=== PATIENT | female | born 1985 | race Caucasian/White ===

== ENCOUNTER → 2017-05-09 | Outpatient (CLI) | payer OTHER ==
[~2017-05-09] MED LIST: ACET325 PO; ALBIPROI INH; ALBU90OI IH; ALBU90OI INH; ALBU90OI61 INH; ALPR.25 PO; AZIT250 PO; AZIT500 PO; Aldactone50 MG PO; BUME1 PO; BUME2 PO; CARV3.125 PO; CARV6.25 PO; CEFU50SU PO; CEPH500 PO; CIPR500 PO; CLIN300 PO; CYCL10 PO; Coreg6.25 MG PO; Culturelle1 CAP PO; ELIQUIS5 MG PO; ERYT500 PO; ESCI10; EXPECTA LIPIL PO; FLUSAL1005; FURO20 PO; Flovent 110 MCG12 GM INH; HYDACE5 PO; HYDACE5325 PO; HYDGUAL120 PO; HYDHCL25 PO; HYDR1TAB94 PO; LEVO750 PO; LISI20 PO; LISI5 PO; LOSA25 PO; Lisinopril2.5 MG PO; Lopressor 25 mg25 MG PO; MAGNESIUM400 MG PO; MAGOXI400 PO; METF500; METF500 PO; METO25; METO25 PO; METO25ER PO; METR500 PO; MULVITMINE; MULVITMINE PO; Metamucil Smooth1 EA PO; NAPR500 PO; NITR100CA PO; Norco 10-325 T1 EACH PO; OXYACE5T; OXYC5 PO; Oxycodone-Apap1 EAC3 PO; PANT40 PO; POTCHL10ER; PRED20 PO; PREGESTERONE PO; PRENZ PO; PROM25 PO; PROMETHAZINE-P118 M1 PO; Pantoprazole So40 MG PO; Prinivil10 MG PO; Prinivil5 MG PO; SPIR25 PO; SPIR50 PO; SULTRIDS PO; TORS10 PO; TORSE20 PO; TRAZ50 PO; TUMS200 MG PO; Ventolin/Prove6.7 GM INH; XARELTO20 MG PO; YASMIN
[2017-05-09 17:57] LABS: Specimen Source URINE
[2017-05-09 18:46] LABS: Appearance, Urine Hazy (Clear); Bilirubin, Urine Neg (Neg); Blood, Urine 5+ (Neg); Color, Urine Yellow (P-Yellow); Glucose Qualitative, Urine Neg (Neg); Ketones, Urine Neg (Neg); Leukocyte Esterase, Urine 3+ (Neg); Nitrite, Urine Neg (Neg); Protein, Urine 1+ (Neg); Specific Gravity, Urine 1.015 (1.003-1.022); Urobilinogen, Urine NORM (Normal)
[2017-05-09 19:45] LABS: White Blood Cells, Urine 25-50 /hpf (0-5)
[2017-05-09 19:46] LABS: Bacteria Many /hpf; Squamous Epithelial Cells Few /hpf (Few)
[2017-05-10 09:07] LABS: Candida species (DNA Probe) Negative (NEGATIVE); G. vaginalis (DNA Probe) Negative (NEGATIVE); T. vaginalis (DNA Probe) Positive (NEGATIVE)
[2017-05-10 12:09] LABS: Source Urine
== END ==
LOC: LAB 16:45
PROVIDERS: Physician Assistant
DX: N89.8 Other specified noninflammatory disorders of vagina (principal)
CPT/HCPCS: 81001; 87086; 87480; 87491; 87510; 87591; 87660

== ENCOUNTER 2017-07-01 12:12 | Inpatient (IN) | payer OTHER ==
[~2017-07-01] VITALS: Ht 160 cm; Wt 109.9 kg
[~2017-07-01 12:12] MED LIST changes: -ACET325 PO; -CARV6.25 PO; -CEFU50SU PO; -Culturelle1 CAP PO; -ELIQUIS5 MG PO; -Flovent 110 MCG12 GM INH; -HYDHCL25 PO; -METR500 PO; -OXYC5 PO; -Oxycodone-Apap1 EAC3 PO; -POTCHL10ER; -Pantoprazole So40 MG PO
[2017-07-01 12:53] LABS: BASOPHILS ABSOLUTE AUTO 0.08 K/mm3 (0.00-0.23); BASOPHILS PERCENT AUTO 1 % (0-2); EOSINOPHILS ABSOLUTE AUTO 0.03 K/mm3 (0.00-0.68); EOSINOPHILS PERCENT AUTO 0 % (0-6); Hematocrit 34.2 % (33.0-51.0); Hemoglobin 10.2 g/dL (11.5-16.0); IMMATURE GRAN ABSOLUTE AUTO 0.03 K/mm3 (0.00-0.10); IMMATURE GRAN PERCENT AUTO 0 % (0-1); LYMPHOCYTES PERCENT AUTO 15 % (21-46); MONOCYTES ABSOLUTE AUTO 1.17 K/mm3 (0.16-1.47); MONOCYTES PERCENT AUTO 10 % (4-13); Mean Corpuscular HGB 21.6 pg (26.0-34.0); Mean Corpuscular HGB Conc 29.8 g/dL (31.5-36.5); Mean Corpuscular Volume 73 fL (80-100); Mean Platelet Volume 10.1 fL (9.1-12.4); NEUTROPHILS ABSOLUTE AUTO 8.61 K/mm3 (1.96-9.15); NEUTROPHILS PERCENT AUTO 74 % (41-73); NRBC ABSOLUTE 0.06 K/mm3 (0.00-0.02); NRBC Auto 0.5 /100 WBC (0.0-0.2); Platelet Count 510 K/mm3 (150-400); RDW Coefficient Variation 17.4 % (11.7-14.2); RDW Standard Deviation 45.3 fL (35.1-46.3); Red Blood Cell Count 4.72 M/mm3 (3.80-5.20); White Blood Cell Count 11.62 K/mm3 (4.00-11.30)
[2017-07-01 13:22] LABS: Alanine Aminotransfer (ALT/SGP 68 U/L (12-78); Albumin, Blood 2.8 g/dL (3.4-5.0); Albumin/Globulin Ratio 0.7 (0.8-1.8); Alk Phos 107 U/L (50-136); Anion Gap 11 mmol/L (6-16); Aspartate Aminotrans (AST/SGOT 35 U/L (12-37); Bilirubin, Total 1.3 mg/dL (0.1-1.0); Blood Urea Nitrogen 22 mg/dL (8-24); Bun/Creatinine Ratio 23.5 (12.0-20.0); CO2, Blood 24 mmol/L (21-32); Chloride, Blood 101 mmol/L (98-108); Creatinine, Blood 0.94 mg/dL (0.40-1.00); Globulin, Blood 4.1 g/dL (2.2-4.0); Glomerular Filtration Rate >60 (60-); Glucose, Blood 100 mg/dL (70-99); Sodium, Blood 136 mmol/L (136-145); Total Protein, Blood 6.9 g/dL (6.4-8.2); Troponin I 0.017 ng/mL (0.000-0.040)
[2017-07-01] MEDS ORDERED: Pantoprazole So40 MG PO (13:28)
[2017-07-01] MEDS ORDERED: CARV6.25 PO (13:28)
[2017-07-02 05:41] LABS: BASOPHILS ABSOLUTE AUTO 0.08 K/mm3 (0.00-0.23); BASOPHILS PERCENT AUTO 1 % (0-2); EOSINOPHILS ABSOLUTE AUTO 0.18 K/mm3 (0.00-0.68); EOSINOPHILS PERCENT AUTO 3 % (0-6); Hematocrit 30.7 % (33.0-51.0); Mean Corpuscular HGB 21.3 pg (26.0-34.0); Mean Corpuscular HGB Conc 29.3 g/dL (31.5-36.5); Mean Corpuscular Volume 73 fL (80-100); Mean Platelet Volume 10.3 fL (9.1-12.4); NRBC ABSOLUTE 0.05 K/mm3 (0.00-0.02); NRBC Auto 0.7 /100 WBC (0.0-0.2); Platelet Count 430 K/mm3 (150-400); RDW Coefficient Variation 17.4 % (11.7-14.2); RDW Standard Deviation 45.1 fL (35.1-46.3); Red Blood Cell Count 4.22 M/mm3 (3.80-5.20); White Blood Cell Count 6.68 K/mm3 (4.00-11.30)
[2017-07-02 05:42] LABS: IMMATURE GRAN ABSOLUTE AUTO 0.03 K/mm3 (0.00-0.10); IMMATURE GRAN PERCENT AUTO 0 % (0-1); LYMPHOCYTES ABSOLUTE AUTO 2.44 K/mm3 (0.84-5.20); LYMPHOCYTES PERCENT AUTO 37 % (21-46); MONOCYTES ABSOLUTE AUTO 0.77 K/mm3 (0.16-1.47); MONOCYTES PERCENT AUTO 12 % (4-13); NEUTROPHILS ABSOLUTE AUTO 3.18 K/mm3 (1.96-9.15); NEUTROPHILS PERCENT AUTO 48 % (41-73)
[2017-07-02 06:16] LABS: Anion Gap 12 mmol/L (6-16); Blood Urea Nitrogen 26 mg/dL (8-24); CO2, Blood 25 mmol/L (21-32); Calcium, Blood 7.8 mg/dL (8.5-10.1); Chloride, Blood 99 mmol/L (98-108); Creatinine, Blood 1.04 mg/dL (0.40-1.00); Glomerular Filtration Rate >60 (60-); Glucose, Blood 99 mg/dL (70-99); Potassium, Blood 3.6 mmol/L (3.5-5.5); Sodium, Blood 136 mmol/L (136-145)
[2017-07-03] MEDS ORDERED: CEFU50SU PO (10:01)
[2017-11-30] MEDS ORDERED: Culturelle1 CAP PO (15:00)
[2017-11-30] MEDS ORDERED: CIPR500 PO (15:01)
[2017-11-30] MEDS ORDERED: METR500 PO (15:02)
[2018-01-15] MEDS ORDERED: HYDR1TAB94 PO (14:12)
[2018-01-15] MEDS ORDERED: HYDHCL25 PO (14:32)
[2018-02-25] MEDS ORDERED: ELIQUIS5 MG PO (13:51)
[2018-02-25] MEDS ORDERED: POTCHL10ER (13:53)
== END 2017-07-03 10:20 | disposition home or self-care (01) | DRG 194 ==
LOC: ER 12:12 → MEDS 18:05 → ER 20:07 → MEDS 20:07 → ENPENDDIS 07-03 08:58 → MEDS 07-03 10:20
PROVIDERS: Hospitalist; Physician Assistant
DX: J18.9 Pneumonia, unspecified organism (principal); R04.2 Hemoptysis; I47.2 Ventricular tachycardia; I42.9 Cardiomyopathy, unspecified; I50.40 Unspecified combined systolic (congestive) and diastolic (congestive) heart failure; Z68.41 Body mass index [BMI] 40.0-44.9, adult; E66.9 Obesity, unspecified; D64.9 Anemia, unspecified; Z86.711 Personal history of pulmonary embolism; Z79.899 Other long term (current) drug therapy; Z79.84 Long term (current) use of oral hypoglycemic drugs; Z88.0 Allergy status to penicillin; Z88.8 Allergy status to other drugs, medicaments and biological substances
CPT/HCPCS: 36415; 71046; 71260; 80048; 80053; 83880; 84484; 85025; 86850; 86900; 86901; 93005; 93010; 96374; 99285; J0696; J1650; J2405; J7030; Q9967

== ENCOUNTER 2017-07-12 08:46 | Emergency (ER) | payer OTHER ==
[~2017-07-12] VITALS: Ht 160 cm; Wt 104.3 kg
[~2017-07-12 08:46] MED LIST changes: +CARV6.25 PO; +CEFU50SU PO; +Pantoprazole So40 MG PO
[2017-07-12 09:50] LABS: BASOPHILS ABSOLUTE AUTO 0.09 K/mm3 (0.00-0.23); BASOPHILS PERCENT AUTO 1 % (0-2); EOSINOPHILS ABSOLUTE AUTO 0.04 K/mm3 (0.00-0.68); EOSINOPHILS PERCENT AUTO 1 % (0-6); Hematocrit 32.3 % (33.0-51.0); Hemoglobin 9.3 g/dL (11.5-16.0); IMMATURE GRAN ABSOLUTE AUTO 0.03 K/mm3 (0.00-0.10); IMMATURE GRAN PERCENT AUTO 0 % (0-1); LYMPHOCYTES ABSOLUTE AUTO 1.58 K/mm3 (0.84-5.20); LYMPHOCYTES PERCENT AUTO 20 % (21-46); MONOCYTES ABSOLUTE AUTO 0.72 K/mm3 (0.16-1.47); MONOCYTES PERCENT AUTO 9 % (4-13); Mean Corpuscular HGB 20.8 pg (26.0-34.0); Mean Corpuscular HGB Conc 28.8 g/dL (31.5-36.5); Mean Corpuscular Volume 72 fL (80-100); Mean Platelet Volume 10.4 fL (9.1-12.4); NEUTROPHILS ABSOLUTE AUTO 5.46 K/mm3 (1.96-9.15); NEUTROPHILS PERCENT AUTO 69 % (41-73); NRBC ABSOLUTE 0.05 K/mm3 (0.00-0.02); NRBC Auto 0.6 /100 WBC (0.0-0.2); Platelet Count 414 K/mm3 (150-400); RDW Coefficient Variation 18.1 % (11.7-14.2); RDW Standard Deviation 46.2 fL (35.1-46.3); Red Blood Cell Count 4.48 M/mm3 (3.80-5.20); White Blood Cell Count 7.92 K/mm3 (4.00-11.30)
[2017-07-12 10:09] LABS: Alanine Aminotransfer (ALT/SGP 34 U/L (12-78); Albumin, Blood 2.6 g/dL (3.4-5.0); Albumin/Globulin Ratio 0.6 (0.8-1.8); Alk Phos 96 U/L (50-136); Anion Gap 11 mmol/L (6-16); Aspartate Aminotrans (AST/SGOT 23 U/L (12-37); Bilirubin, Total 2.5 mg/dL (0.1-1.0); Blood Urea Nitrogen 27 mg/dL (8-24); Bun/Creatinine Ratio 28.2 (12.0-20.0); CO2, Blood 26 mmol/L (21-32); Calcium, Blood 8.6 mg/dL (8.5-10.1); Chloride, Blood 99 mmol/L (98-108); Creatinine, Blood 0.96 mg/dL (0.40-1.00); Glomerular Filtration Rate >60 (60-); Glucose, Blood 110 mg/dL (70-99); Potassium, Blood 3.8 mmol/L (3.5-5.5); Sodium, Blood 136 mmol/L (136-145); Total Protein, Blood 6.6 g/dL (6.4-8.2); Troponin I <0.015 ng/mL (0.000-0.040)
[2017-07-12] MEDS ORDERED: LEVO750 PO (12:07)
[2017-11-30] MEDS ORDERED: Culturelle1 CAP PO (15:00)
[2017-11-30] MEDS ORDERED: CIPR500 PO (15:01)
[2017-11-30] MEDS ORDERED: METR500 PO (15:02)
[2018-01-15] MEDS ORDERED: HYDR1TAB94 PO (14:12)
[2018-01-15] MEDS ORDERED: HYDHCL25 PO (14:32)
[2018-02-25] MEDS ORDERED: ELIQUIS5 MG PO (13:51)
[2018-02-25] MEDS ORDERED: POTCHL10ER (13:53)
== END 2017-07-12 12:47 | disposition home or self-care (01) ==
LOC: ER 08:46
PROVIDERS: Emergency Medicine
DX: J18.9 Pneumonia, unspecified organism (principal); R04.2 Hemoptysis; I50.9 Heart failure, unspecified; Z87.891 Personal history of nicotine dependence; Z88.0 Allergy status to penicillin; Z88.8 Allergy status to other drugs, medicaments and biological substances; Z79.899 Other long term (current) drug therapy
CPT/HCPCS: 36415; 71046; 80053; 83690; 83880; 84484; 85025; 93005; 93010; 96374; 99283; J2405

== ENCOUNTER 2017-07-15 10:32 | Inpatient (IN) | payer OTHER ==
[~2017-07-15] VITALS: Ht 160 cm; Wt 123.8 kg
[2017-07-15 11:06] LABS: BASOPHILS ABSOLUTE AUTO 0.06 K/mm3 (0.00-0.23); BASOPHILS PERCENT AUTO 1 % (0-2); EOSINOPHILS ABSOLUTE AUTO 0.13 K/mm3 (0.00-0.68); EOSINOPHILS PERCENT AUTO 2 % (0-6); Hematocrit 29.6 % (33.0-51.0); Hemoglobin 8.5 g/dL (11.5-16.0); IMMATURE GRAN ABSOLUTE AUTO 0.03 K/mm3 (0.00-0.10); IMMATURE GRAN PERCENT AUTO 0 % (0-1); LYMPHOCYTES ABSOLUTE AUTO 1.57 K/mm3 (0.84-5.20); LYMPHOCYTES PERCENT AUTO 22 % (21-46); MONOCYTES PERCENT AUTO 12 % (4-13); Mean Corpuscular HGB 20.3 pg (26.0-34.0); Mean Corpuscular HGB Conc 28.7 g/dL (31.5-36.5); Mean Corpuscular Volume 71 fL (80-100); Mean Platelet Volume 10.2 fL (9.1-12.4); NEUTROPHILS ABSOLUTE AUTO 4.57 K/mm3 (1.96-9.15); NEUTROPHILS PERCENT AUTO 63 % (41-73); NRBC ABSOLUTE 0.09 K/mm3 (0.00-0.02); NRBC Auto 1.2 /100 WBC (0.0-0.2); Platelet Count 390 K/mm3 (150-400); RDW Coefficient Variation 18.3 % (11.7-14.2); RDW Standard Deviation 45.3 fL (35.1-46.3); Red Blood Cell Count 4.19 M/mm3 (3.80-5.20); White Blood Cell Count 7.26 K/mm3 (4.00-11.30)
[2017-07-15 11:26] LABS: Alanine Aminotransfer (ALT/SGP 43 U/L (12-78); Albumin, Blood 2.7 g/dL (3.4-5.0); Albumin/Globulin Ratio 0.7 (0.8-1.8); Alk Phos 109 U/L (50-136); Anion Gap 10 mmol/L (6-16); Aspartate Aminotrans (AST/SGOT 36 U/L (12-37); Bilirubin, Total 2.1 mg/dL (0.1-1.0); Blood Urea Nitrogen 44 mg/dL (8-24); Bun/Creatinine Ratio 39.3 (12.0-20.0); CO2, Blood 28 mmol/L (21-32); Calcium, Blood 8.4 mg/dL (8.5-10.1); Chloride, Blood 97 mmol/L (98-108); Creatinine, Blood 1.12 mg/dL (0.40-1.00); Globulin, Blood 3.8 g/dL (2.2-4.0); Glomerular Filtration Rate >60 (60-); Glucose, Blood 83 mg/dL (70-99); Potassium, Blood 3.4 mmol/L (3.5-5.5); Sodium, Blood 135 mmol/L (136-145); Total Protein, Blood 6.5 g/dL (6.4-8.2); Troponin I <0.015 ng/mL (0.000-0.040)
[2017-07-15] MEDS ORDERED: Flovent 110 MCG12 GM INH (15:58)
[2017-07-15 17:13] LABS: Hematocrit 28.7 % (33.0-51.0); Hemoglobin 8.1 g/dL (11.5-16.0)
[2017-07-16 04:24] LABS: BASOPHILS ABSOLUTE AUTO 0.05 K/mm3 (0.00-0.23); BASOPHILS PERCENT AUTO 1 % (0-2); EOSINOPHILS ABSOLUTE AUTO 0.18 K/mm3 (0.00-0.68); EOSINOPHILS PERCENT AUTO 3 % (0-6); Hematocrit 28.2 % (33.0-51.0); Hemoglobin 8.2 g/dL (11.5-16.0); Mean Corpuscular HGB 20.4 pg (26.0-34.0); Mean Corpuscular HGB Conc 29.1 g/dL (31.5-36.5); Mean Corpuscular Volume 70 fL (80-100); Mean Platelet Volume 10.7 fL (9.1-12.4); NRBC ABSOLUTE 0.09 K/mm3 (0.00-0.02); NRBC Auto 1.3 /100 WBC (0.0-0.2); Platelet Count 356 K/mm3 (150-400); RDW Coefficient Variation 18.2 % (11.7-14.2); RDW Standard Deviation 44.8 fL (35.1-46.3); Red Blood Cell Count 4.02 M/mm3 (3.80-5.20); White Blood Cell Count 7.19 K/mm3 (4.00-11.30)
[2017-07-16 04:34] LABS: IMMATURE GRAN ABSOLUTE AUTO 0.04 K/mm3 (0.00-0.10); IMMATURE GRAN PERCENT AUTO 1 % (0-1); LYMPHOCYTES ABSOLUTE AUTO 2.21 K/mm3 (0.84-5.20); LYMPHOCYTES PERCENT AUTO 31 % (21-46); MONOCYTES ABSOLUTE AUTO 1.02 K/mm3 (0.16-1.47); MONOCYTES PERCENT AUTO 14 % (4-13); NEUTROPHILS ABSOLUTE AUTO 3.69 K/mm3 (1.96-9.15); NEUTROPHILS PERCENT AUTO 51 % (41-73)
[2017-07-16 04:41] LABS: Bun/Creatinine Ratio 37.4 (12.0-20.0); Calcium, Blood 7.9 mg/dL (8.5-10.1); Creatinine, Blood 1.23 mg/dL (0.40-1.00); Potassium, Blood 3.4 mmol/L (3.5-5.5)
[2017-07-16 07:42] LABS: Magnesium, Blood 2.4 mg/dL (1.6-2.4)
[2017-07-16 11:41] LABS: U Amphetamine Screen Not Detected; U Barbituate Screen Not Detected; U Benzodiazapine Screen Not Detected; U Buprenorphine Screen Not Detected; U Cannabinoids Screen Not Detected; U Cocaine Screen Not Detected; U Methadone Screen Not Detected; U Methamphetamine Screen Not Detected; U Opiates Screen Not Detected; U Oxycodone Screen Not Detected; U Phencyclidine Screen Not Detected; U Propoxyphene Screen Not Detected
[2017-07-16 11:46] LABS: Percent Saturation 5.1 % (15.0-50.0)
[2017-07-16 14:35] LABS: Source, Urine Voided
[2017-07-16 14:41] LABS: Appearance, Urine Clear (Clear); Bilirubin, Urine Neg (Neg); Blood, Urine Neg (Neg); Color, Urine Yellow (P-Yellow); Glucose Qualitative, Urine Neg (Neg); Ketones, Urine Neg (Neg); Leukocyte Esterase, Urine Neg (Neg); Nitrite, Urine Neg (Neg); Protein, Urine Neg (Neg); Specific Gravity, Urine 1.015 (1.003-1.022); Urobilinogen, Urine NORM (Normal)
[2017-07-17 04:02] LABS: Hematocrit 29.1 % (33.0-51.0); Hemoglobin 8.4 g/dL (11.5-16.0); Mean Corpuscular HGB 20.4 pg (26.0-34.0); Mean Corpuscular HGB Conc 28.9 g/dL (31.5-36.5); Mean Corpuscular Volume 71 fL (80-100); Mean Platelet Volume 10.6 fL (9.1-12.4); NRBC ABSOLUTE 0.09 K/mm3 (0.00-0.02); NRBC Auto 1.2 /100 WBC (0.0-0.2); Platelet Count 346 K/mm3 (150-400); RDW Coefficient Variation 18.4 % (11.7-14.2); RDW Standard Deviation 45.8 fL (35.1-46.3); Red Blood Cell Count 4.12 M/mm3 (3.80-5.20); White Blood Cell Count 7.41 K/mm3 (4.00-11.30)
[2017-07-17 04:20] LABS: Bun/Creatinine Ratio 38.8 (12.0-20.0); Calcium, Blood 7.8 mg/dL (8.5-10.1); Creatinine, Blood 1.21 mg/dL (0.40-1.00); Potassium, Blood 4.5 mmol/L (3.5-5.5)
[2017-07-17 04:48] LABS: BASOPHILS PERCENT MAN 0 % (0-2); EOSINOPHILS ABSOLUTE MAN 0.14 K/mm3 (0.00-0.68); EOSINOPHILS PERCENT MAN 2 % (0-6); LYMPHOCYTES % ATYPICAL MANUAL 9 % (0-0); LYMPHOCYTES ABSOLUTE MAN 2.96 K/mm3 (0.84-5.20); LYMPHOCYTES PERCENT MAN 31 % (21-46); MONOCYTES ABSOLUTE MAN 0.51 K/mm3 (0.16-1.47); MONOCYTES PERCENT MAN 7 % (4-13); NEUTROPHILS ABSOLUTE MAN 3.77 K/mm3 (1.96-9.15); SEG NEUTROPHILS PERCENT MAN 51 % (41-73); TOTAL CELLS COUNTED 100
[2017-07-18 05:14] LABS: Hematocrit 27.1 % (33.0-51.0); Hemoglobin 7.8 g/dL (11.5-16.0); Mean Corpuscular HGB 20.1 pg (26.0-34.0); Mean Corpuscular HGB Conc 28.8 g/dL (31.5-36.5); Mean Corpuscular Volume 70 fL (80-100); Mean Platelet Volume 10.7 fL (9.1-12.4); NRBC ABSOLUTE 0.13 K/mm3 (0.00-0.02); NRBC Auto 1.9 /100 WBC (0.0-0.2); Platelet Count 311 K/mm3 (150-400); RDW Coefficient Variation 18.4 % (11.7-14.2); RDW Standard Deviation 44.7 fL (35.1-46.3); Red Blood Cell Count 3.89 M/mm3 (3.80-5.20); White Blood Cell Count 6.82 K/mm3 (4.00-11.30)
[2017-07-18 05:37] LABS: Bun/Creatinine Ratio 36.5 (12.0-20.0); Calcium, Blood 7.7 mg/dL (8.5-10.1); Creatinine, Blood 1.15 mg/dL (0.40-1.00); Magnesium, Blood 2.3 mg/dL (1.6-2.4); Potassium, Blood 3.8 mmol/L (3.5-5.5)
[2017-07-18 05:38] LABS: BAND PERCENT MAN 1 % (0-8); BASOPHILS PERCENT MAN 0 % (0-2); EOSINOPHILS ABSOLUTE MAN 0.13 K/mm3 (0.00-0.68); EOSINOPHILS PERCENT MAN 2 % (0-6); LYMPHOCYTES % ATYPICAL MANUAL 4 % (0-0); LYMPHOCYTES ABSOLUTE MAN 2.52 K/mm3 (0.84-5.20); LYMPHOCYTES PERCENT MAN 33 % (21-46); MONOCYTES PERCENT MAN 3 % (4-13); NEUTROPHILS ABSOLUTE MAN 3.95 K/mm3 (1.96-9.15); SEG NEUTROPHILS PERCENT MAN 57 % (41-73); TOTAL CELLS COUNTED 100
[2017-07-18 11:31] LABS: ANA Negative (NEG); Myeloperoxidase Antibody <0.2 AI (<1.0)
[2017-07-18 18:23] LABS: ANCA <1:20
[2017-07-19 05:41] LABS: BASOPHILS ABSOLUTE AUTO 0.06 K/mm3 (0.00-0.23); BASOPHILS PERCENT AUTO 1 % (0-2); EOSINOPHILS ABSOLUTE AUTO 0.21 K/mm3 (0.00-0.68); EOSINOPHILS PERCENT AUTO 3 % (0-6); Hematocrit 27.5 % (33.0-51.0); IMMATURE GRAN ABSOLUTE AUTO 0.02 K/mm3 (0.00-0.10); IMMATURE GRAN PERCENT AUTO 0 % (0-1); LYMPHOCYTES ABSOLUTE AUTO 1.99 K/mm3 (0.84-5.20); LYMPHOCYTES PERCENT AUTO 28 % (21-46); MONOCYTES ABSOLUTE AUTO 1.05 K/mm3 (0.16-1.47); MONOCYTES PERCENT AUTO 15 % (4-13); Mean Corpuscular HGB 20.6 pg (26.0-34.0); Mean Corpuscular HGB Conc 29.1 g/dL (31.5-36.5); Mean Corpuscular Volume 71 fL (80-100); Mean Platelet Volume 10.8 fL (9.1-12.4); NEUTROPHILS ABSOLUTE AUTO 3.83 K/mm3 (1.96-9.15); NEUTROPHILS PERCENT AUTO 54 % (41-73); NRBC ABSOLUTE 0.14 K/mm3 (0.00-0.02); Platelet Count 324 K/mm3 (150-400); RDW Coefficient Variation 18.6 % (11.7-14.2); RDW Standard Deviation 45.6 fL (35.1-46.3); Red Blood Cell Count 3.88 M/mm3 (3.80-5.20); White Blood Cell Count 7.16 K/mm3 (4.00-11.30)
[2017-07-19 05:55] LABS: Bun/Creatinine Ratio 31.9 (12.0-20.0); Creatinine, Blood 1.19 mg/dL (0.40-1.00); Potassium, Blood 3.3 mmol/L (3.5-5.5)
[2017-07-20 06:00] LABS: BASOPHILS ABSOLUTE AUTO 0.06 K/mm3 (0.00-0.23); BASOPHILS PERCENT AUTO 1 % (0-2); EOSINOPHILS ABSOLUTE AUTO 0.22 K/mm3 (0.00-0.68); EOSINOPHILS PERCENT AUTO 4 % (0-6); Hematocrit 29.3 % (33.0-51.0); Hemoglobin 8.3 g/dL (11.5-16.0); IMMATURE GRAN ABSOLUTE AUTO 0.03 K/mm3 (0.00-0.10); IMMATURE GRAN PERCENT AUTO 1 % (0-1); LYMPHOCYTES ABSOLUTE AUTO 1.63 K/mm3 (0.84-5.20); LYMPHOCYTES PERCENT AUTO 26 % (21-46); MONOCYTES ABSOLUTE AUTO 0.83 K/mm3 (0.16-1.47); MONOCYTES PERCENT AUTO 13 % (4-13); Mean Corpuscular HGB 20.6 pg (26.0-34.0); Mean Corpuscular HGB Conc 28.3 g/dL (31.5-36.5); Mean Corpuscular Volume 73 fL (80-100); Mean Platelet Volume 10.4 fL (9.1-12.4); NEUTROPHILS ABSOLUTE AUTO 3.42 K/mm3 (1.96-9.15); NEUTROPHILS PERCENT AUTO 55 % (41-73); NRBC Auto 1.6 /100 WBC (0.0-0.2); Platelet Count 290 K/mm3 (150-400); RDW Coefficient Variation 19.9 % (11.7-14.2); RDW Standard Deviation 47.9 fL (35.1-46.3); Red Blood Cell Count 4.03 M/mm3 (3.80-5.20); White Blood Cell Count 6.19 K/mm3 (4.00-11.30)
[2017-07-20 06:21] LABS: Albumin, Blood 2.1 g/dL (3.4-5.0); Anion Gap 10 mmol/L (6-16); Blood Urea Nitrogen 31 mg/dL (8-24); Bun/Creatinine Ratio 31.6 (12.0-20.0); CO2, Blood 26 mmol/L (21-32); Calcium, Blood 7.6 mg/dL (8.5-10.1); Chloride, Blood 102 mmol/L (98-108); Creatinine, Blood 0.98 mg/dL (0.40-1.00); Glomerular Filtration Rate >60 (60-); Glucose, Blood 118 mg/dL (70-99); Phosphorus, Blood 2.8 mg/dL (2.5-4.9); Potassium, Blood 3.6 mmol/L (3.5-5.5); Sodium, Blood 138 mmol/L (136-145)
[2017-07-21 05:28] LABS: BASOPHILS ABSOLUTE AUTO 0.07 K/mm3 (0.00-0.23); BASOPHILS PERCENT AUTO 1 % (0-2); EOSINOPHILS ABSOLUTE AUTO 0.23 K/mm3 (0.00-0.68); EOSINOPHILS PERCENT AUTO 4 % (0-6); Hematocrit 30.9 % (33.0-51.0); Hemoglobin 8.4 g/dL (11.5-16.0); IMMATURE GRAN ABSOLUTE AUTO 0.03 K/mm3 (0.00-0.10); IMMATURE GRAN PERCENT AUTO 1 % (0-1); LYMPHOCYTES ABSOLUTE AUTO 1.85 K/mm3 (0.84-5.20); LYMPHOCYTES PERCENT AUTO 32 % (21-46); MONOCYTES ABSOLUTE AUTO 0.77 K/mm3 (0.16-1.47); MONOCYTES PERCENT AUTO 13 % (4-13); Mean Corpuscular HGB 20.4 pg (26.0-34.0); Mean Corpuscular HGB Conc 27.2 g/dL (31.5-36.5); Mean Corpuscular Volume 75 fL (80-100); NEUTROPHILS PERCENT AUTO 49 % (41-73); NRBC ABSOLUTE 0.07 K/mm3 (0.00-0.02); NRBC Auto 1.2 /100 WBC (0.0-0.2); Platelet Count 290 K/mm3 (150-400); RDW Coefficient Variation 20.8 % (11.7-14.2); RDW Standard Deviation 48.8 fL (35.1-46.3); Red Blood Cell Count 4.12 M/mm3 (3.80-5.20); White Blood Cell Count 5.75 K/mm3 (4.00-11.30)
[2017-07-21 06:14] LABS: Albumin, Blood 2.1 g/dL (3.4-5.0); Anion Gap 10 mmol/L (6-16); Blood Urea Nitrogen 24 mg/dL (8-24); Bun/Creatinine Ratio 26.3 (12.0-20.0); CO2, Blood 24 mmol/L (21-32); Calcium, Blood 7.7 mg/dL (8.5-10.1); Chloride, Blood 104 mmol/L (98-108); Creatinine, Blood 0.91 mg/dL (0.40-1.00); Glomerular Filtration Rate >60 (60-); Glucose, Blood 137 mg/dL (70-99); Magnesium, Blood 1.8 mg/dL (1.6-2.4); Phosphorus, Blood 2.5 mg/dL (2.5-4.9); Potassium, Blood 3.5 mmol/L (3.5-5.5); Sodium, Blood 138 mmol/L (136-145)
[2017-07-22 05:00] LABS: BASOPHILS ABSOLUTE AUTO 0.07 K/mm3 (0.00-0.23); BASOPHILS PERCENT AUTO 1 % (0-2); EOSINOPHILS ABSOLUTE AUTO 0.13 K/mm3 (0.00-0.68); EOSINOPHILS PERCENT AUTO 2 % (0-6); Hematocrit 30.7 % (33.0-51.0); Hemoglobin 8.5 g/dL (11.5-16.0); IMMATURE GRAN ABSOLUTE AUTO 0.03 K/mm3 (0.00-0.10); IMMATURE GRAN PERCENT AUTO 0 % (0-1); LYMPHOCYTES ABSOLUTE AUTO 1.94 K/mm3 (0.84-5.20); LYMPHOCYTES PERCENT AUTO 24 % (21-46); MONOCYTES ABSOLUTE AUTO 0.96 K/mm3 (0.16-1.47); MONOCYTES PERCENT AUTO 12 % (4-13); Mean Corpuscular HGB 20.8 pg (26.0-34.0); Mean Corpuscular HGB Conc 27.7 g/dL (31.5-36.5); Mean Corpuscular Volume 75 fL (80-100); Mean Platelet Volume 10.5 fL (9.1-12.4); NEUTROPHILS PERCENT AUTO 61 % (41-73); NRBC ABSOLUTE 0.03 K/mm3 (0.00-0.02); NRBC Auto 0.4 /100 WBC (0.0-0.2); Platelet Count 301 K/mm3 (150-400); RDW Coefficient Variation 22.1 % (11.7-14.2); Red Blood Cell Count 4.08 M/mm3 (3.80-5.20); White Blood Cell Count 8.13 K/mm3 (4.00-11.30)
[2017-07-22 05:30] LABS: Albumin, Blood 2.3 g/dL (3.4-5.0); Anion Gap 8 mmol/L (6-16); Blood Urea Nitrogen 26 mg/dL (8-24); CO2, Blood 25 mmol/L (21-32); Chloride, Blood 102 mmol/L (98-108); Creatinine, Blood 1.24 mg/dL (0.40-1.00); Glomerular Filtration Rate 54 (60-); Glucose, Blood 109 mg/dL (70-99); Magnesium, Blood 1.7 mg/dL (1.6-2.4); Phosphorus, Blood 3.6 mg/dL (2.5-4.9); Potassium, Blood 4.2 mmol/L (3.5-5.5); Sodium, Blood 135 mmol/L (136-145)
[2017-07-23 04:55] LABS: BASOPHILS ABSOLUTE AUTO 0.09 K/mm3 (0.00-0.23); BASOPHILS PERCENT AUTO 1 % (0-2); EOSINOPHILS PERCENT AUTO 4 % (0-6); Hematocrit 30.4 % (33.0-51.0); Hemoglobin 8.3 g/dL (11.5-16.0); IMMATURE GRAN ABSOLUTE AUTO 0.03 K/mm3 (0.00-0.10); IMMATURE GRAN PERCENT AUTO 0 % (0-1); LYMPHOCYTES ABSOLUTE AUTO 2.02 K/mm3 (0.84-5.20); LYMPHOCYTES PERCENT AUTO 26 % (21-46); MONOCYTES ABSOLUTE AUTO 0.98 K/mm3 (0.16-1.47); MONOCYTES PERCENT AUTO 13 % (4-13); Mean Corpuscular HGB 20.8 pg (26.0-34.0); Mean Corpuscular HGB Conc 27.3 g/dL (31.5-36.5); Mean Corpuscular Volume 76 fL (80-100); Mean Platelet Volume 10.8 fL (9.1-12.4); NEUTROPHILS ABSOLUTE AUTO 4.42 K/mm3 (1.96-9.15); NEUTROPHILS PERCENT AUTO 56 % (41-73); NRBC ABSOLUTE 0.02 K/mm3 (0.00-0.02); NRBC Auto 0.3 /100 WBC (0.0-0.2); Platelet Count 277 K/mm3 (150-400); RDW Standard Deviation 50.2 fL (35.1-46.3); Red Blood Cell Count 3.99 M/mm3 (3.80-5.20); White Blood Cell Count 7.84 K/mm3 (4.00-11.30)
[2017-07-23 05:17] LABS: Albumin, Blood 2.2 g/dL (3.4-5.0); Anion Gap 8 mmol/L (6-16); Blood Urea Nitrogen 32 mg/dL (8-24); Bun/Creatinine Ratio 25.2 (12.0-20.0); CO2, Blood 25 mmol/L (21-32); Calcium, Blood 7.9 mg/dL (8.5-10.1); Chloride, Blood 102 mmol/L (98-108); Creatinine, Blood 1.27 mg/dL (0.40-1.00); Glomerular Filtration Rate 52 (60-); Glucose, Blood 88 mg/dL (70-99); Phosphorus, Blood 4.4 mg/dL (2.5-4.9); Potassium, Blood 4.6 mmol/L (3.5-5.5); Sodium, Blood 135 mmol/L (136-145)
[2017-07-24 04:17] LABS: BASOPHILS ABSOLUTE AUTO 0.07 K/mm3 (0.00-0.23); BASOPHILS PERCENT AUTO 1 % (0-2); EOSINOPHILS ABSOLUTE AUTO 0.38 K/mm3 (0.00-0.68); EOSINOPHILS PERCENT AUTO 5 % (0-6); Hematocrit 31.5 % (33.0-51.0); Hemoglobin 8.7 g/dL (11.5-16.0); IMMATURE GRAN ABSOLUTE AUTO 0.04 K/mm3 (0.00-0.10); IMMATURE GRAN PERCENT AUTO 1 % (0-1); LYMPHOCYTES ABSOLUTE AUTO 1.79 K/mm3 (0.84-5.20); LYMPHOCYTES PERCENT AUTO 24 % (21-46); MONOCYTES ABSOLUTE AUTO 0.87 K/mm3 (0.16-1.47); MONOCYTES PERCENT AUTO 12 % (4-13); Mean Corpuscular HGB 21.4 pg (26.0-34.0); Mean Corpuscular HGB Conc 27.6 g/dL (31.5-36.5); Mean Corpuscular Volume 78 fL (80-100); Mean Platelet Volume 10.4 fL (9.1-12.4); NEUTROPHILS ABSOLUTE AUTO 4.22 K/mm3 (1.96-9.15); NEUTROPHILS PERCENT AUTO 57 % (41-73); Platelet Count 271 K/mm3 (150-400); RDW Standard Deviation 52.5 fL (35.1-46.3); Red Blood Cell Count 4.06 M/mm3 (3.80-5.20); White Blood Cell Count 7.37 K/mm3 (4.00-11.30)
[2017-07-24 04:42] LABS: Albumin, Blood 2.5 g/dL (3.4-5.0); Anion Gap 6 mmol/L (6-16); Blood Urea Nitrogen 38 mg/dL (8-24); Bun/Creatinine Ratio 24.4 (12.0-20.0); CO2, Blood 27 mmol/L (21-32); Calcium, Blood 8.2 mg/dL (8.5-10.1); Chloride, Blood 102 mmol/L (98-108); Creatinine, Blood 1.56 mg/dL (0.40-1.00); Glomerular Filtration Rate 41 (60-); Glucose, Blood 75 mg/dL (70-99); Phosphorus, Blood 5.6 mg/dL (2.5-4.9); Potassium, Blood 4.5 mmol/L (3.5-5.5); Sodium, Blood 135 mmol/L (136-145)
[2017-07-25 04:46] LABS: BASOPHILS ABSOLUTE AUTO 0.05 K/mm3 (0.00-0.23); BASOPHILS PERCENT AUTO 1 % (0-2); EOSINOPHILS ABSOLUTE AUTO 0.31 K/mm3 (0.00-0.68); EOSINOPHILS PERCENT AUTO 5 % (0-6); Hematocrit 33.7 % (33.0-51.0); Hemoglobin 9.3 g/dL (11.5-16.0); IMMATURE GRAN ABSOLUTE AUTO 0.02 K/mm3 (0.00-0.10); IMMATURE GRAN PERCENT AUTO 0 % (0-1); LYMPHOCYTES ABSOLUTE AUTO 1.85 K/mm3 (0.84-5.20); LYMPHOCYTES PERCENT AUTO 28 % (21-46); MONOCYTES ABSOLUTE AUTO 0.69 K/mm3 (0.16-1.47); MONOCYTES PERCENT AUTO 11 % (4-13); Mean Corpuscular HGB 21.3 pg (26.0-34.0); Mean Corpuscular HGB Conc 27.6 g/dL (31.5-36.5); Mean Corpuscular Volume 77 fL (80-100); Mean Platelet Volume 10.3 fL (9.1-12.4); NEUTROPHILS ABSOLUTE AUTO 3.65 K/mm3 (1.96-9.15); NEUTROPHILS PERCENT AUTO 56 % (41-73); Platelet Count 266 K/mm3 (150-400); RDW Standard Deviation 54.6 fL (35.1-46.3); Red Blood Cell Count 4.37 M/mm3 (3.80-5.20); White Blood Cell Count 6.57 K/mm3 (4.00-11.30)
[2017-07-25 05:08] LABS: Albumin, Blood 2.6 g/dL (3.4-5.0); Anion Gap 5 mmol/L (6-16); Blood Urea Nitrogen 27 mg/dL (8-24); Bun/Creatinine Ratio 25.7 (12.0-20.0); CO2, Blood 30 mmol/L (21-32); Calcium, Blood 8.8 mg/dL (8.5-10.1); Chloride, Blood 101 mmol/L (98-108); Creatinine, Blood 1.05 mg/dL (0.40-1.00); Glomerular Filtration Rate >60 (60-); Glucose, Blood 85 mg/dL (70-99); Phosphorus, Blood 4.1 mg/dL (2.5-4.9); Potassium, Blood 4.7 mmol/L (3.5-5.5); Sodium, Blood 136 mmol/L (136-145)
[2017-07-25] MEDS ORDERED: SPIR50 PO (10:26)
[2017-07-25] MEDS ORDERED: TORSE20 PO (10:28)
[2017-07-25] MEDS ORDERED: ALPR.25 PO (10:33)
[2017-07-25] MEDS ORDERED: ACET325 PO (10:34)
[2017-11-30] MEDS ORDERED: Culturelle1 CAP PO (15:00)
[2017-11-30] MEDS ORDERED: CIPR500 PO (15:01)
[2017-11-30] MEDS ORDERED: METR500 PO (15:02)
[2018-01-15] MEDS ORDERED: HYDR1TAB94 PO (14:12)
[2018-01-15] MEDS ORDERED: HYDHCL25 PO (14:32)
[2018-02-25] MEDS ORDERED: ELIQUIS5 MG PO (13:51)
[2018-02-25] MEDS ORDERED: POTCHL10ER (13:53)
== END 2017-07-25 11:14 | disposition home or self-care (01) | DRG 245 ==
LOC: ER 10:32 → MEDS 13:57 → PCU 13:57 → MEDS 15:34 → PCU 17:28 → MEDS 07-17 16:10 → PCU 07-21 16:49 → SURS 07-22 15:21
PROVIDERS: Family Medicine; Internal Medicine; Internal Medicine Cardiovascular Disease; Internal Medicine Critical Care Medicine
PROC: 0JH60PZ Insertion of Cardiac Rhythm Related Device into Chest Subcutaneous Tissue and Fascia, Open Approach (ICD-10-PCS; principal; 2017-07-21)
PROC: 0JH608Z Insertion of Defibrillator Generator into Chest Subcutaneous Tissue and Fascia, Open Approach (ICD-10-PCS; principal; 2017-07-21)
DX: I50.23 Acute on chronic systolic (congestive) heart failure (principal); I27.20 Pulmonary hypertension, unspecified; I42.0 Dilated cardiomyopathy; E88.09 Other disorders of plasma-protein metabolism, not elsewhere classified; R04.2 Hemoptysis; Z68.42 Body mass index [BMI] 45.0-49.9, adult; I47.1 Supraventricular tachycardia; I95.9 Hypotension, unspecified; D50.9 Iron deficiency anemia, unspecified; E66.9 Obesity, unspecified; Z88.0 Allergy status to penicillin; Z87.891 Personal history of nicotine dependence; F15.10 Other stimulant abuse, uncomplicated; G47.33 Obstructive sleep apnea (adult) (pediatric); R60.9 Edema, unspecified
CPT/HCPCS: 33249; 36415; 71046; 80048; 80053; 80069; 81003; 82728; 82947; 83516; 83540; 83550; 83735; 83880; 84443; 84484; 85014; 85018; 85025; 86038; 86256; 87070; 87205; 93005; 93010; 93306; 94640; 94760; 94762; 96365; 96375; 99152; 99153; 99285; C1722; C1895; J1200; J1644; J1940; J1956; J2250; J2405; J2916; J3010; J3370; J3475; J3480; J7030; J7040; Q0163

== ENCOUNTER 2017-07-28 16:42 | Inpatient (IN) | payer OTHER ==
[~2017-07-28] VITALS: Ht 162.6 cm; Wt 121.8 kg
[~2017-07-28 16:42] MED LIST changes: +ACET325 PO; +Flovent 110 MCG12 GM INH
[2017-07-28 17:32] LABS: BASOPHILS ABSOLUTE AUTO 0.06 K/mm3 (0.00-0.23); BASOPHILS PERCENT AUTO 1 % (0-2); EOSINOPHILS ABSOLUTE AUTO 0.05 K/mm3 (0.00-0.68); EOSINOPHILS PERCENT AUTO 1 % (0-6); Hematocrit 33.3 % (33.0-51.0); Hemoglobin 9.4 g/dL (11.5-16.0); IMMATURE GRAN ABSOLUTE AUTO 0.01 K/mm3 (0.00-0.10); IMMATURE GRAN PERCENT AUTO 0 % (0-1); LYMPHOCYTES ABSOLUTE AUTO 1.54 K/mm3 (0.84-5.20); LYMPHOCYTES PERCENT AUTO 34 % (21-46); MONOCYTES ABSOLUTE AUTO 0.52 K/mm3 (0.16-1.47); MONOCYTES PERCENT AUTO 11 % (4-13); Mean Corpuscular HGB 21.2 pg (26.0-34.0); Mean Corpuscular HGB Conc 28.2 g/dL (31.5-36.5); Mean Corpuscular Volume 75 fL (80-100); Mean Platelet Volume 9.9 fL (9.1-12.4); NEUTROPHILS ABSOLUTE AUTO 2.38 K/mm3 (1.96-9.15); NEUTROPHILS PERCENT AUTO 52 % (41-73); NRBC ABSOLUTE 0.03 K/mm3 (0.00-0.02); NRBC Auto 0.7 /100 WBC (0.0-0.2); Platelet Count 330 K/mm3 (150-400); RDW Coefficient Variation 25.4 % (11.7-14.2); RDW Standard Deviation 64.5 fL (35.1-46.3); Red Blood Cell Count 4.43 M/mm3 (3.80-5.20); White Blood Cell Count 4.56 K/mm3 (4.00-11.30)
[2017-07-28 17:50] LABS: Alanine Aminotransfer (ALT/SGP 23 U/L (12-78); Albumin, Blood 2.6 g/dL (3.4-5.0); Albumin/Globulin Ratio 0.6 (0.8-1.8); Alk Phos 109 U/L (50-136); Anion Gap 11 mmol/L (6-16); Aspartate Aminotrans (AST/SGOT 22 U/L (12-37); Bilirubin, Total 1.5 mg/dL (0.1-1.0); Blood Urea Nitrogen 23 mg/dL (8-24); Bun/Creatinine Ratio 20.7 (12.0-20.0); CO2, Blood 29 mmol/L (21-32); Calcium, Blood 8.4 mg/dL (8.5-10.1); Chloride, Blood 99 mmol/L (98-108); Creatinine, Blood 1.11 mg/dL (0.40-1.00); Glomerular Filtration Rate >60 (60-); Glucose, Blood 93 mg/dL (70-99); Potassium, Blood 3.6 mmol/L (3.5-5.5); Sodium, Blood 139 mmol/L (136-145); Total Protein, Blood 6.6 g/dL (6.4-8.2)
[2017-07-28 18:22] LABS: Troponin I <0.015 ng/mL (0.000-0.040)
[2017-07-28] MEDS ORDERED: HYDR1TAB94 PO (21:42)
[2017-07-29 04:52] LABS: BASOPHILS ABSOLUTE AUTO 0.04 K/mm3 (0.00-0.23); BASOPHILS PERCENT AUTO 1 % (0-2); EOSINOPHILS ABSOLUTE AUTO 0.08 K/mm3 (0.00-0.68); EOSINOPHILS PERCENT AUTO 2 % (0-6); Hematocrit 30.3 % (33.0-51.0); Hemoglobin 8.6 g/dL (11.5-16.0); IMMATURE GRAN ABSOLUTE AUTO 0.01 K/mm3 (0.00-0.10); IMMATURE GRAN PERCENT AUTO 0 % (0-1); LYMPHOCYTES PERCENT AUTO 42 % (21-46); MONOCYTES ABSOLUTE AUTO 0.51 K/mm3 (0.16-1.47); MONOCYTES PERCENT AUTO 14 % (4-13); Mean Corpuscular HGB 21.2 pg (26.0-34.0); Mean Corpuscular HGB Conc 28.4 g/dL (31.5-36.5); Mean Corpuscular Volume 75 fL (80-100); Mean Platelet Volume 10.4 fL (9.1-12.4); NEUTROPHILS ABSOLUTE AUTO 1.46 K/mm3 (1.96-9.15); NEUTROPHILS PERCENT AUTO 41 % (41-73); NRBC ABSOLUTE 0.02 K/mm3 (0.00-0.02); NRBC Auto 0.6 /100 WBC (0.0-0.2); Platelet Count 248 K/mm3 (150-400); RDW Coefficient Variation 25.2 % (11.7-14.2); RDW Standard Deviation 64.6 fL (35.1-46.3); Red Blood Cell Count 4.06 M/mm3 (3.80-5.20)
[2017-07-29 05:14] LABS: Bun/Creatinine Ratio 18.8 (12.0-20.0); Calcium, Blood 8.1 mg/dL (8.5-10.1); Creatinine, Blood 1.17 mg/dL (0.40-1.00); Magnesium, Blood 1.8 mg/dL (1.6-2.4); Potassium, Blood 2.9 mmol/L (3.5-5.5)
[2017-07-29 09:01] LABS: Percent Saturation 6.3 % (15.0-50.0)
[2017-07-30 04:46] LABS: Bun/Creatinine Ratio 16.4 (12.0-20.0); Creatinine, Blood 1.28 mg/dL (0.40-1.00); Potassium, Blood 3.2 mmol/L (3.5-5.5)
[2017-07-31 03:43] LABS: Hematocrit 29.5 % (33.0-51.0); Hemoglobin 8.3 g/dL (11.5-16.0); Mean Corpuscular HGB Conc 28.1 g/dL (31.5-36.5); Mean Corpuscular Volume 75 fL (80-100); Mean Platelet Volume 10.5 fL (9.1-12.4); NRBC ABSOLUTE 0.03 K/mm3 (0.00-0.02); NRBC Auto 0.7 /100 WBC (0.0-0.2); Platelet Count 293 K/mm3 (150-400); RDW Coefficient Variation 24.7 % (11.7-14.2); RDW Standard Deviation 63.4 fL (35.1-46.3); Red Blood Cell Count 3.96 M/mm3 (3.80-5.20); White Blood Cell Count 4.51 K/mm3 (4.00-11.30)
[2017-07-31 04:00] LABS: Albumin, Blood 2.3 g/dL (3.4-5.0); Anion Gap 7 mmol/L (6-16); Blood Urea Nitrogen 17 mg/dL (8-24); Bun/Creatinine Ratio 15.9 (12.0-20.0); CO2, Blood 32 mmol/L (21-32); Calcium, Blood 7.9 mg/dL (8.5-10.1); Chloride, Blood 99 mmol/L (98-108); Creatinine, Blood 1.07 mg/dL (0.40-1.00); Glomerular Filtration Rate >60 (60-); Glucose, Blood 96 mg/dL (70-99); Phosphorus, Blood 2.7 mg/dL (2.5-4.9); Potassium, Blood 3.3 mmol/L (3.5-5.5); Sodium, Blood 138 mmol/L (136-145)
== END 2017-07-31 10:25 | disposition home or self-care (01) | DRG 948 ==
LOC: ER 16:42 → MEDS 16:43
PROVIDERS: Emergency Medicine; Internal Medicine
DX: R60.1 Generalized edema (principal); I50.22 Chronic systolic (congestive) heart failure; I42.0 Dilated cardiomyopathy; D50.9 Iron deficiency anemia, unspecified; E87.6 Hypokalemia; F15.11 Other stimulant abuse, in remission; R11.2 Nausea with vomiting, unspecified; F41.9 Anxiety disorder, unspecified; F32.9 Major depressive disorder, single episode, unspecified; Z76.5 Malingerer [conscious simulation]; Z86.711 Personal history of pulmonary embolism; Z88.5 Allergy status to narcotic agent; Z88.0 Allergy status to penicillin; Z87.891 Personal history of nicotine dependence; Z95.810 Presence of automatic (implantable) cardiac defibrillator; Z79.01 Long term (current) use of anticoagulants; Z79.899 Other long term (current) drug therapy
CPT/HCPCS: 36415; 71046; 80048; 80053; 80069; 82728; 83540; 83550; 83690; 83735; 83880; 84484; 85025; 85027; 93005; 93010; 96374; 99285; C9113; J1940; J2001; J2405; J3480; J7050

== ENCOUNTER 2017-09-11 17:35 | Inpatient (IN) | payer OTHER ==
[~2017-09-11] VITALS: Ht 162.6 cm; Wt 103.4 kg
[2017-09-11 18:21] LABS: BASOPHILS ABSOLUTE AUTO 0.03 K/mm3 (0.00-0.23); BASOPHILS PERCENT AUTO 0 % (0-2); EOSINOPHILS ABSOLUTE AUTO 0.06 K/mm3 (0.00-0.68); EOSINOPHILS PERCENT AUTO 1 % (0-6); Hematocrit 35.8 % (33.0-51.0); Hemoglobin 10.1 g/dL (11.5-16.0); IMMATURE GRAN ABSOLUTE AUTO 0.02 K/mm3 (0.00-0.10); IMMATURE GRAN PERCENT AUTO 0 % (0-1); LYMPHOCYTES ABSOLUTE AUTO 1.54 K/mm3 (0.84-5.20); LYMPHOCYTES PERCENT AUTO 19 % (21-46); MONOCYTES PERCENT AUTO 13 % (4-13); Mean Corpuscular HGB 21.3 pg (26.0-34.0); Mean Corpuscular HGB Conc 28.2 g/dL (31.5-36.5); Mean Corpuscular Volume 75 fL (80-100); Mean Platelet Volume 10.4 fL (9.1-12.4); NEUTROPHILS ABSOLUTE AUTO 5.37 K/mm3 (1.96-9.15); NEUTROPHILS PERCENT AUTO 67 % (41-73); NRBC ABSOLUTE 0.03 K/mm3 (0.00-0.02); NRBC Auto 0.4 /100 WBC (0.0-0.2); Platelet Count 297 K/mm3 (150-400); RDW Coefficient Variation 26.6 % (11.7-14.2); RDW Standard Deviation 70.5 fL (35.1-46.3); Red Blood Cell Count 4.75 M/mm3 (3.80-5.20); White Blood Cell Count 8.02 K/mm3 (4.00-11.30)
[2017-09-11 18:43] LABS: Alanine Aminotransfer (ALT/SGP 30 U/L (12-78); Albumin, Blood 2.8 g/dL (3.4-5.0); Albumin/Globulin Ratio 0.7 (0.8-1.8); Alk Phos 120 U/L (50-136); Anion Gap 9 mmol/L (6-16); Aspartate Aminotrans (AST/SGOT 29 U/L (12-37); Bilirubin, Total 2.5 mg/dL (0.1-1.0); Blood Urea Nitrogen 19 mg/dL (8-24); Bun/Creatinine Ratio 21.2 (12.0-20.0); CO2, Blood 27 mmol/L (21-32); Calcium, Blood 7.9 mg/dL (8.5-10.1); Chloride, Blood 100 mmol/L (98-108); Globulin, Blood 3.9 g/dL (2.2-4.0); Glomerular Filtration Rate >60 (60-); Glucose, Blood 140 mg/dL (70-99); Potassium, Blood 2.8 mmol/L (3.5-5.5); Sodium, Blood 136 mmol/L (136-145); Total Protein, Blood 6.7 g/dL (6.4-8.2); Troponin I 0.018 ng/mL (0.000-0.040)
[2017-09-12 05:11] LABS: BASOPHILS ABSOLUTE AUTO 0.05 K/mm3 (0.00-0.23); BASOPHILS PERCENT AUTO 1 % (0-2); EOSINOPHILS ABSOLUTE AUTO 0.07 K/mm3 (0.00-0.68); EOSINOPHILS PERCENT AUTO 1 % (0-6); Hematocrit 36.6 % (33.0-51.0); Hemoglobin 10.2 g/dL (11.5-16.0); IMMATURE GRAN ABSOLUTE AUTO 0.05 K/mm3 (0.00-0.10); IMMATURE GRAN PERCENT AUTO 1 % (0-1); LYMPHOCYTES ABSOLUTE AUTO 1.99 K/mm3 (0.84-5.20); LYMPHOCYTES PERCENT AUTO 21 % (21-46); MONOCYTES ABSOLUTE AUTO 1.24 K/mm3 (0.16-1.47); MONOCYTES PERCENT AUTO 13 % (4-13); Mean Corpuscular HGB 21.6 pg (26.0-34.0); Mean Corpuscular HGB Conc 27.9 g/dL (31.5-36.5); Mean Corpuscular Volume 77 fL (80-100); Mean Platelet Volume 10.1 fL (9.1-12.4); NEUTROPHILS ABSOLUTE AUTO 6.21 K/mm3 (1.96-9.15); NEUTROPHILS PERCENT AUTO 65 % (41-73); NRBC ABSOLUTE 0.07 K/mm3 (0.00-0.02); NRBC Auto 0.7 /100 WBC (0.0-0.2); Platelet Count 303 K/mm3 (150-400); RDW Coefficient Variation 26.7 % (11.7-14.2); RDW Standard Deviation 73.3 fL (35.1-46.3); Red Blood Cell Count 4.73 M/mm3 (3.80-5.20); White Blood Cell Count 9.61 K/mm3 (4.00-11.30)
[2017-09-12 05:35] LABS: Bun/Creatinine Ratio 21.7 (12.0-20.0); Calcium, Blood 7.9 mg/dL (8.5-10.1); Creatinine, Blood 1.15 mg/dL (0.40-1.00); Potassium, Blood 3.4 mmol/L (3.5-5.5)
[2017-09-13 05:15] LABS: Hematocrit 33.5 % (33.0-51.0); Hemoglobin 9.7 g/dL (11.5-16.0); Mean Corpuscular HGB 21.4 pg (26.0-34.0); NRBC ABSOLUTE 0.02 K/mm3 (0.00-0.02); NRBC Auto 0.1 /100 WBC (0.0-0.2); Platelet Count 279 K/mm3 (150-400); RDW Coefficient Variation 25.8 % (11.7-14.2); Red Blood Cell Count 4.54 M/mm3 (3.80-5.20); White Blood Cell Count 13.75 K/mm3 (4.00-11.30)
[2017-09-13 05:20] LABS: Mean Corpuscular Volume 74 fL (80-100); Mean Platelet Volume 10.5 fL (9.1-12.4)
[2017-09-13 05:23] LABS: Albumin, Blood 2.6 g/dL (3.4-5.0); Anion Gap 13 mmol/L (6-16); Blood Urea Nitrogen 38 mg/dL (8-24); Bun/Creatinine Ratio 23.8 (12.0-20.0); CO2, Blood 21 mmol/L (21-32); Calcium, Blood 8.1 mg/dL (8.5-10.1); Chloride, Blood 94 mmol/L (98-108); Glomerular Filtration Rate 40 (60-); Glucose, Blood 85 mg/dL (70-99); Magnesium, Blood 1.6 mg/dL (1.6-2.4); Phosphorus, Blood 5.3 mg/dL (2.5-4.9); Potassium, Blood 4.6 mmol/L (3.5-5.5); Sodium, Blood 128 mmol/L (136-145)
[2017-09-14 05:19] LABS: Hematocrit 33.8 % (33.0-51.0); Hemoglobin 9.7 g/dL (11.5-16.0); Mean Corpuscular HGB 21.9 pg (26.0-34.0); Mean Corpuscular HGB Conc 28.7 g/dL (31.5-36.5); NRBC ABSOLUTE 0.02 K/mm3 (0.00-0.02); NRBC Auto 0.2 /100 WBC (0.0-0.2); Platelet Count 251 K/mm3 (150-400); RDW Coefficient Variation 26.1 % (11.7-14.2); RDW Standard Deviation 69.9 fL (35.1-46.3); Red Blood Cell Count 4.42 M/mm3 (3.80-5.20)
[2017-09-14 05:20] LABS: Mean Corpuscular Volume 77 fL (80-100); Mean Platelet Volume 10.9 fL (9.1-12.4)
[2017-09-14 05:42] LABS: Bun/Creatinine Ratio 28.2 (12.0-20.0); Creatinine, Blood 1.77 mg/dL (0.40-1.00); Potassium, Blood 5.2 mmol/L (3.5-5.5)
[2017-09-14] MEDS ORDERED: CEPH500 PO (13:17)
[2017-09-14] MEDS ORDERED: Oxycodone-Apap1 EAC3 PO (13:19)
== END 2017-09-14 14:09 | disposition home or self-care (01) | DRG 872 ==
LOC: ER 17:35 → MEDS 23:38 → ENPENDDIS 09-14 11:00 → MEDS 09-14 14:09
PROVIDERS: Emergency Medicine; Internal Medicine; Nurse Practitioner Acute Care
DX: A41.9 Sepsis, unspecified organism (principal); L03.221 Cellulitis of neck; E87.1 Hypo-osmolality and hyponatremia; I50.22 Chronic systolic (congestive) heart failure; N17.9 Acute kidney failure, unspecified; I82.621 Acute embolism and thrombosis of deep veins of right upper extremity; E87.6 Hypokalemia; R79.89 Other specified abnormal findings of blood chemistry; Z86.711 Personal history of pulmonary embolism; Z79.01 Long term (current) use of anticoagulants; D50.9 Iron deficiency anemia, unspecified; I88.9 Nonspecific lymphadenitis, unspecified
CPT/HCPCS: 36415; 70360; 70491; 71046; 80048; 80053; 80069; 83735; 83880; 84484; 85025; 85027; 87040; 93005; 93010; 93971; 94640; 94760; 96365; 96366; 96375; 99285; J0690; J1940; J2405; J3010; J3370; J3480; J7030; Q0163; Q9967

== ENCOUNTER 2017-09-24 20:34 | Observation (INO) | payer OTHER ==
[~2017-09-24] VITALS: Ht 162.6 cm; Wt 104.7 kg
[~2017-09-24 20:34] MED LIST changes: +Oxycodone-Apap1 EAC3 PO
[2017-09-24 21:25] LABS: BASOPHILS ABSOLUTE AUTO 0.07 K/mm3 (0.00-0.23); BASOPHILS PERCENT AUTO 1 % (0-2); EOSINOPHILS ABSOLUTE AUTO 0.04 K/mm3 (0.00-0.68); EOSINOPHILS PERCENT AUTO 1 % (0-6); Hematocrit 34.5 % (33.0-51.0); IMMATURE GRAN ABSOLUTE AUTO 0.03 K/mm3 (0.00-0.10); IMMATURE GRAN PERCENT AUTO 0 % (0-1); LYMPHOCYTES ABSOLUTE AUTO 1.61 K/mm3 (0.84-5.20); LYMPHOCYTES PERCENT AUTO 22 % (21-46); MONOCYTES ABSOLUTE AUTO 0.69 K/mm3 (0.16-1.47); MONOCYTES PERCENT AUTO 9 % (4-13); Mean Corpuscular HGB 22.5 pg (26.0-34.0); Mean Corpuscular Volume 78 fL (80-100); NEUTROPHILS ABSOLUTE AUTO 4.93 K/mm3 (1.96-9.15); NEUTROPHILS PERCENT AUTO 67 % (41-73); NRBC ABSOLUTE 0.03 K/mm3 (0.00-0.02); NRBC Auto 0.4 /100 WBC (0.0-0.2); RDW Coefficient Variation 27.8 % (11.7-14.2); RDW Standard Deviation 74.1 fL (35.1-46.3); Red Blood Cell Count 4.45 M/mm3 (3.80-5.20); White Blood Cell Count 7.37 K/mm3 (4.00-11.30)
[2017-09-24 21:32] LABS: Mean Platelet Volume 10.4 fL (9.1-12.4); Platelet Count 215 K/mm3 (150-400)
[2017-09-24 21:50] LABS: Alanine Aminotransfer (ALT/SGP 29 U/L (12-78); Albumin, Blood 2.4 g/dL (3.4-5.0); Albumin/Globulin Ratio 0.5 (0.8-1.8); Alk Phos 107 U/L (50-136); Anion Gap 11 mmol/L (6-16); Aspartate Aminotrans (AST/SGOT 40 U/L (12-37); Bilirubin, Total 3.2 mg/dL (0.1-1.0); Blood Urea Nitrogen 17 mg/dL (8-24); Bun/Creatinine Ratio 21.8 (12.0-20.0); CO2, Blood 32 mmol/L (21-32); Calcium, Blood 8.3 mg/dL (8.5-10.1); Chloride, Blood 93 mmol/L (98-108); Creatinine, Blood 0.78 mg/dL (0.40-1.00); Globulin, Blood 4.6 g/dL (2.2-4.0); Glomerular Filtration Rate >60 (60-); Glucose, Blood 104 mg/dL (70-99); Potassium, Blood 3.3 mmol/L (3.5-5.5); Sodium, Blood 136 mmol/L (136-145); Troponin I <0.015 ng/mL (0.000-0.040)
[2017-09-24 23:31] LABS: Source, Urine Clean Catch
[2017-09-24 23:35] LABS: Bilirubin, Urine Neg (Neg); Blood, Urine Neg (Neg); Glucose Qualitative, Urine Neg (Neg); Ketones, Urine Neg (Neg); Leukocyte Esterase, Urine 1+ (Neg); Nitrite, Urine Neg (Neg); Protein, Urine 2+ (Neg); Urobilinogen, Urine NORM (Normal)
[2017-09-24 23:36] LABS: Appearance, Urine Clear (Clear); Color, Urine Yellow (P-Yellow)
[2017-09-24 23:44] LABS: Bacteria Few /hpf; Red Blood Cells, Urine Not Seen /hpf (0-2); Squamous Epithelial Cells Mod /hpf (Few)
[2017-09-24 23:52] LABS: U Amphetamine Screen Not Detected; U Barbituate Screen Not Detected; U Benzodiazapine Screen Not Detected; U Buprenorphine Screen Not Detected; U Cannabinoids Screen Not Detected; U Cocaine Screen Not Detected; U Methadone Screen Not Detected; U Methamphetamine Screen Not Detected; U Opiates Screen Not Detected; U Oxycodone Screen Not Detected; U Phencyclidine Screen Not Detected; U Propoxyphene Screen Not Detected
[2017-09-25 03:22] LABS: BASOPHILS ABSOLUTE AUTO 0.07 K/mm3 (0.00-0.23); BASOPHILS PERCENT AUTO 1 % (0-2); EOSINOPHILS ABSOLUTE AUTO 0.02 K/mm3 (0.00-0.68); EOSINOPHILS PERCENT AUTO 0 % (0-6); Hematocrit 34.3 % (33.0-51.0); Hemoglobin 9.8 g/dL (11.5-16.0); IMMATURE GRAN ABSOLUTE AUTO 0.02 K/mm3 (0.00-0.10); IMMATURE GRAN PERCENT AUTO 0 % (0-1); LYMPHOCYTES ABSOLUTE AUTO 1.51 K/mm3 (0.84-5.20); LYMPHOCYTES PERCENT AUTO 20 % (21-46); MONOCYTES ABSOLUTE AUTO 0.71 K/mm3 (0.16-1.47); MONOCYTES PERCENT AUTO 10 % (4-13); Mean Corpuscular HGB 22.4 pg (26.0-34.0); Mean Corpuscular HGB Conc 28.6 g/dL (31.5-36.5); Mean Corpuscular Volume 79 fL (80-100); Mean Platelet Volume 10.5 fL (9.1-12.4); NEUTROPHILS ABSOLUTE AUTO 5.08 K/mm3 (1.96-9.15); NEUTROPHILS PERCENT AUTO 69 % (41-73); NRBC ABSOLUTE 0.02 K/mm3 (0.00-0.02); NRBC Auto 0.3 /100 WBC (0.0-0.2); Platelet Count 368 K/mm3 (150-400); RDW Coefficient Variation 27.9 % (11.7-14.2); RDW Standard Deviation 74.9 fL (35.1-46.3); Red Blood Cell Count 4.37 M/mm3 (3.80-5.20); White Blood Cell Count 7.41 K/mm3 (4.00-11.30)
[2017-09-25 03:38] LABS: Anion Gap 13 mmol/L (6-16); Blood Urea Nitrogen 19 mg/dL (8-24); Bun/Creatinine Ratio 19.8 (12.0-20.0); CO2, Blood 30 mmol/L (21-32); Calcium, Blood 8.2 mg/dL (8.5-10.1); Chloride, Blood 92 mmol/L (98-108); Creatinine, Blood 0.96 mg/dL (0.40-1.00); Glomerular Filtration Rate >60 (60-); Glucose, Blood 134 mg/dL (70-99); Potassium, Blood 3.3 mmol/L (3.5-5.5); Sodium, Blood 135 mmol/L (136-145)
[2017-09-25 06:03] LABS: Troponin I <0.015 ng/mL (0.000-0.040)
[2017-09-26 05:26] LABS: BASOPHILS ABSOLUTE AUTO 0.11 K/mm3 (0.00-0.23); BASOPHILS PERCENT AUTO 2 % (0-2); EOSINOPHILS ABSOLUTE AUTO 0.13 K/mm3 (0.00-0.68); EOSINOPHILS PERCENT AUTO 2 % (0-6); Hematocrit 36.4 % (33.0-51.0); Hemoglobin 10.1 g/dL (11.5-16.0); IMMATURE GRAN ABSOLUTE AUTO 0.01 K/mm3 (0.00-0.10); IMMATURE GRAN PERCENT AUTO 0 % (0-1); LYMPHOCYTES ABSOLUTE AUTO 1.68 K/mm3 (0.84-5.20); LYMPHOCYTES PERCENT AUTO 27 % (21-46); MONOCYTES ABSOLUTE AUTO 0.49 K/mm3 (0.16-1.47); MONOCYTES PERCENT AUTO 8 % (4-13); Mean Corpuscular HGB 22.5 pg (26.0-34.0); Mean Corpuscular HGB Conc 27.7 g/dL (31.5-36.5); Mean Corpuscular Volume 81 fL (80-100); Mean Platelet Volume 10.3 fL (9.1-12.4); NEUTROPHILS ABSOLUTE AUTO 3.76 K/mm3 (1.96-9.15); NEUTROPHILS PERCENT AUTO 61 % (41-73); Platelet Count 338 K/mm3 (150-400); RDW Coefficient Variation 27.5 % (11.7-14.2); RDW Standard Deviation 79.3 fL (35.1-46.3); Red Blood Cell Count 4.48 M/mm3 (3.80-5.20); White Blood Cell Count 6.18 K/mm3 (4.00-11.30)
[2017-09-26 05:42] LABS: Albumin, Blood 2.4 g/dL (3.4-5.0); Albumin/Globulin Ratio 0.5 (0.8-1.8); Bilirubin, Total 3.3 mg/dL (0.1-1.0); Calcium, Blood 8.2 mg/dL (8.5-10.1); Creatinine, Blood 1.62 mg/dL (0.40-1.00); Globulin, Blood 4.5 g/dL (2.2-4.0); Potassium, Blood 3.1 mmol/L (3.5-5.5); Total Protein, Blood 6.9 g/dL (6.4-8.2)
[2017-09-26 05:44] LABS: Percent Saturation 8.2 % (15.0-50.0)
[2017-09-26] MEDS ORDERED: OXYC5 PO (11:57)
[2017-09-26] MEDS ORDERED: ALPR.25 PO (11:57)
[2017-09-26] MEDS ORDERED: XARELTO20 MG PO (11:58)
== END 2017-09-26 12:55 | disposition home or self-care (01) ==
LOC: ER 20:34 → MEDS 20:35
PROVIDERS: Emergency Medicine; Internal Medicine; Nurse Practitioner Acute Care
DX: R07.9 Chest pain, unspecified (principal); I50.22 Chronic systolic (congestive) heart failure; I42.0 Dilated cardiomyopathy; L83 Acanthosis nigricans; D50.9 Iron deficiency anemia, unspecified; E86.0 Dehydration; F41.9 Anxiety disorder, unspecified; F32.9 Major depressive disorder, single episode, unspecified; R50.9 Fever, unspecified; E83.51 Hypocalcemia; E87.8 Other disorders of electrolyte and fluid balance, not elsewhere classified; R10.9 Unspecified abdominal pain; Z86.711 Personal history of pulmonary embolism; Z95.810 Presence of automatic (implantable) cardiac defibrillator; Z88.0 Allergy status to penicillin; Z88.8 Allergy status to other drugs, medicaments and biological substances; Z79.899 Other long term (current) drug therapy; Z87.891 Personal history of nicotine dependence
CPT/HCPCS: 36415; 71046; 80048; 80053; 81001; 82728; 83036; 83540; 83550; 83605; 83880; 84484; 85025; 87086; 93005; 93010; 96374; 96375; 96376; 99285; G0378; J0696; J2405; J7030

== ENCOUNTER 2017-10-06 19:44 | Emergency (ER) | payer OTHER ==
[~2017-10-06] VITALS: Ht 160 cm; Wt 104.3 kg
[~2017-10-06 19:44] MED LIST changes: +OXYC5 PO
[2017-10-06 20:07] LABS: BASOPHILS ABSOLUTE AUTO 0.07 K/mm3 (0.00-0.23); BASOPHILS PERCENT AUTO 1 % (0-2); EOSINOPHILS ABSOLUTE AUTO 0.14 K/mm3 (0.00-0.68); EOSINOPHILS PERCENT AUTO 2 % (0-6); Hematocrit 35.7 % (33.0-51.0); Hemoglobin 10.4 g/dL (11.5-16.0); IMMATURE GRAN ABSOLUTE AUTO 0.01 K/mm3 (0.00-0.10); IMMATURE GRAN PERCENT AUTO 0 % (0-1); LYMPHOCYTES ABSOLUTE AUTO 1.79 K/mm3 (0.84-5.20); LYMPHOCYTES PERCENT AUTO 28 % (21-46); MONOCYTES ABSOLUTE AUTO 0.69 K/mm3 (0.16-1.47); MONOCYTES PERCENT AUTO 11 % (4-13); Mean Corpuscular HGB Conc 29.1 g/dL (31.5-36.5); Mean Corpuscular Volume 79 fL (80-100); NEUTROPHILS ABSOLUTE AUTO 3.64 K/mm3 (1.96-9.15); NEUTROPHILS PERCENT AUTO 57 % (41-73); Platelet Count 356 K/mm3 (150-400); RDW Coefficient Variation 26.8 % (11.7-14.2); Red Blood Cell Count 4.53 M/mm3 (3.80-5.20); White Blood Cell Count 6.34 K/mm3 (4.00-11.30)
[2017-10-06 20:26] LABS: Alanine Aminotransfer (ALT/SGP 41 U/L (12-78); Albumin, Blood 2.8 g/dL (3.4-5.0); Albumin/Globulin Ratio 0.7 (0.8-1.8); Alk Phos 137 U/L (50-136); Anion Gap 8 mmol/L (6-16); Aspartate Aminotrans (AST/SGOT 42 U/L (12-37); Bilirubin, Total 1.6 mg/dL (0.1-1.0); Blood Urea Nitrogen 19 mg/dL (8-24); Bun/Creatinine Ratio 26.1 (12.0-20.0); CO2, Blood 31 mmol/L (21-32); Chloride, Blood 99 mmol/L (98-108); Creatinine, Blood 0.73 mg/dL (0.40-1.00); Globulin, Blood 4.1 g/dL (2.2-4.0); Glomerular Filtration Rate >60 (60-); Glucose, Blood 124 mg/dL (70-99); Sodium, Blood 138 mmol/L (136-145); Total Protein, Blood 6.9 g/dL (6.4-8.2); Troponin I <0.015 ng/mL (0.000-0.040)
[2017-10-06] MEDS ORDERED: CARV6.25 PO (22:12)
== END 2017-10-06 23:49 | disposition home or self-care (01) ==
LOC: ER 19:44
PROVIDERS: Physician Assistant
DX: I50.22 Chronic systolic (congestive) heart failure (principal); D64.9 Anemia, unspecified; E87.6 Hypokalemia; Z87.891 Personal history of nicotine dependence
CPT/HCPCS: 36415; 71046; 80053; 83880; 84484; 85025; 93005; 93010; 96374; 99283; J1940

== ENCOUNTER 2017-10-20 13:11 | Emergency (ER) | payer OTHER ==
[~2017-10-20] VITALS: Ht 160 cm; Wt 104.3 kg
[2017-10-20] MEDS ORDERED: LOSA25 PO (13:24)
== END 2017-10-20 14:48 | disposition home or self-care (01) ==
LOC: ER 13:11
DX: S20.01XA Contusion of right breast, initial encounter (principal); S20.219A Contusion of unspecified front wall of thorax, initial encounter; I42.9 Cardiomyopathy, unspecified; I50.9 Heart failure, unspecified; Z88.0 Allergy status to penicillin; Z88.8 Allergy status to other drugs, medicaments and biological substances; Z79.899 Other long term (current) drug therapy; Z87.891 Personal history of nicotine dependence; Z95.810 Presence of automatic (implantable) cardiac defibrillator; W01.0XXA Fall on same level from slipping, tripping and stumbling without subsequent striking against object, initial encounter
CPT/HCPCS: 71046; 93005; 93010; 99283

== ENCOUNTER 2020-06-06 10:53 | Emergency (ER) | payer OTHER ==
[~2020-06-06] VITALS: Ht 165.1 cm; Wt 104.3 kg
[~2020-06-06 10:53] MED LIST changes: +Culturelle1 CAP PO; +ELIQUIS5 MG PO; +HYDHCL25 PO; +METR500 PO; +POTCHL10ER
[2020-06-06 11:44] LABS: BASOPHILS ABSOLUTE AUTO 0.11 K/mm3 (0.00-0.23); BASOPHILS PERCENT AUTO 1 % (0-2); EOSINOPHILS ABSOLUTE AUTO 0.04 K/mm3 (0.00-0.68); EOSINOPHILS PERCENT AUTO 1 % (0-6); Hematocrit 48.8 % (33.0-51.0); Hemoglobin 14.8 g/dL (11.5-16.0); IMMATURE GRAN ABSOLUTE AUTO 0.01 K/mm3 (0.00-0.10); IMMATURE GRAN PERCENT AUTO 0 % (0-1); LYMPHOCYTES ABSOLUTE AUTO 2.05 K/mm3 (0.84-5.20); LYMPHOCYTES PERCENT AUTO 27 % (21-46); MONOCYTES ABSOLUTE AUTO 0.64 K/mm3 (0.16-1.47); MONOCYTES PERCENT AUTO 8 % (4-13); Mean Corpuscular HGB 26.5 pg (26.0-34.0); Mean Corpuscular HGB Conc 30.3 g/dL (31.5-36.5); Mean Corpuscular Volume 87 fL (80-100); Mean Platelet Volume 10.2 fL (9.1-12.4); NEUTROPHILS ABSOLUTE AUTO 4.77 K/mm3 (1.96-9.15); NEUTROPHILS PERCENT AUTO 63 % (41-73); Platelet Count 367 K/mm3 (150-400); RDW Coefficient Variation 16.2 % (11.7-14.2); RDW Standard Deviation 51.8 fL (35.1-46.3); Red Blood Cell Count 5.59 M/mm3 (3.80-5.20); White Blood Cell Count 7.62 K/mm3 (4.00-11.30)
[2020-06-06 11:50] LABS: Alanine Aminotransfer (ALT/SGP 39 U/L (12-78); Albumin/Globulin Ratio 0.8 (0.8-1.8); Alk Phos 98 U/L (50-136); Anion Gap 9 mmol/L (6-16); Aspartate Aminotrans (AST/SGOT 23 U/L (12-37); Bilirubin, Total 2.1 mg/dL (0.1-1.0); Blood Urea Nitrogen 19 mg/dL (8-24); Bun/Creatinine Ratio 23.2 (12.0-20.0); CO2, Blood 27 mmol/L (21-32); Calcium, Blood 8.8 mg/dL (8.5-10.1); Chloride, Blood 101 mmol/L (98-108); Creatinine, Blood 0.82 mg/dL (0.40-1.00); Globulin, Blood 3.8 g/dL (2.2-4.0); Glomerular Filtration Rate >60 (60-); Glucose, Blood 130 mg/dL (70-99); Potassium, Blood 3.6 mmol/L (3.5-5.5); Sodium, Blood 137 mmol/L (136-145); Total Protein, Blood 6.8 g/dL (6.4-8.2)
[2020-06-06 11:58] LABS: International Normalized Ratio 1.65; Prothrombin Time Results 17.2 Sec (9.7-11.5)
[2020-06-06] MEDS ORDERED: SPIR25 PO (21:21)
[2020-06-06] MEDS ORDERED: TORSE20 PO (21:22)
[2020-06-06] MEDS ORDERED: TORS10 PO (21:22)
[2020-06-06] MEDS ORDERED: LOSA25 PO (21:22)
[2020-06-06] MEDS ORDERED: ERGO50000 PO (21:23)
[2020-06-06] MEDS ORDERED: ALBU90OI INH (23:49)
== END 2020-06-06 12:35 | disposition left against medical advice (07) ==
LOC: ER 10:53
PROVIDERS: Physician Assistant
DX: R11.2 Nausea with vomiting, unspecified (principal); Z53.21 Procedure and treatment not carried out due to patient leaving prior to being seen by health care provider; Z79.899 Other long term (current) drug therapy; Z79.01 Long term (current) use of anticoagulants
CPT/HCPCS: 36415; 80053; 85025; 85610; 93005; 93010; 99284-25

== ENCOUNTER 2020-06-06 21:07 | Emergency (ER) | payer OTHER ==
[~2020-06-06] VITALS: Ht 165.1 cm; Wt 104.3 kg
[2020-06-06] MEDS ORDERED: SPIR25 PO (21:21)
[2020-06-06] MEDS ORDERED: LOSA25 PO (21:22)
[2020-06-06] MEDS ORDERED: TORS10 PO (21:22)
[2020-06-06] MEDS ORDERED: TORSE20 PO (21:22)
[2020-06-06] MEDS ORDERED: ERGO50000 PO (21:23)
[2020-06-06 22:36] LABS: BASOPHILS ABSOLUTE AUTO 0.08 K/mm3 (0.00-0.23); BASOPHILS PERCENT AUTO 1 % (0-2); EOSINOPHILS ABSOLUTE AUTO 0.07 K/mm3 (0.00-0.68); EOSINOPHILS PERCENT AUTO 1 % (0-6); Hematocrit 47.2 % (33.0-51.0); Hemoglobin 14.2 g/dL (11.5-16.0); IMMATURE GRAN ABSOLUTE AUTO 0.02 K/mm3 (0.00-0.10); IMMATURE GRAN PERCENT AUTO 0 % (0-1); LYMPHOCYTES PERCENT AUTO 21 % (21-46); MONOCYTES ABSOLUTE AUTO 0.74 K/mm3 (0.16-1.47); MONOCYTES PERCENT AUTO 9 % (4-13); Mean Corpuscular HGB 26.2 pg (26.0-34.0); Mean Corpuscular HGB Conc 30.1 g/dL (31.5-36.5); Mean Corpuscular Volume 87 fL (80-100); Mean Platelet Volume 10.1 fL (9.1-12.4); NEUTROPHILS ABSOLUTE AUTO 5.49 K/mm3 (1.96-9.15); NEUTROPHILS PERCENT AUTO 68 % (41-73); Platelet Count 336 K/mm3 (150-400); RDW Coefficient Variation 16.3 % (11.7-14.2); RDW Standard Deviation 51.7 fL (35.1-46.3); Red Blood Cell Count 5.41 M/mm3 (3.80-5.20)
[2020-06-06 22:56] LABS: Alanine Aminotransfer (ALT/SGP 40 U/L (12-78); Albumin, Blood 2.9 g/dL (3.4-5.0); Albumin/Globulin Ratio 0.8 (0.8-1.8); Alk Phos 92 U/L (50-136); Anion Gap 8 mmol/L (6-16); Aspartate Aminotrans (AST/SGOT 39 U/L (12-37); Blood Urea Nitrogen 20 mg/dL (8-24); Bun/Creatinine Ratio 24.7 (12.0-20.0); CO2, Blood 30 mmol/L (21-32); Calcium, Blood 8.8 mg/dL (8.5-10.1); Chloride, Blood 100 mmol/L (98-108); Creatinine, Blood 0.81 mg/dL (0.40-1.00); Globulin, Blood 3.6 g/dL (2.2-4.0); Glomerular Filtration Rate >60 (60-); Glucose, Blood 131 mg/dL (70-99); Potassium, Blood 3.8 mmol/L (3.5-5.5); Sodium, Blood 138 mmol/L (136-145); Total Protein, Blood 6.5 g/dL (6.4-8.2); Troponin I <0.015 ng/mL (0.000-0.040)
[2020-06-06] MEDS ORDERED: ALBU90OI INH (23:49)
== END 2020-06-07 00:07 | disposition home or self-care (01) ==
LOC: ER 21:07
PROVIDERS: Emergency Medicine
DX: I50.9 Heart failure, unspecified (principal); J40 Bronchitis, not specified as acute or chronic; Z88.0 Allergy status to penicillin; Z79.01 Long term (current) use of anticoagulants; Z87.891 Personal history of nicotine dependence; Z79.899 Other long term (current) drug therapy
CPT/HCPCS: 36415; 71045; 80053; 83880; 84484; 85025; 93005; 93010; 94640; 96374; 99285-25; J1940

== ENCOUNTER 2020-06-07 09:38 | Emergency (ER) | payer OTHER ==
[~2020-06-07] VITALS: Ht 165.1 cm; Wt 104.3 kg
[~2020-06-07 09:38] MED LIST changes: +ERGO50000 PO
[2020-06-07 11:16] LABS: BASOPHILS ABSOLUTE AUTO 0.09 K/mm3 (0.00-0.23); BASOPHILS PERCENT AUTO 1 % (0-2); EOSINOPHILS ABSOLUTE AUTO 0.09 K/mm3 (0.00-0.68); EOSINOPHILS PERCENT AUTO 1 % (0-6); Hematocrit 47.1 % (33.0-51.0); Hemoglobin 14.6 g/dL (11.5-16.0); IMMATURE GRAN ABSOLUTE AUTO 0.02 K/mm3 (0.00-0.10); IMMATURE GRAN PERCENT AUTO 0 % (0-1); LYMPHOCYTES ABSOLUTE AUTO 2.29 K/mm3 (0.84-5.20); LYMPHOCYTES PERCENT AUTO 26 % (21-46); MONOCYTES ABSOLUTE AUTO 1.04 K/mm3 (0.16-1.47); MONOCYTES PERCENT AUTO 12 % (4-13); Mean Corpuscular HGB 26.8 pg (26.0-34.0); Mean Corpuscular Volume 86 fL (80-100); NEUTROPHILS PERCENT AUTO 60 % (41-73); Platelet Count 358 K/mm3 (150-400); RDW Coefficient Variation 16.6 % (11.7-14.2); RDW Standard Deviation 50.7 fL (35.1-46.3); Red Blood Cell Count 5.45 M/mm3 (3.80-5.20); White Blood Cell Count 8.83 K/mm3 (4.00-11.30)
[2020-06-07 11:38] LABS: Alanine Aminotransfer (ALT/SGP 39 U/L (12-78); Albumin, Blood 2.9 g/dL (3.4-5.0); Albumin/Globulin Ratio 0.7 (0.8-1.8); Alk Phos 98 U/L (50-136); Anion Gap 9 mmol/L (6-16); Aspartate Aminotrans (AST/SGOT 29 U/L (12-37); Bilirubin, Total 1.8 mg/dL (0.1-1.0); Blood Urea Nitrogen 19 mg/dL (8-24); Bun/Creatinine Ratio 22.4 (12.0-20.0); CO2, Blood 27 mmol/L (21-32); Calcium, Blood 8.8 mg/dL (8.5-10.1); Chloride, Blood 100 mmol/L (98-108); Creatinine, Blood 0.85 mg/dL (0.40-1.00); Globulin, Blood 3.9 g/dL (2.2-4.0); Glomerular Filtration Rate >60 (60-); Glucose, Blood 145 mg/dL (70-99); Sodium, Blood 136 mmol/L (136-145); Total Protein, Blood 6.8 g/dL (6.4-8.2); Troponin I <0.015 ng/mL (0.000-0.040)
== END 2020-06-07 12:39 | disposition home or self-care (01) ==
LOC: ER 09:38
PROVIDERS: Emergency Medicine
DX: I50.9 Heart failure, unspecified (principal); Z95.810 Presence of automatic (implantable) cardiac defibrillator; Z79.01 Long term (current) use of anticoagulants; Z79.899 Other long term (current) drug therapy; Z87.891 Personal history of nicotine dependence; Z88.0 Allergy status to penicillin; Z88.5 Allergy status to narcotic agent
CPT/HCPCS: 36415; 71046; 80053; 83880; 84484; 85025; 93005; 93010; 96374; 96375; 99285-25; J1940; J2405

== ENCOUNTER 2021-10-16 09:12 | Emergency (ER) | payer OTHER ==
[~2021-10-16] VITALS: Ht 162.6 cm; Wt 104.3 kg
[2021-10-16 09:38] LABS: Source, Urine Clean Catch
[2021-10-16 09:48] LABS: Bilirubin, Urine Neg (Neg); Blood, Urine Neg (Neg); Glucose Qualitative, Urine Neg (Neg); Ketones, Urine Neg (Neg); Leukocyte Esterase, Urine Neg (Neg); Nitrite, Urine Neg (Neg); Protein, Urine Neg (Neg); Urobilinogen, Urine NORM (Normal)
[2021-10-16 09:49] LABS: Appearance, Urine Clear (Clear); Color, Urine Yellow (P-Yellow)
[2021-10-16 09:51] LABS: BASOPHILS ABSOLUTE AUTO 0.08 K/mm3 (0.00-0.23); BASOPHILS PERCENT AUTO 1 % (0-2); EOSINOPHILS ABSOLUTE AUTO 0.17 K/mm3 (0.00-0.68); EOSINOPHILS PERCENT AUTO 2 % (0-6); Hematocrit 40.2 % (33.0-51.0); Hemoglobin 13.4 g/dL (11.5-16.0); IMMATURE GRAN ABSOLUTE AUTO 0.06 K/mm3 (0.00-0.10); IMMATURE GRAN PERCENT AUTO 1 % (0-1); LYMPHOCYTES ABSOLUTE AUTO 1.75 K/mm3 (0.84-5.20); LYMPHOCYTES PERCENT AUTO 16 % (21-46); MONOCYTES ABSOLUTE AUTO 0.77 K/mm3 (0.16-1.47); MONOCYTES PERCENT AUTO 7 % (4-13); Mean Corpuscular HGB 30.8 pg (26.0-34.0); Mean Corpuscular HGB Conc 33.3 g/dL (31.5-36.5); Mean Corpuscular Volume 92 fL (80-100); Mean Platelet Volume 10.1 fL (9.1-12.4); NEUTROPHILS ABSOLUTE AUTO 7.83 K/mm3 (1.96-9.15); NEUTROPHILS PERCENT AUTO 73 % (41-73); NRBC ABSOLUTE 0.05 K/mm3 (0.00-0.02); NRBC Auto 0.5 /100 WBC (0.0-0.2); Platelet Count 397 K/mm3 (150-400); RDW Coefficient Variation 15.2 % (11.7-14.2); RDW Standard Deviation 44.4 fL (35.1-46.3); Red Blood Cell Count 4.35 M/mm3 (3.80-5.20); White Blood Cell Count 10.66 K/mm3 (4.00-11.30)
[2021-10-16 10:26] LABS: Albumin, Blood 3.3 g/dL (3.4-5.0); Albumin/Globulin Ratio 0.8 (0.8-1.8); Bilirubin, Total 1.1 mg/dL (0.1-1.0); Creatinine, Blood 0.77 mg/dL (0.40-1.00); Potassium, Blood 3.9 mmol/L (3.5-5.5); Total Protein, Blood 7.3 g/dL (6.4-8.2)
== END 2021-10-16 11:55 | disposition home or self-care (01) ==
LOC: ER 09:12
PROVIDERS: Physician Assistant
DX: R10.31 Right lower quadrant pain (principal); R10.11 Right upper quadrant pain; I50.9 Heart failure, unspecified; F15.11 Other stimulant abuse, in remission; Z86.711 Personal history of pulmonary embolism; Z87.891 Personal history of nicotine dependence; Z95.810 Presence of automatic (implantable) cardiac defibrillator; Z79.899 Other long term (current) drug therapy; Z79.01 Long term (current) use of anticoagulants
CPT/HCPCS: 36415; 74177; 80053; 81003; 83690; 84703; 85025; A9270; J2405; J3010; Q9967

== ENCOUNTER 2021-10-21 13:24 | Inpatient (IN) | payer OTHER ==
[~2021-10-21] VITALS: Ht 162.6 cm; Wt 142.2 kg
[2021-10-21 13:57] LABS: BASOPHILS ABSOLUTE AUTO 0.09 K/mm3 (0.00-0.23); BASOPHILS PERCENT AUTO 1 % (0-2); EOSINOPHILS ABSOLUTE AUTO 0.26 K/mm3 (0.00-0.68); EOSINOPHILS PERCENT AUTO 3 % (0-6); IMMATURE GRAN ABSOLUTE AUTO 0.06 K/mm3 (0.00-0.10); IMMATURE GRAN PERCENT AUTO 1 % (0-1); LYMPHOCYTES ABSOLUTE AUTO 2.09 K/mm3 (0.84-5.20); LYMPHOCYTES PERCENT AUTO 22 % (21-46); MONOCYTES ABSOLUTE AUTO 0.83 K/mm3 (0.16-1.47); MONOCYTES PERCENT AUTO 9 % (4-13); Mean Corpuscular HGB 30.7 pg (26.0-34.0); Mean Corpuscular HGB Conc 32.5 g/dL (31.5-36.5); Mean Corpuscular Volume 94 fL (80-100); Mean Platelet Volume 9.9 fL (9.1-12.4); NEUTROPHILS ABSOLUTE AUTO 6.34 K/mm3 (1.96-9.15); NEUTROPHILS PERCENT AUTO 66 % (41-73); NRBC ABSOLUTE 0.13 K/mm3 (0.00-0.02); NRBC Auto 1.3 /100 WBC (0.0-0.2); Platelet Count 366 K/mm3 (150-400); RDW Coefficient Variation 15.9 % (11.7-14.2); RDW Standard Deviation 51.8 fL (35.1-46.3); Red Blood Cell Count 4.24 M/mm3 (3.80-5.20); White Blood Cell Count 9.67 K/mm3 (4.00-11.30)
[2021-10-21 14:19] LABS: Albumin, Blood 3.3 g/dL (3.4-5.0); Albumin/Globulin Ratio 0.9 (0.8-1.8); Bilirubin, Total 1.5 mg/dL (0.1-1.0); Calcium, Blood 8.8 mg/dL (8.5-10.1); Creatinine, Blood 0.77 mg/dL (0.40-1.00); Globulin, Blood 3.8 g/dL (2.2-4.0); Potassium, Blood 3.8 mmol/L (3.5-5.5); Total Protein, Blood 7.1 g/dL (6.4-8.2)
[2021-10-21] MEDS ORDERED: Children's Clari5 MG PO (16:40)
[2021-10-21] MEDS ORDERED: METF500 PO (16:41)
[2021-10-21 17:00] LABS: U Amphetamine Screen DETECTED; U Barbituate Screen Not Detected; U Benzodiazapine Screen Not Detected; U Buprenorphine Screen Not Detected; U Cannabinoids Screen DETECTED; U Cocaine Screen Not Detected; U Methadone Screen Not Detected; U Methamphetamine Screen DETECTED; U Opiates Screen Not Detected; U Oxycodone Screen Not Detected; U Phencyclidine Screen Not Detected; U Propoxyphene Screen Not Detected
[2021-10-21 17:27] LABS: CPK Creatine Kinase 80 U/L (26-193)
--- NOTE | 2021-10-21 19:02 | NUR ---
PT ARRIVED IN THE UNIT AT APPROX 1800 ARRIVED VIA GURNEY AMBULATED TO TRANSFER TO UNIT BED, ALERT AND ORIENTED X4. INDEPENDENT. PT SETTLED IN THE ROOM DEMANDED FOOD AND WATER UPON ARRIVAL. VITALS HRR ST 120'S, SATS ABOVE 95% ON RA, BP SYSTOLIC 110'S, AFEBRILE. DENIES CHEST PAIN BUT HAS SOME MILD PRESSURE. PT REQUESTED TO GET RESTED IN THE ROOM, PT ORIENTED TO ROOM AND UNIT, CALL LIGHTS IN REACH WILL REPORT TO ONCOMING SHIFT
[2021-10-22 02:21] LABS: BASOPHILS ABSOLUTE AUTO 0.11 K/mm3 (0.00-0.23); BASOPHILS PERCENT AUTO 1 % (0-2); EOSINOPHILS ABSOLUTE AUTO 0.12 K/mm3 (0.00-0.68); EOSINOPHILS PERCENT AUTO 1 % (0-6); Hematocrit 39.4 % (33.0-51.0); Hemoglobin 12.6 g/dL (11.5-16.0); IMMATURE GRAN ABSOLUTE AUTO 0.04 K/mm3 (0.00-0.10); IMMATURE GRAN PERCENT AUTO 0 % (0-1); LYMPHOCYTES ABSOLUTE AUTO 2.47 K/mm3 (0.84-5.20); LYMPHOCYTES PERCENT AUTO 24 % (21-46); MONOCYTES PERCENT AUTO 10 % (4-13); Mean Corpuscular HGB 30.7 pg (26.0-34.0); Mean Corpuscular Volume 96 fL (80-100); Mean Platelet Volume 9.6 fL (9.1-12.4); NEUTROPHILS PERCENT AUTO 63 % (41-73); Platelet Count 364 K/mm3 (150-400); RDW Coefficient Variation 16.1 % (11.7-14.2); RDW Standard Deviation 52.3 fL (35.1-46.3); Red Blood Cell Count 4.11 M/mm3 (3.80-5.20); White Blood Cell Count 10.24 K/mm3 (4.00-11.30)
[2021-10-22 02:48] LABS: Albumin, Blood 3.3 g/dL (3.4-5.0); Albumin/Globulin Ratio 0.9 (0.8-1.8); Bilirubin, Total 1.5 mg/dL (0.1-1.0); Bun/Creatinine Ratio 22.8 (12.0-20.0); Calcium, Blood 8.6 mg/dL (8.5-10.1); Creatinine, Blood 0.92 mg/dL (0.40-1.00); Globulin, Blood 3.6 g/dL (2.2-4.0); Potassium, Blood 3.5 mmol/L (3.5-5.5); Total Protein, Blood 6.9 g/dL (6.4-8.2)
--- NOTE | 2021-10-22 05:17 | NUR ---
SHIFT SUMMARY AXO. IN SR. ON RA. VSS. HAS BEEN UP TO VOID MULTIPLE TIMES THIS SHIFT. CONTINENT. PATIEMNTS MAJOR COMPLAINT HAS BEEN PERIODIC CHEST/THROAT TIGHTNESS THAT SEEMS TO COINCIDE WITH : A COUGHING FIT, OR WAKING UP SUDDENLY DUE TO MULTIPLE REASONS. PO ATIVA ORDERED X1 TO SOME EFFECT AMD COUGH MEDICINE ORDERED Q4P TO GREAT EFFECT FOR THE PATIENT ON TOP OF THE ADMINISTERED BREATHING TREATMENT. DESPITE PT COMPLAINING THROAT/CHEST TIGHTNESS, LUNG SOUNDS CLEAR AND NO STRIDOR NOTED TO UPPER RESPIRATORY TRACT. PT ADMITS THERE MAY BE AN ANXIETY ASPECT TO THIS BUT STAFF IS CONTINUING TO MONITOR FOR RESP/CARDIAC ETIOLOGY. ASIDE FROM THIS, PT SNACKING T/O NIGHT INTERMITTENTLY BETWEEN SLEEPING. PT VERY COOPERATIVE WITH CARE. OTHERWISE, HAS BEEN USING CALL LIGHT APPROPRIATELY BUT IS INDEPENDENT IN ROOM.
--- NOTE | 2021-10-22 08:50 | NUR ---
AM NOTE: PATIENT ALERT AND ORIENTED X4. VERY TIRED AND SLEEPY THIS AM. PERRLA. DENIES NUMBNESS/TINGLING. ABLE TO MOVE SELF AROUND IN BED. DENIES PAINS. ON ROOM AIR SATING ABOVE 94%. OCCASIONAL COUGHING FITS. SLIGHT EXPIRATORY WHEEZE HEARD IN UPPER LOBES. TELE SHOWING SINUS TACH WITH HR 110-120'S. DENIES CHEST PAIN/PRESSURE. BP STABLE. COMPLAINS OF NAUSEA THIS AM, MEDICATED WITH ZOFRAN WITH GOOD RELIEF. PATIENT EATING AND DRINKING FLUIDS. RIGHT AC IV POSITIONAL, SALINE LOCKED AT THIS TIME. SKIN OVERALL C/D/I. PLAN FOR ECHO THIS AM. WILL CONTINUE TO MONITOR.
--- NOTE | 2021-10-22 12:49 | NUR ---
PATIENT UP TO BATHROOM MULTIPLE TIMES. GOOD URINE OUTPUT. MONITORING I/O STRICTLY. NEW IV PLACED IN LEFT AC. DR. NICHOLAS IN TO SEE PATIENT. NO NEW ORDERS AT THIS TIME. PATIENT LEANED FORWARD IN BED WITH DR. NICHOLAS IN ROOM AND STARTED TO HAVE "RERE HORSE" IN LEFT SIDE. STATES IT HAPPENS INTERMIT. STANDING IN ROOM STRETCHING, TRYING TO RELIEVE CRAMP. ANXIOUS AT TIMES, STATING "I JUST DON'T FEEL GOOD". THIS RN OFFERING MULTIPLE INTERVENTIONS, PATIENT DENIES NEED FOR ANYTHING WELL ANY ANXIETY MEDICATION AT THIS TIME. PATIENT ABLE TO SIT BACK IN BED AND EAT A FEW BITES OF LUNCH. DENIES NAUSEA, JUST STATES HER STOMACH HURTS ON AND OFF. VITAL SIGNS REMAINS STABLE. SLEEPING NOW. WILL CONTINUE TO MONITOR.
--- NOTE | 2021-10-22 14:33 | NUR ---
PATIENT COMPLAINING OF STOMACH PAIN. DENIES CONSTIPATION. DENIES NAUSEA. STATES SHE HAS "STOMACH ACHE AND THATS ALL". PATIENT ANXIOUS AND CONSTANTLY MOVING IN BED. THIS RN PLACED CALL TO DR. NICHOLAS TO UPDATE ON STOMACH PAIN AND ANXIETY. ORDERS TO USE HEAT IF NEEDED. NO OTHER NEW ORDERS AT THIS TIME. OFFERED PATIENT HEATING PAD, PATIENT DENIES NEED. COUGH MEDICINE PROVIDED UPON REQUEST. ECHO BEING DONE AT THIS TIME. WILL CONTINUE TO MONITOR.
--- NOTE | 2021-10-22 17:53 | NUR ---
SHIFT SUMMARY: NO ACUTE CHANGES. PATIENT MORE AWAKE THROUGHOUT SHIFT. FEELING BETTER WITH ZOFRAN, COUGH MEDICINE AND ATIVAN. NEURO REMAINS UNCHANGED. UP TO BATHROOM IND. THIS RN ASK THAT PATIENT CALLED TO USE RESTROOM FOR HELP WITH TELE BOX. REMAINS ON ROOM AIR. OCCASIONAL COUGH PRN COUGH MED. TELE REMAINS SINUS TACH WITH HR 110'S. DENIES CHEST PAIN/PRESSURE. BP REMAINED STABLE. OCCASIONAL STOMACH CRAMPING, IMPROVEMENT THROUGHOUT SHIFT. EATING DINNER AT THIS TIME. FAMILY IN TO SEE PATIENT. ANXIOUS THROUGHOUT DAY, INCREASING WITH NOT FEELING WELL AND INTERMITTENT MUSCLE CRAMPING. PRN ATIVAN HELPFUL. STRICT I/O. GOOD URINE OUTPUT. CALL LIGHT IN REACH. WILL CONTINUE TO MONITOR AND REPORT OFF TO ONCOMING RN.
[2021-10-23 05:20] LABS: Hematocrit 37.9 % (33.0-51.0); Hemoglobin 12.1 g/dL (11.5-16.0); Mean Corpuscular HGB 31.1 pg (26.0-34.0); Mean Corpuscular HGB Conc 31.9 g/dL (31.5-36.5); Mean Corpuscular Volume 97 fL (80-100); Mean Platelet Volume 10.4 fL (9.1-12.4); NRBC ABSOLUTE 0.04 K/mm3 (0.00-0.02); NRBC Auto 0.5 /100 WBC (0.0-0.2); Platelet Count 322 K/mm3 (150-400); Red Blood Cell Count 3.89 M/mm3 (3.80-5.20); White Blood Cell Count 8.66 K/mm3 (4.00-11.30)
[2021-10-23 05:40] LABS: Anion Gap 8 mmol/L (6-16); Blood Urea Nitrogen 21 mg/dL (8-24); Bun/Creatinine Ratio 24.9 (12.0-20.0); CO2, Blood 30 mmol/L (21-32); Calcium, Blood 8.6 mg/dL (8.5-10.1); Chloride, Blood 97 mmol/L (98-108); Creatinine, Blood 0.85 mg/dL (0.40-1.00); Glomerular Filtration Rate 92 (60-); Glucose, Blood 156 mg/dL (70-99); Phosphorus, Blood 2.2 mg/dL (2.5-4.9); Potassium, Blood 3.1 mmol/L (3.5-5.5); Sodium, Blood 135 mmol/L (136-145)
--- NOTE | 2021-10-23 05:50 | NUR ---
NO ACUTE EVENTS OVERNIGHT. PT SLEPT THROUGHOUT MOST OF THE NIGHT. MS. ABBASI DOES COMPLAIN OF SOME NAUSEA AND STOMACH DISCOMFORT, WHICH IS RELIEVED WITH ONDANSETRON. SHE DOES MAKE FREQUENT REQUESTS FOR SNACKS AND SODA. I ENCOURAGED HER TO ALLOW HER STOMACH AND BOWEL TO REST OVERNIGHT TO SEE IF THAT MAY HELP TO RELIEVE SOME OF THE NAUSEA. WEIGHT INCREASED 2.0 KG FROM ADMIT WEIGHT.
--- NOTE | 2021-10-23 08:30 | NUR ---
AM NOTE: PATIENT ALERT AND ORIENTED X4. NEURO WNL. DENIES NUMBNESS/TINGLING. PERRLA. VERY TIRED AND SLEEPY. ON ROOM AIR SATING ABOVE 94%. EXPIRATORY WHEEZE HEARD IN UPPER LOBES. OCCASIONAL DRY COUGH. TELE SHOWING SINUS TACH WITH HR 110'S. DENIES CHEST PAIN/PRESSURE. BP STABLE. SOME EDEMA IN BLE. COMPLAINS OF "STOMACH PAIN" THIS AM. THIS RN ASKING QUESTIONS ON QUALITY, PATTERN, AND ONSET. PATIENT UNABLE TO EXPLAIN DETAILS OF PAIN AND STATES "IT JUST HURTS". WHEN ASKED IF THE ZOFRAN HAS BEEN HELPING PATIENT STATED "YES". PLAN FOR ABDOMINAL XRAY THIS AM. MONITORING I/O STRICTLY. THIS RN EDUCATED PATIENT ON GOAL OF DIURESING. PLAN TO REPLACE K+ AND PHOS THIS AM ONCE RECIEVED FROM PHARAMACY. EATING BREAKFAST AT THIS TIME. WILL CONTINUE TO MONITOR. CALL LIGHT IN REACH.
--- NOTE | 2021-10-23 17:42 | NUR ---
SHIFT SUMMARY: NO ACUTE CHANGES. NEURO REMAINS UNCHANGED. ON ROOM AIR. NO EVENTS ON TELE. SINUS TACH WITH HR 110'S. DENIES CHEST PAIN/PRESSURE. THROUGHOUT SHIFT. COMPLAINED OF STOMACH PAIN THIS AM. ABDOMINAL XRAY COMPLETED. ONE EPISODE OF ANXIETY RELIEVED WITH PO ATIVAN. SLEEPING ON AND OFF. VITAL SIGNS REMAINED STABLE. ECHO STILL PENDING. POTASSIUM AND PHOSPHORUS REPLACED. CALL LIGHT IN REACH. DENIES NEEDS AT THIS TIME. STRICT I/O.
--- NOTE | 2021-10-23 20:00 | NUR ---
DURING MY SHIFT ASSESSMENT, MS. ABBASI APPEARED TO BE ANXIOUS AND SOMEWHAT AGITATED. SHE STATED THAT SHE WAS TIRED OF BEING AWAKENED BY STAFF AND NOT GETTING ANY RELIEF FOR HER STOMACH PAIN. I ATTEMPTED TO HAVE A DISCUSSION WITH HER REGARDING THE ADDITION OF MIRALAX TO AID HER IN HAVING A BOWEL MOVEMENT THE PHYSICIAN SUSPECTS THAT CONSTIPATION COULD BE CAUSING SOME DISCOMFORT. NO ABONORMALITIES WERE SEEN ON THE ABDOMINAL XRAY THAT WAS COMPLETED EARLIER THIS MORNING. MS. ABBASI STATED THAT SHE IS NOT CONSTIPATED AND THAT SHE HAD 2 BOWEL MOVEMENTS EARLIER IN THE DAY. I ENCOURAGED HER TO CONSIDER SOME BOWEL REST BY REDUCING THE FREQUENCY OF SNACKS (PT IS EATING A FAIR AMOUNT OF CHEESE AND CRACKERS AND CAFFEINATED CARBONATED BEVERAGES THESE CAN SOMETIMES CAUSE STOMACH UPSET. PT BECAME UPSET AND SAID "YOU PEOPLE JUST DON'T WANT ME TO BE COMFORTABLE. ANY TIME PEOPLE HERE SEE MY LAST NAME THEY JUST THINK ALL I WANT IS PAIN MEDS, AND I CAN'T GET ANY HELP." I APOLOGIZED IF WE ARE CAUSING HER TO FEEL THIS WAY AND DID OFFER TO CALL THE PHYSICIAN TO REQUEST SOME PAIN MEDICATION. I CALLED DR. TOM KING REGARDING PT'S COMPLIANTS OF STOMACH PAIN. NO ORDERS RECEIVED FOR ANY ANALGESICS AT THIS TIME.
--- NOTE | 2021-10-24 05:59 | NUR ---
MS. ABBASI SLEPT OFF AND ON THROUGH THE NIGHT. THE STOMACH PAIN AND NAUSEA SHE HAS BEEN EXPERIENCING OVER THE PAST 48 HOURS PERSISTS. SHE DID HAVE ONE EPISODE OF EMESIS AROUND 2230 LAST EVENING. PT REPORTS THAT SHE DOES GET SOME RELIEF FROM HER STOMACH PAIN WITH ZOFRAN. A TOTAL OF 2 DOSES OF ZOFRAN AND 2 DOSES OF ATIVAN WERE ADMINISTERED OVERNIGHT TONIGHT. HER ANXIETY AND IRRITABILITY WAS LESS THIS MORNING COMPARED TO LAST EVENING.
--- NOTE | 2021-10-24 09:28 | NUR ---
AM NOTE: PATIENT ALERT AND ORIENTED X4. IRRITABLE THIS AM WITH MORN CARES AND VITALS. STATES SHE IS JUST OVERALL NOT FEELING WELL. NEURO WNL. UP TO BATHROOM IND/SBA. ON ROOM AIR SATING ABOVE 94%. OCCASIONAL COUGH. EXPIRATORY WHEEZE HEARD IN UPPER LOBES, PRN BREATHING TREATMENTS. TELE SHOWING SINUS TACH WITH HR 110'S. DENIES CHEST PAIN/PRESSURE. HEART SOUNDS WNL. BP STABLE. ON ELIQUIS. COMPLAINS OF STOMACH PAIN, UNABLE TO DESCRIBE SPECIFICS. MORN PROTONIX GIVEN. STRICT I/O. SKIN WNL. IV SALINE LOCKED. CALL LIGHT IN REACH. DENIES NEEDS AT THIS TIME. STATES SHE JUST WANTS TO REST. WILL CONTINUE TO MONITOR.
[2021-10-24 11:14] LABS: Albumin, Blood 3.2 g/dL (3.4-5.0); Albumin/Globulin Ratio 0.9 (0.8-1.8); Bilirubin, Total 1.2 mg/dL (0.1-1.0); Bun/Creatinine Ratio 24.3 (12.0-20.0); Calcium, Blood 8.2 mg/dL (8.5-10.1); Creatinine, Blood 0.78 mg/dL (0.40-1.00); Globulin, Blood 3.7 g/dL (2.2-4.0); Magnesium, Blood 1.9 mg/dL (1.6-2.4); Potassium, Blood 3.5 mmol/L (3.5-5.5); Total Protein, Blood 6.9 g/dL (6.4-8.2)
--- NOTE | 2021-10-24 14:30 | NUR ---
PT ARRIVED TO UNIT FROM PCU VIA WC, PT ABLE TO SELF TRANSFER TO BED. VSS. TELE ST @ 110. PT ORIENTED TO ROOM AND CALL LIGHT W/IN REACH.
--- NOTE | 2021-10-24 14:34 | NUR ---
TRANSFER NOTE: NO ACUTE CHANGES SEE PREVIOUS NOTE FOR UPDATES. COMPLAIND OF STOMACH PAIN, MEDICATED WITH ZOFRAN WITH GOOD RELIEF. ANXIETY THIS AFTERNOON, MEDICATED WITH ATIVAN. VITAL SIGNS REMAINS STABLE. TRANFERRED UP TO MEDICAL. TELE NOTIFIED OF ROOM TRANSFER.
--- NOTE | 2021-10-24 18:41 | NUR ---
DR CONTACTED LAING PT HYPOTENSION, PLAN TO REASSESS W/ NEW SHIFT AND CALL DR BACK W/ CHANGES
--- NOTE | 2021-10-24 18:42 | NUR ---
SHIFT SUMMARY PT A&O X4 AND IN PLEASENT MOOD. C/O ANXIETY. TELE IN PLACE ST 110. CALL LIGHT W/IN REACH. CONT. C/O DIZZINESS, COREG HELD DUE TO HYPOTENSION- NOTIFIED. TRANSFERED FROM [facility] 0760. TOLERATING PO INTAKE.
--- NOTE | 2021-10-24 20:11 | NUR ---
ATTEMPTED TO GO INTO PT ROOM, PT YELLED AT RN "GET OUT" "I JUST WANT TO SLEEP" THIS RN INTRODUCED HERSELF AND WAS TOLD "I DONT CARE" BY PT. WILL TRY AGAIN IN ONE HOUR UNLESS PT CALLS BEFOREHAND.
--- NOTE | 2021-10-25 05:51 | NUR ---
PT IS VERY ANXIOUS AND UNHAPPY ABOUT BEING AT HOSPITAL, EGGCRATE MATTRESS PLACED ON BED FOR COMFORT, MEDICATED FOR ANXIETY. PT AT ONE POINT REFUSED TO WEAR TELE MONITOR, BUT EVENTUALLY AGREED. CASHG AC/HS.
[2021-10-25 07:59] LABS: Hematocrit 41.5 % (33.0-51.0); Mean Corpuscular HGB 30.3 pg (26.0-34.0); Mean Corpuscular HGB Conc 31.3 g/dL (31.5-36.5); Mean Corpuscular Volume 97 fL (80-100); Mean Platelet Volume 9.6 fL (9.1-12.4); NRBC ABSOLUTE 0.02 K/mm3 (0.00-0.02); NRBC Auto 0.2 /100 WBC (0.0-0.2); Platelet Count 366 K/mm3 (150-400); RDW Coefficient Variation 16.8 % (11.7-14.2); RDW Standard Deviation 55.8 fL (35.1-46.3); Red Blood Cell Count 4.29 M/mm3 (3.80-5.20); White Blood Cell Count 9.12 K/mm3 (4.00-11.30)
[2021-10-25 08:17] LABS: Albumin, Blood 3.1 g/dL (3.4-5.0); Anion Gap 8 mmol/L (6-16); Blood Urea Nitrogen 20 mg/dL (8-24); CO2, Blood 26 mmol/L (21-32); Calcium, Blood 8.2 mg/dL (8.5-10.1); Chloride, Blood 102 mmol/L (98-108); Creatinine, Blood 0.74 mg/dL (0.40-1.00); Glomerular Filtration Rate 108 (60-); Glucose, Blood 127 mg/dL (70-99); Phosphorus, Blood 2.3 mg/dL (2.5-4.9); Sodium, Blood 136 mmol/L (136-145)
[2021-10-25] MEDS ORDERED: LORA.5 PO (15:29)
[2021-10-25] MEDS ORDERED: PANT40 PO (15:30)
[2021-10-25] MEDS ORDERED: MIRALAX1713 PO (15:31)
--- NOTE | 2021-10-25 18:37 | NUR ---
DISCHARGE NOTE- PT WAS GIVEN VERBAL AND WRITTEN DISCHARGE INSRUCTIONS AND ACKNOWLEDGED UNDERSTANDING OF THEM. PT HAD NO S&S OF DISTRESS AT THE TIME OF DISCHARGE. PPT WAS ESCORTED OUT VIA WC BY THIS RN. PT RECIEVED A HARD COPY SCRIPT WITH HER DISCHARGE INFORMATION, IV'S AT TELE DC'D PRIOR TO DISCHARGE.
== END 2021-10-25 17:50 | disposition home or self-care (01) | DRG 291 ==
LOC: ER 13:24 → PCU 16:37 → MEDS 10-24 14:30
PROVIDERS: Internal Medicine; Physician Assistant; ADMIT Internal Medicine
DX: I11.0 Hypertensive heart disease with heart failure (principal); I50.23 Acute on chronic systolic (congestive) heart failure; Z68.41 Body mass index [BMI] 40.0-44.9, adult; I42.7 Cardiomyopathy due to drug and external agent; T43.625A Adverse effect of amphetamines, initial encounter; G25.81 Restless legs syndrome; F41.9 Anxiety disorder, unspecified; K59.00 Constipation, unspecified; I42.0 Dilated cardiomyopathy; E11.9 Type 2 diabetes mellitus without complications; E87.6 Hypokalemia; E83.39 Other disorders of phosphorus metabolism; I08.1 Rheumatic disorders of both mitral and tricuspid valves; E66.01 Morbid (severe) obesity due to excess calories; K76.1 Chronic passive congestion of liver; K21.9 Gastro-esophageal reflux disease without esophagitis; I95.9 Hypotension, unspecified; I48.91 Unspecified atrial fibrillation; Z86.711 Personal history of pulmonary embolism; Z98.51 Tubal ligation status; Z86.718 Personal history of other venous thrombosis and embolism; Z98.891 History of uterine scar from previous surgery; Z95.810 Presence of automatic (implantable) cardiac defibrillator; Z87.891 Personal history of nicotine dependence; Z88.8 Allergy status to other drugs, medicaments and biological substances; Z88.0 Allergy status to penicillin; Z79.01 Long term (current) use of anticoagulants; Z79.899 Other long term (current) drug therapy
CPT/HCPCS: 36415; 71045; 74018; 80053; 80069; 82550; 82947; 83735; 83880; 84484; 84703; 85025; 85027; 93005; 93010; 93306; 94640; 94664; 94760; 96374; 96375; 99285-25; A9270; C9113; J1650; J1940; J2405; J3480; J7040; J7060

== ENCOUNTER 2021-11-04 10:49 | Inpatient (IN) | payer OTHER ==
[~2021-11-04] VITALS: Ht 162.6 cm; Wt 152.7 kg
[~2021-11-04 10:49] MED LIST changes: +Children's Clari5 MG PO; +LORA.5 PO; +MIRALAX1713 PO
[2021-11-04 11:37] LABS: BASOPHILS ABSOLUTE AUTO 0.07 K/mm3 (0.00-0.23); BASOPHILS PERCENT AUTO 1 % (0-2); EOSINOPHILS ABSOLUTE AUTO 0.15 K/mm3 (0.00-0.68); EOSINOPHILS PERCENT AUTO 2 % (0-6); Hematocrit 44.2 % (33.0-51.0); Hemoglobin 13.8 g/dL (11.5-16.0); IMMATURE GRAN ABSOLUTE AUTO 0.01 K/mm3 (0.00-0.10); IMMATURE GRAN PERCENT AUTO 0 % (0-1); LYMPHOCYTES ABSOLUTE AUTO 1.18 K/mm3 (0.84-5.20); LYMPHOCYTES PERCENT AUTO 17 % (21-46); MONOCYTES PERCENT AUTO 10 % (4-13); Mean Corpuscular HGB 30.4 pg (26.0-34.0); Mean Corpuscular HGB Conc 31.2 g/dL (31.5-36.5); Mean Corpuscular Volume 97 fL (80-100); Mean Platelet Volume 9.5 fL (9.1-12.4); NEUTROPHILS ABSOLUTE AUTO 4.68 K/mm3 (1.96-9.15); NEUTROPHILS PERCENT AUTO 69 % (41-73); Platelet Count 280 K/mm3 (150-400); RDW Coefficient Variation 15.9 % (11.7-14.2); RDW Standard Deviation 56.7 fL (35.1-46.3); Red Blood Cell Count 4.54 M/mm3 (3.80-5.20); White Blood Cell Count 6.79 K/mm3 (4.00-11.30)
[2021-11-04 11:48] LABS: Albumin, Blood 3.1 g/dL (3.4-5.0); Albumin/Globulin Ratio 0.9 (0.8-1.8); Bilirubin, Total 2.2 mg/dL (0.1-1.0); Bun/Creatinine Ratio 16.6 (12.0-20.0); Calcium, Blood 9.1 mg/dL (8.5-10.1); Creatinine, Blood 0.84 mg/dL (0.40-1.00); Globulin, Blood 3.6 g/dL (2.2-4.0); Potassium, Blood 3.9 mmol/L (3.5-5.5); Total Protein, Blood 6.7 g/dL (6.4-8.2)
[2021-11-04 13:49] LABS: Source, Urine Clean Catch
[2021-11-04 13:57] LABS: Appearance, Urine Clear (Clear); Bilirubin, Urine Neg (Neg); Blood, Urine Neg (Neg); Color, Urine Yellow (P-Yellow); Glucose Qualitative, Urine Neg (Neg); Ketones, Urine Neg (Neg); Leukocyte Esterase, Urine Neg (Neg); Nitrite, Urine Neg (Neg); Protein, Urine Neg (Neg); Specific Gravity, Urine 1.015 (1.003-1.022); Urobilinogen, Urine 1+ (Normal)
[2021-11-04 15:34] LABS: U Amphetamine Screen Not Detected; U Barbituate Screen Not Detected; U Benzodiazapine Screen Not Detected; U Buprenorphine Screen Not Detected; U Cannabinoids Screen DETECTED; U Cocaine Screen Not Detected; U Methadone Screen Not Detected; U Methamphetamine Screen Not Detected; U Opiates Screen Not Detected; U Oxycodone Screen Not Detected; U Phencyclidine Screen Not Detected; U Propoxyphene Screen Not Detected
--- NOTE | 2021-11-04 19:12 | NUR ---
SHIFT SUMMARY PATIENT ADMITTED FROM ER FOR ACUTE ON CHRONIC CHF. ORIENTED TO ROOM AND ADMISSION ASSESSMENTS COMPLETED. A&OX4. SBA TO RESTROOM. C/O BACK PAIN, NAUSEA AND RERE HORSES. MEDICATED PER JUL. BP ELEVATED WHEN ARRIVING TO FLOOR, SCHEDULED MEDS GIVEN. TELE MONITOR PLACED AND TACHY. HAS PACEMAKER. SEVERE ABDOMINAL DISTENTION PRESENT. WORKING IV IN LEFT UPPER ARM, HOWEVER PATIENT COMPLAINING SHE WANTS AN IV IN A DIFFERENT PLACE. REPORT GIVEN TO ONCOMING RN.
--- NOTE | 2021-11-05 04:27 | NUR ---
SHIFT SUMMARY PATIENT ANXIOUS T/O SHIFT. PO SCHEDULE ATIVAN 0.5 MG GIVEN PER EMAR. AXOX 4 AND INDEPENDENT IN ROOM. REPORTED PIV PAINFUL AND NEW PIV PLACED. DENIES CHEST PAIN, SOB, AND N/V. TELE MONITOR ST 108 AVERAGE. PACEMAKER. CBG 158. SEVERE ABDOMINAL DISTENTION AND REPORTED DISCOMFORT. YELLES OUT T/O THE SHIFT OR MOANING. FAMILY PRESENT AT START OF SHIFT AND PATIENT HEARD LAUGHING. MINIMAL SLEEP THIS SHIFT. CALL LIGHT IN REACH. BED IN LOWEST POSITION. WILL CONTINUE TO MONITOR UNTIL DAY SHIFT NURSE ASSUMES CARE.
[2021-11-05 05:42] LABS: Bun/Creatinine Ratio 19.7 (12.0-20.0); Calcium, Blood 9.1 mg/dL (8.5-10.1); Creatinine, Blood 0.81 mg/dL (0.40-1.00); Potassium, Blood 4.4 mmol/L (3.5-5.5)
--- NOTE | 2021-11-05 10:13 | NUR ---
PATIENT REQUESTING TO GO FOR WALK WITH HER FAMILY. INFORMED PATIENT AND FAMILY THAT THEY CAN WALK AROUND THIS FLOOR BUT ARE NOT TO LEAVE THE FLOOR. WHEELCHAIR PROVIDED FOR PATIENT.
--- NOTE | 2021-11-05 19:06 | NUR ---
SHIFT SUMMARY PATIENT A&OX4. INDEPENDENT IN ROOM. ON TELE ST. PACEMAKER PRESENT. SOFT BP. OTHER VSS. WENT FOR WALK IN WHEELCHAIR WITH FAMILY. FAMILY AT BEDSIDE MOST OF SHIFT. NO SIGNIFICANT EVENTS. WILL CONTINUE TO MONITOR.
--- NOTE | 2021-11-06 03:50 | NUR ---
CAP JEWEL PLATE ASSEMBLER SUMMARY ALERT AND ORIENTED. ANXIOUS AT SHIFT COMMENCE. IV PLACED, NAUSEA AND VOMITING SOME. ZOFRAN GIVEN. INTERMITTENT CALLING OUT, OCCASIONAL SCREAMING. STAFF IN ROOM INTERMITTENTLY AND FINALLY PT SEEMED TO CALM DOWN AND WENT TO SLEEP. TELE A-FIB, PACED. NO NOTED DISTRESS. CALL LIGHT IN REACH
[2021-11-06 06:01] LABS: Albumin, Blood 2.9 g/dL (3.4-5.0); Anion Gap 8 mmol/L (6-16); Blood Urea Nitrogen 16 mg/dL (8-24); Bun/Creatinine Ratio 18.8 (12.0-20.0); CO2, Blood 29 mmol/L (21-32); Calcium, Blood 8.7 mg/dL (8.5-10.1); Chloride, Blood 99 mmol/L (98-108); Creatinine, Blood 0.85 mg/dL (0.40-1.00); Glomerular Filtration Rate 92 (60-); Glucose, Blood 99 mg/dL (70-99); Phosphorus, Blood 2.9 mg/dL (2.5-4.9); Potassium, Blood 3.6 mmol/L (3.5-5.5); Sodium, Blood 136 mmol/L (136-145)
--- NOTE | 2021-11-06 17:46 | NUR ---
SHIFT SUMMARY; PATIENT CURRENTLY ON A 1500 ML FLUID RESTRICTION. SHE IS INDEPENDANT IN THE ROOM. TAKES HER PILLS WHOLE WITH WATER. PATIENT COMPLAINS OF ANXIETY THIS AM AND WAS GIVEN SCHEDULED ATIVAN WITH MUCH SUCCESS. SHE HAS AN IV TO HER LEFT WRIST THAT FLUSHES EASILY. VITAL SIGNS ARE WNL THROUGHOUT THE DAY AND PATIENT HAS ONLY MINIMAL COMPLAINTS OF SLIGHT NAUSEA AND FEELING FULL. SHE EXPRESSES THAT SHE IS FEELING LESS SHORT OF BREATH TODAY AND HOPES TO GO HOME TOMORROW.
--- NOTE | 2021-11-06 20:35 | NUR ---
BP 94/64, LEGS ELEVATED TO RETAKE BP LATER. CALL LIGHT IN REACH
--- NOTE | 2021-11-07 03:48 | NUR ---
PHARMACY RESOURCE TECH SUMMARY AT SHIFT COMMENCE, VOICED FEELING "BETTER" THAN YESTERDAY. AFFECT MORE CHEERFUL, TEOLERATED HS SNACK, VOICED ANNOYANCE WHEN DIET/FLUID RESTRICTION DISCUSSED, THAT IT INCREASED HER ANXIETY. RECEIVED ZOFRAN IV X 1 FOR NAUSEA. MEDICATED FOR PAIN - SEE MAR FOR DETAILS. EVETUALLY REQUESTED A FEW WARM BLANKETS AND HAS BEEN RSETING QUIETLY WITH FEW INTERRUPTIONS SINCE. CALL LIGHT IN REACH. VSS. UP AD RICHIE.
[2021-11-07 06:28] LABS: Albumin, Blood 2.9 g/dL (3.4-5.0); Anion Gap 7 mmol/L (6-16); Blood Urea Nitrogen 20 mg/dL (8-24); Bun/Creatinine Ratio 22.5 (12.0-20.0); CO2, Blood 30 mmol/L (21-32); Calcium, Blood 8.6 mg/dL (8.5-10.1); Chloride, Blood 100 mmol/L (98-108); Creatinine, Blood 0.89 mg/dL (0.40-1.00); Glomerular Filtration Rate 87 (60-); Glucose, Blood 88 mg/dL (70-99); Phosphorus, Blood 2.9 mg/dL (2.5-4.9); Potassium, Blood 3.4 mmol/L (3.5-5.5); Sodium, Blood 137 mmol/L (136-145)
--- NOTE | 2021-11-07 15:08 | NUR ---
PATIENT SHOWING MUCH AGITATION PERIODICALLY DURING DAY. SHE YELLS OUT AND SAYS "NO ONE IS PAYING ATTENTION" WHEN THIS RN GOES TO ROOM PATIENT IS SLEEPING. SHE EATS HER MEALS VERY RAPIDLY AND IS NOTED TO THROW FOOD AND PAPER FROM TRAY ON FLOOR. PATIENT REQUEST WATER OR SOFT DRINKS REPEATEDLY DURING DAY. SINCE PATIENT IS ON A 1500ML FLUID RESTRICTION PATIENT IS EDUCATED OFTEN HOW MUCH FLUID IS LEFT FOR INTAKE DURING DAY. PATIENT ABLE TO VERBALIZE UNDERSTANDING. SHE IS INDEPENDANT TO THE BATHROOM AND LETS STAFF KNOW HOW MUCH URINE SHE HAS IN HAT PRIOR TO DUMPING IT IN THE TOILET. HER CHEM BG'S ARE LOW DURING DAY BOTH BEING BELOW 100 PRIOR TO AM AND NOON MEALS.
--- NOTE | 2021-11-08 03:33 | NUR ---
SUPERVISOR SANDBLASTER SUMMARY TOLERATED HS MEDS WELL. ASKED FOR "TRAZODONE" FOR SLEEP, MED RECEIVED AND HAS BEEN RESTING WITH FEW INTERRUPTIONS SINCE - OTHER THAN OCCASIONAL CALLING OUT. VOICED BEFORE TAKING HS MEDS, HAS A HABBIT EVIDENTLY OF CALLING OUT WHILE SLEEPING. NO NOTED ACUTE DISTRESS. CALL LIGHT IN REACH. VSS
[2021-11-08 05:48] LABS: Anion Gap 6 mmol/L (6-16); Blood Urea Nitrogen 18 mg/dL (8-24); CO2, Blood 31 mmol/L (21-32); Calcium, Blood 8.9 mg/dL (8.5-10.1); Chloride, Blood 101 mmol/L (98-108); Glomerular Filtration Rate 86 (60-); Glucose, Blood 95 mg/dL (70-99); Phosphorus, Blood 2.9 mg/dL (2.5-4.9); Potassium, Blood 3.9 mmol/L (3.5-5.5); Sodium, Blood 138 mmol/L (136-145)
[2021-11-08] MEDS ORDERED: POTCHL20ER PO (11:02)
[2021-11-08] MEDS ORDERED: TRAZ100 PO (11:02)
--- NOTE | 2021-11-08 11:38 | NUR ---
DISCHARGE SUMMARY PT AxOx4. PT DISCHARGING TO HOME TODAY WITH FAMILY. PT GIVEN IV DIURETICS. LS DIM IN THE BASES. PT INDEPENDENT IN THE ROOM. PT QUESTIONING FLUID RESTRICTION, POSSIBLY NON-COMPLIANT WITH FLUID INTAKE LIMITS. VITALS REVIEWED. PT GIVEN DC INSTRUCTIONS INCLUDING DC MEDICATIONS, FOLLOW UP APPOINTMENTS AND PT EDUCATION. PT DENIES ANY FURTHER QUESTIONS AT THIS TIME. PT SAFELY ESCORTED OUT VIA WC WITH STAFF.
== END 2021-11-08 11:37 | disposition home or self-care (01) | DRG 917 ==
LOC: ER 10:49 → MEDS 10:50
PROVIDERS: Emergency Medicine; Internal Medicine; Physician Assistant; ADMIT Internal Medicine
DX: T43.621A Poisoning by amphetamines, accidental (unintentional), initial encounter (principal); I50.23 Acute on chronic systolic (congestive) heart failure; Z68.41 Body mass index [BMI] 40.0-44.9, adult; I42.0 Dilated cardiomyopathy; I11.0 Hypertensive heart disease with heart failure; F15.10 Other stimulant abuse, uncomplicated; E11.9 Type 2 diabetes mellitus without complications; E88.81 Metabolic syndrome and other insulin resistance; F41.9 Anxiety disorder, unspecified; G25.81 Restless legs syndrome; K21.9 Gastro-esophageal reflux disease without esophagitis; E66.01 Morbid (severe) obesity due to excess calories; I08.1 Rheumatic disorders of both mitral and tricuspid valves; I48.91 Unspecified atrial fibrillation; F12.10 Cannabis abuse, uncomplicated; R14.0 Abdominal distension (gaseous); G47.00 Insomnia, unspecified; Z98.51 Tubal ligation status; Z98.890 Other specified postprocedural states; Z87.891 Personal history of nicotine dependence; Z88.8 Allergy status to other drugs, medicaments and biological substances; Z95.810 Presence of automatic (implantable) cardiac defibrillator; Z86.718 Personal history of other venous thrombosis and embolism; Z86.711 Personal history of pulmonary embolism; Z79.01 Long term (current) use of anticoagulants; Z88.0 Allergy status to penicillin; Z79.51 Long term (current) use of inhaled steroids; Z79.899 Other long term (current) drug therapy; Z79.84 Long term (current) use of oral hypoglycemic drugs; Z71.51 Drug abuse counseling and surveillance of drug abuser
CPT/HCPCS: 36415; 71045; 80048; 80053; 80069; 81003; 82947; 83880; 84484; 85025; 93005; 93010; 94640; 94664; 94760; 96374; 96375; 96376; 99285-25; A9270; G0378; J1815; J2405

== ENCOUNTER 2021-11-17 16:16 | Inpatient (IN) | payer OTHER ==
[~2021-11-17] VITALS: Ht 162.6 cm; Wt 144.1 kg
[~2021-11-17 16:16] MED LIST changes: +POTCHL20ER PO; +TRAZ100 PO
[2021-11-17 17:19] LABS: BASOPHILS ABSOLUTE AUTO 0.11 K/mm3 (0.00-0.23); BASOPHILS PERCENT AUTO 2 % (0-2); EOSINOPHILS PERCENT AUTO 1 % (0-6); Hematocrit 48.4 % (33.0-51.0); Hemoglobin 14.6 g/dL (11.5-16.0); IMMATURE GRAN ABSOLUTE AUTO 0.02 K/mm3 (0.00-0.10); IMMATURE GRAN PERCENT AUTO 0 % (0-1); LYMPHOCYTES ABSOLUTE AUTO 2.01 K/mm3 (0.84-5.20); LYMPHOCYTES PERCENT AUTO 27 % (21-46); MONOCYTES ABSOLUTE AUTO 0.89 K/mm3 (0.16-1.47); MONOCYTES PERCENT AUTO 12 % (4-13); Mean Corpuscular HGB 27.9 pg (26.0-34.0); Mean Corpuscular HGB Conc 30.2 g/dL (31.5-36.5); Mean Corpuscular Volume 92 fL (80-100); Mean Platelet Volume 10.2 fL (9.1-12.4); NEUTROPHILS ABSOLUTE AUTO 4.45 K/mm3 (1.96-9.15); NEUTROPHILS PERCENT AUTO 59 % (41-73); NRBC ABSOLUTE 0.03 K/mm3 (0.00-0.02); NRBC Auto 0.4 /100 WBC (0.0-0.2); Platelet Count 362 K/mm3 (150-400); RDW Coefficient Variation 16.4 % (11.7-14.2); RDW Standard Deviation 55.1 fL (35.1-46.3); Red Blood Cell Count 5.24 M/mm3 (3.80-5.20); White Blood Cell Count 7.58 K/mm3 (4.00-11.30)
[2021-11-17 17:30] LABS: Albumin, Blood 3.4 g/dL (3.4-5.0); Albumin/Globulin Ratio 0.8 (0.8-1.8); Bilirubin, Total 3.2 mg/dL (0.1-1.0); Bun/Creatinine Ratio 19.8 (12.0-20.0); Calcium, Blood 10.6 mg/dL (8.5-10.1); Creatinine, Blood 1.06 mg/dL (0.40-1.00); Globulin, Blood 4.1 g/dL (2.2-4.0); Potassium, Blood 4.5 mmol/L (3.5-5.5); Total Protein, Blood 7.5 g/dL (6.4-8.2)
[2021-11-18 03:26] LABS: U Amphetamine Screen Not Detected; U Barbituate Screen Not Detected; U Benzodiazapine Screen DETECTED; U Buprenorphine Screen Not Detected; U Cannabinoids Screen Not Detected; U Cocaine Screen Not Detected; U Methadone Screen Not Detected; U Methamphetamine Screen Not Detected; U Opiates Screen Not Detected; U Oxycodone Screen Not Detected; U Phencyclidine Screen Not Detected; U Propoxyphene Screen Not Detected
[2021-11-18 04:53] LABS: BASOPHILS PERCENT AUTO 1 % (0-2); EOSINOPHILS ABSOLUTE AUTO 0.11 K/mm3 (0.00-0.68); EOSINOPHILS PERCENT AUTO 2 % (0-6); Hematocrit 44.9 % (33.0-51.0); Hemoglobin 13.8 g/dL (11.5-16.0); IMMATURE GRAN ABSOLUTE AUTO 0.03 K/mm3 (0.00-0.10); IMMATURE GRAN PERCENT AUTO 0 % (0-1); LYMPHOCYTES ABSOLUTE AUTO 1.94 K/mm3 (0.84-5.20); LYMPHOCYTES PERCENT AUTO 26 % (21-46); MONOCYTES ABSOLUTE AUTO 0.97 K/mm3 (0.16-1.47); MONOCYTES PERCENT AUTO 13 % (4-13); Mean Corpuscular HGB 28.3 pg (26.0-34.0); Mean Corpuscular HGB Conc 30.7 g/dL (31.5-36.5); Mean Corpuscular Volume 92 fL (80-100); Mean Platelet Volume 10.5 fL (9.1-12.4); NEUTROPHILS ABSOLUTE AUTO 4.42 K/mm3 (1.96-9.15); NEUTROPHILS PERCENT AUTO 58 % (41-73); Platelet Count 343 K/mm3 (150-400); RDW Coefficient Variation 16.2 % (11.7-14.2); RDW Standard Deviation 54.9 fL (35.1-46.3); Red Blood Cell Count 4.88 M/mm3 (3.80-5.20); White Blood Cell Count 7.57 K/mm3 (4.00-11.30)
[2021-11-18 05:13] LABS: Albumin, Blood 3.3 g/dL (3.4-5.0); Albumin/Globulin Ratio 0.9 (0.8-1.8); Bilirubin, Total 3.7 mg/dL (0.1-1.0); Bun/Creatinine Ratio 22.2 (12.0-20.0); Calcium, Blood 9.8 mg/dL (8.5-10.1); Creatinine, Blood 1.17 mg/dL (0.40-1.00); Globulin, Blood 3.6 g/dL (2.2-4.0); Total Protein, Blood 6.9 g/dL (6.4-8.2)
--- NOTE | 2021-11-18 05:17 | NUR ---
SHIFT SUMMARY: PATIENT A&O X4, INDEPENDENT IN ROOM, TACHYCARDIC WITH HTN, O2 SATS >94% ON RA, AFEBRILE. PATIENT COMPLAINS OF SOB, BUT WANTS TO LAY FLAT IN BED. PATIENT IS AGITATED AND ANTSY IN ROOM. MEDICATED PER EMAR FOR HR >130. SON AT BEDSIDE IN RECLINER. PATIENT MOANS AND CALLS OUT BUT DOES NOT USE CALL LIGHT REGULARLY THOUGH VERBALIZES UNDERSTANDING OF APPROPRIATE USE. BED LOW WITH CALL LIGHT IN REACH. WILL CONTINUE TO MONITOR AND REPORT TO ONCOMING RN.
--- NOTE | 2021-11-18 18:24 | NUR ---
MEDICAL STATUS / SHIFT SUMMARY PT A&O X4. INTERMITTENTLY SLEEPING ON/OFF T/O DAY. PT LOUDLY MOANS & GROANS @ TIMES WHEN AWAKE. PT LOUDLY YELLING OUT WHEN HAVING A "CHARLEY HORSE" IN HER LLE TODAY. NURSE AT BEDSIDE HELPED PT MASSAGE BACK OF LOWER LEG. DISCOMFORT SUBSIDED & DID NOT RETURN. PT VSS. SPO2 > 92% ON RA. MONITOR SHOWING ST, HR 110s-130s. NO EVENTS. PT MADE MEDICAL W/ TELE STATUS.
--- NOTE | 2021-11-19 00:33 | NUR ---
CARDIAC: BP WAS 85/65 MAP OF 72. PATIENT DID NOT WAKE TO VOICE INITIALLY. TRANSPORTATION PROJECT MANAGER TURNED ON ROOM LIGHT AND PATIENT WAS FULLY ALERT. PATIENT REPORTED DIZZINESS WHEN UP TO BATHROOM, NONE NOW. DR TREJO WAS NOTIFIED. NURSE NOTIFICATION ORDER GIVEN. CALL MD IF MAP ON BP IS LESS THAN 60. PATIENT IS NOW EATING A SNACK IN BED. A&OX4.
[2021-11-19 04:57] LABS: BASOPHILS ABSOLUTE AUTO 0.11 K/mm3 (0.00-0.23); BASOPHILS PERCENT AUTO 2 % (0-2); EOSINOPHILS ABSOLUTE AUTO 0.14 K/mm3 (0.00-0.68); EOSINOPHILS PERCENT AUTO 2 % (0-6); Hematocrit 40.4 % (33.0-51.0); Hemoglobin 12.8 g/dL (11.5-16.0); IMMATURE GRAN ABSOLUTE AUTO 0.02 K/mm3 (0.00-0.10); IMMATURE GRAN PERCENT AUTO 0 % (0-1); LYMPHOCYTES PERCENT AUTO 25 % (21-46); MONOCYTES ABSOLUTE AUTO 0.89 K/mm3 (0.16-1.47); MONOCYTES PERCENT AUTO 14 % (4-13); Mean Corpuscular HGB 28.4 pg (26.0-34.0); Mean Corpuscular HGB Conc 31.7 g/dL (31.5-36.5); Mean Corpuscular Volume 90 fL (80-100); Mean Platelet Volume 10.3 fL (9.1-12.4); NEUTROPHILS ABSOLUTE AUTO 3.57 K/mm3 (1.96-9.15); NEUTROPHILS PERCENT AUTO 56 % (41-73); Platelet Count 326 K/mm3 (150-400); RDW Coefficient Variation 16.2 % (11.7-14.2); RDW Standard Deviation 53.2 fL (35.1-46.3); White Blood Cell Count 6.33 K/mm3 (4.00-11.30)
[2021-11-19 05:13] LABS: Albumin, Blood 2.8 g/dL (3.4-5.0); Anion Gap 9 mmol/L (6-16); Blood Urea Nitrogen 34 mg/dL (8-24); Bun/Creatinine Ratio 30.6 (12.0-20.0); CO2, Blood 30 mmol/L (21-32); Calcium, Blood 8.8 mg/dL (8.5-10.1); Chloride, Blood 98 mmol/L (98-108); Creatinine, Blood 1.11 mg/dL (0.40-1.00); Glomerular Filtration Rate 66 (60-); Glucose, Blood 141 mg/dL (70-99); Phosphorus, Blood 3.9 mg/dL (2.5-4.9); Potassium, Blood 3.4 mmol/L (3.5-5.5); Sodium, Blood 137 mmol/L (136-145)
--- NOTE | 2021-11-19 06:36 | NUR ---
LATE ENTRY FOR 11/18/21 @ 7134: PATIENT WAS RECIEVED FROM PCU-8. A&OX3, NO REPORTS OF PAIN OR DISCOMFORT. ORIENTED TO THE ROOM AND CALL BRASWELL. PATIENT IS SLEEPY, WAS GIVEN ORAL ATIVAN AND TRAZDONE IN PCU.
--- NOTE | 2021-11-19 07:20 | NUR ---
SHIFT SUMMARY: PT ADMITTED TO FLOOR. PT EDUCATED ABOUT SAFETY AND ORIENTED TO UNIT. PT'S ADMITTING BP LOW, NOTIFIED. MD GAVE VERBAL ORDER TO PAGE IF BP MAP OF 60 OR LOWER AND TO CONTINUE TO MONITOR PT. PT SLEPT MOST OF NIGHT AND STATED SHE WAS COMFORTABLE. HR ELEVATED RANGING FROM 90'S-118. PT EDUCATED ON USUING CALL LIGHT FOR AMBULATION DUE TO LOW BP AND REPORTS OF DIZZINESS.
--- NOTE | 2021-11-19 08:00 | NUR ---
PT BP 105/70. P [address] GRIER, [facility] [place], [facility]
--- NOTE | 2021-11-19 18:23 | NUR ---
PT C/O NOT FEELING WELL, OFF AND ON TODAY. REQUESTED NAUSEA MED AND HEADACHE MED. DONE. DR CONSULTED CARDIOLOGY. NEW MEDS STARTED. PT AMBULATES SBA TO BATHROOM. B/P SOFT, BUT ACCEPTABLE. LAST . B/P CUFF AT WRIST GIVE BETTER READING. DR STARTED ON METOPROLOL THIS SHIFT. PATIENT STATES SHE WANTS NEW HEART TRANSPLANT. NO NEW CONCERNS NOTED. BED IN LOW POSITION, CALL LITE IN REACH, CALLS APPROP
--- NOTE | 2021-11-19 19:11 | NUR ---
PT BEGAN CRYING, CALLING OUT. STATES FEELS HIGH ANX. JUST GAVE ZOFRAN FOR NAUSEA, AND METOPROLOL RECENTLY. STATES FELT ABD FEELS TIGHT. STATES FEELS NOT HAVING BREATHING ISSUES. HAD PAPER STRIPPER GIVE ATIVAN. TOOK NEW B/P. ALMOST SAME PREVIOUS. 118/98 P 106 O2 98% R/A. DANCING INSTRUCTOR STATES S TACH 101. PT HAS BEEN CRYING OUT, YELLING. PT PRESENTS HIGH ANXIETY. DID FINALLY CALM DOWN AND STATES FEELS BETTER AFTER HAVING SOME EMESIS. NO CALL TO
--- NOTE | 2021-11-20 02:48 | NUR ---
SHIFT SUMMARY 36 YR F ADMITTED ON 11/17/21 FOR SOB AND NAUSEA, CHF. FULL CODE. PT HAS BEEN YELLING OUT OFF AND ON FOR MOST OF THIS SHIFT. SHE YELLS THINGS LIKE "WHY ME" AND "I DONT WANT TO FEEL LIKE THIS ANYMORE". SHE HAS ALSO YELLED OUT PROFANITIES BUT APOLOGIZED WHEN CONFRONTED BY THIS NURSE. PT STATES SHE IS NOT IN PAIN BUT RATHER FEELS "WEIRD" IN HER ABDOMEN AREA. SHE HAS BEEN EXTREMELY RESTLESS AND SEEMINGLY UNABLE TO SLEEP. ATIVAN AND ZOFRAN GIVEN PER EMAR AROUND MIDNIGHT. SHE QUIETED DOWN FOR AWHILE BUT CONTINUES TO YELL OUT WHEN SHE IS AGITATED OR NOT FEELING WELL.
[2021-11-20 05:07] LABS: BASOPHILS PERCENT AUTO 1 % (0-2); EOSINOPHILS ABSOLUTE AUTO 0.08 K/mm3 (0.00-0.68); EOSINOPHILS PERCENT AUTO 1 % (0-6); Hematocrit 42.3 % (33.0-51.0); Hemoglobin 13.2 g/dL (11.5-16.0); IMMATURE GRAN ABSOLUTE AUTO 0.02 K/mm3 (0.00-0.10); IMMATURE GRAN PERCENT AUTO 0 % (0-1); LYMPHOCYTES ABSOLUTE AUTO 1.93 K/mm3 (0.84-5.20); LYMPHOCYTES PERCENT AUTO 26 % (21-46); MONOCYTES ABSOLUTE AUTO 0.93 K/mm3 (0.16-1.47); MONOCYTES PERCENT AUTO 13 % (4-13); Mean Corpuscular HGB 27.8 pg (26.0-34.0); Mean Corpuscular HGB Conc 31.2 g/dL (31.5-36.5); Mean Corpuscular Volume 89 fL (80-100); Mean Platelet Volume 10.3 fL (9.1-12.4); NEUTROPHILS ABSOLUTE AUTO 4.26 K/mm3 (1.96-9.15); NEUTROPHILS PERCENT AUTO 58 % (41-73); Platelet Count 346 K/mm3 (150-400); RDW Coefficient Variation 16.1 % (11.7-14.2); RDW Standard Deviation 52.6 fL (35.1-46.3); Red Blood Cell Count 4.74 M/mm3 (3.80-5.20); White Blood Cell Count 7.32 K/mm3 (4.00-11.30)
[2021-11-20 05:58] LABS: Albumin, Blood 3.1 g/dL (3.4-5.0); Anion Gap 10 mmol/L (6-16); Blood Urea Nitrogen 38 mg/dL (8-24); Bun/Creatinine Ratio 33.3 (12.0-20.0); CO2, Blood 27 mmol/L (21-32); Calcium, Blood 9.2 mg/dL (8.5-10.1); Chloride, Blood 96 mmol/L (98-108); Creatinine, Blood 1.14 mg/dL (0.40-1.00); Glomerular Filtration Rate 64 (60-); Glucose, Blood 95 mg/dL (70-99); Phosphorus, Blood 3.9 mg/dL (2.5-4.9); Potassium, Blood 4.2 mmol/L (3.5-5.5); Sodium, Blood 133 mmol/L (136-145)
--- NOTE | 2021-11-20 13:43 | NUR ---
1020- CALLED DR GRIER, NOTIFIED HER THAT PT'S NAUSEA NOT CONTROLLED, THAT SHE IS HAVING EPIGASTRIC PAIN. SHE FEELS GENERALLY UNWELL AND RESTLESS. CHEEKS ARE DARK PURPLE, SATS 94% ROOM AIR, VSS BUT PT IS ANXIOUS, COMPOAINING OF DIZINESS AND BLURRED VISION. DR GRIER ADVISED PLACEMENT OF OXYGEN- ORDERED ADDIDITIONAL PHENERGAN FOR NAUSEA. RN PLACED OXYGEN. WILL CELSA CLOSELY
--- NOTE | 2021-11-20 13:46 | NUR ---
PT TOLERATED LUNCH, CHEEKS ARE ALEX RED AND NOT PURPLE ANYMORE SINCE OXYGEN PLACEMENT. PT IS NOT RESTLESS ANYMORE AND FELL ASLEEP AFTER LUNCH.
[2021-11-20 16:38] LABS: PCO2 Arterial 37.2 mmHg (35-45); PO2 Arterial 147 mmHg (80-100); pH Blood Arterial 7.46 (7.35-7.45)
--- NOTE | 2021-11-20 18:32 | NUR ---
1600 PT CALLING OUT, "SOMETHING IS WRONG, I FEEL AWEFUL". STATES HER EPIGASTRIC PAIN HAS INCREASED INTO HER LEFT CHEST AND HAVING PRESURE. RESTLESS AND COLD, FEARS IMPENDING DOOM. CHEEKS AGAIN DARK PURPLE, UNABLE TO FIND DOPPLER PEDAL PULSES. NOTIFIED DR GRIER WHO CAME TO VIEW PT AT [facility] ORDERED ABG, TROP, BNP AND EKG. VS ARE STABLE 111/84- HR 95-110. FALLS ASLEEP IN MID CONVERSATION. THAN AWAKENS UNABLE TO SIT STILL. ATTEMPTING TO GET OOB, 1:1 CONSTANT OBSERVATION. PT SITTING UP, OXYGEN AT 5L DOWN TO 2L AFTER ABG RESULTS. MEDICATED WITH ATIVAN 0.5 AND PHENERGAN FOR NAUSEA. AWAITING OTHER TEST RESULTS.
--- NOTE | 2021-11-20 18:34 | NUR ---
ASSESSMENT: Pt arrived to U4 around 1800. Pt agitated, restless. Lips and cheaks are cyanotic. Radial pulses weak, pedal pulses absent. LS with crackles in bases, HR reg. PT BP 136/106, biox 100% on 2L per NC. HR 90, NSR with occ PVC. Physician notified of Pt unwell appearance and restlessness. Order for one time dose IV ativan, team primary care physician consult and echo. Plan to move to ICU. Will continue to monitor and treat. Will report off to night RN.
--- NOTE | 2021-11-20 18:40 | NUR ---
PT TRANFERRED TO [facility] 4 AT 5555- REPORT GIVEN TO THIERNO.
--- NOTE | 2021-11-20 19:05 | NUR ---
TRANSFER RECEIVED FROM PCU AT THIS TIME. O2 2L NC. RESPIRATIONS ARE TACYPNEIC. SATS 96-98%. MONITOR SHOWS NSR, RATE 90s. BP STABLE. PT APPEARS DROWSY, BUT ROUSES EASILY. IMPULSIVE AND RESTLESS BEHAVIOR. PULLING ON CORDS AND PULLING OFF OXYGEN AT TIMES. CONFUSED CONVERSATION. ECHO TO BE DONE SOON. SEE SHIFT ASSESSMENT FOR FULL ASSESSMENT.
--- NOTE | 2021-11-20 19:15 | NUR ---
TRANSFERED TO ICU5. REPORT GIVEN TO ELKE BLACKMAN.
--- NOTE | 2021-11-20 20:49 | NUR ---
AGITATION PT WITH INCREASING AGITATION, RESTLESSNESS, AND IMPULSIVENESS. PLACED IN BILATERAL WRIST RESTRAINTS D/T PT PULLING OXYGEN OFF AND PULLING ON IVs AND CORDS. MEDICATED WITH ATIVAN 1MG IV AT THIS TIME.
--- NOTE | 2021-11-20 22:20 | NUR ---
AGITATION PT CONTINUES TO BE AGITATED, RESTLESS, AND IMPULSIVE. UNCOOPERATIVE WITH CARE AT TIMES. REPEATEDLY IS ABLE TO GET OUT OF RESTRAINTS. DR. BROWN NOTIFIED OF CONDITION- NEW ORDER RECEIVED FOR HALDOL 5MG OV X 1.
[2021-11-20 23:56] LABS: U Amphetamine Screen Not Detected; U Barbituate Screen Not Detected; U Benzodiazapine Screen DETECTED; U Buprenorphine Screen Not Detected; U Cannabinoids Screen Not Detected; U Cocaine Screen Not Detected; U Methadone Screen Not Detected; U Methamphetamine Screen Not Detected; U Opiates Screen Not Detected; U Oxycodone Screen Not Detected; U Phencyclidine Screen Not Detected; U Propoxyphene Screen Not Detected
[2021-11-21 04:11] LABS: BASOPHILS ABSOLUTE AUTO 0.09 K/mm3 (0.00-0.23); BASOPHILS PERCENT AUTO 1 % (0-2); EOSINOPHILS ABSOLUTE AUTO 0.02 K/mm3 (0.00-0.68); EOSINOPHILS PERCENT AUTO 0 % (0-6); Hematocrit 42.9 % (33.0-51.0); Hemoglobin 13.7 g/dL (11.5-16.0); IMMATURE GRAN ABSOLUTE AUTO 0.03 K/mm3 (0.00-0.10); IMMATURE GRAN PERCENT AUTO 0 % (0-1); LYMPHOCYTES ABSOLUTE AUTO 1.63 K/mm3 (0.84-5.20); LYMPHOCYTES PERCENT AUTO 23 % (21-46); MONOCYTES PERCENT AUTO 11 % (4-13); Mean Corpuscular HGB 28.2 pg (26.0-34.0); Mean Corpuscular HGB Conc 31.9 g/dL (31.5-36.5); Mean Corpuscular Volume 88 fL (80-100); Mean Platelet Volume 9.9 fL (9.1-12.4); NEUTROPHILS ABSOLUTE AUTO 4.64 K/mm3 (1.96-9.15); NEUTROPHILS PERCENT AUTO 64 % (41-73); NRBC ABSOLUTE 0.04 K/mm3 (0.00-0.02); NRBC Auto 0.6 /100 WBC (0.0-0.2); Platelet Count 318 K/mm3 (150-400); RDW Coefficient Variation 16.1 % (11.7-14.2); RDW Standard Deviation 52.5 fL (35.1-46.3); Red Blood Cell Count 4.86 M/mm3 (3.80-5.20); White Blood Cell Count 7.21 K/mm3 (4.00-11.30)
[2021-11-21 04:25] LABS: Albumin, Blood 3.3 g/dL (3.4-5.0); Anion Gap 9 mmol/L (6-16); Blood Urea Nitrogen 39 mg/dL (8-24); CO2, Blood 30 mmol/L (21-32); Calcium, Blood 9.1 mg/dL (8.5-10.1); Chloride, Blood 96 mmol/L (98-108); Creatinine, Blood 1.26 mg/dL (0.40-1.00); Glomerular Filtration Rate 57 (60-); Glucose, Blood 87 mg/dL (70-99); Phosphorus, Blood 3.7 mg/dL (2.5-4.9); Sodium, Blood 135 mmol/L (136-145)
--- NOTE | 2021-11-21 06:31 | NUR ---
SHIFT SUMMARY PT CONTINUES TO BE AGITATED AND RESTLESS WHEN AWAKE. YELLS OUT/CURSES AT STAFF AT TIMES AND CRIES FREQUENTLY. UP TO BSC Q1H WITH STANDBY ASSIST TO VOID. PT CONTINUES TO BE IMPULSIVE. PT CAN BE UNSTEADY ON FEET. REMAINS ON 2L NC. SATS STABLE. BP STABLE. AFEBRILE. TOLERATES SMALL SIPS OF WATER AND PILLS. VOIDING WITHOUT DIFFICULTY. POWER GLIDE PATENT TO STEVE. CHEEKS CONTINUE TO BE PURPLE, BUT HAS IMPROVED SLIGHTLY. LIPS ARE STILL PURPLISH. WILL REPORT TO ONCOMING RN WHEN AVAILABLE.
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
--- NOTE | 2021-11-21 10:27 | NUR ---
PATIENT WOKE UP WHEN NEEDED TO VOID. PATIENT AMBULATED WELL TO [facility] [place] 1 PERSON ASSIST. PATIENT ASKING QUESTIONS ABOUT WHERE SHE IS AND HER BELONGINGS. PATIENT ABLE TO ANSWER ALL ORIENTATION QUESTIONS CORRECTLY. PATIENT INFORMED THAT SHE WAS VERY ANXIOUS THIS AM AND PATIENT RESPONDED "I WAS REALLY CONFUSED THIS AM". PATIENT CALM AND COOPERATIVE AT THIS TIME. DR. BROWN UPDATED ON PATIENT STATUS. INFORMED THAT SATTING MID TO HIGH 90S ON 1 L NC. INFORMED THAT NIGHT RN STATED THAT PRN ATIVAN DID NOT HELP PATIENT'S ANXIOUSNESS BUT ONLY MADE HER MORE CONFUSED. INFORMED THAT CUSTOMER SERVICES MANAGER RN STATED THAT PRN EHL WORKED BUT ONLY FOR ABOUT AN HOUR AND THAT IT WAS A OT ORDER. INFORMED THAT PATIENT VERY ANXIOUS THIS AM BUT THEN SHORT TIME LATER WAS OBTUNDED AND MINIMALLY RESPONSIVE TO PAINFUL STIMULI. INFORMED THAT PATIENT WAS ASKING FOR A MUSCLE RELAXER THIS AM FOR COMPLAINTS OF "RERE HORSES IN R ABD UNDER BREAST AND ALSO IN LEGS". DOCTOR INFORMED THAT PATIENT STATES SHE GETS THESE "RERE HORSES" AT HOME WELL.
--- NOTE | 2021-11-21 12:50 | NUR ---
PATIENT AFEBRILE. PATIENT CALM AND COOPERATIVE. PATIENT ALERT AND ORIENTED X 4. HR LOW 100S TO 120S. SBP IN THE LOW 100S. BLOOD SUGAR 213. NO COVERAGE GIVEN PATIENT GIVEN TRAY BEFORE NURSE ABLE TO TAKE BLOOD SUGAR. NO OTHER ACUTE CHANGES TO NOTE ON AT THIS TIME. WILL CONTINUE TO MONITOR.
--- NOTE | 2021-11-21 15:51 | NUR ---
PATIENT AFEBRILE. HR IN THE 1-TEENS. SBP IN THE 1-TEENS. BLOOD SUGAR 114; NO COVERAGE INDICATED. NO OTHER ACUTE CHANGES TO NOTE ON AT THIS TIME. WILLC CONTINUE TO MONITOR.
--- NOTE | 2021-11-21 17:13 | NUR ---
DR. STEEN INFORMED OF RHYTHM CHANGE. NO SYMPTOMS. HR IN THE LOW 100S. BP 100/70. EKG ORDER OBTAINED.
--- NOTE | 2021-11-21 18:38 | NUR ---
SHIFT SUMMARY PATIENT ANXIOUS/ AGITATED/ CONFUSED THIS AM. PATIENT VOIDED, WENT BACK TO SLEEP (OBTUNDED AND DIFFICULT TO WAKE); PATIENT THEN WOKE TO VOID AND WAS ALERT AND ORIENTED X 4 AND CALM AND COOPERATIVE. PATIENT INFORMED THAT SHE WAS ANXIOUS THIS AM AND SHE STATED THAT SHE FELT CONFUSED THIS AM. PATIENT AFEBRILE. PATIENT COMPLAINED OF "RERE HORSE PAIN IN R SIDE AND LEGS" THIS AM. PATIENT COMPLAINED ABOUT SHARP PAIN IN L LATERAL CHEST AND RECEIVED PRN MORPHONE FOR. PATIENT COMPLAINED ABOUT NECK PAIN AND GIVEN ICE PACK; PATIENT REPORTED RELIEF. PATIENT DECREASED FROM 1 L NC TO RA; REMAINS SATTING IN MID TO HIGH 90S. PATIENT ST WITH OCCASIONAL PVCS, HR LOW 100S TO 120S. SBP 80S TO 130S. NO BM THIS SHIFT. PATIENT TOLERATED ADA DIET WELL. PATIENT PLACED ON 2 L FLUID RESTRICTION THIS SHIFT BY FALL INTERNSHIP. PATIENT CONTINUES TO RECEIVE SCHEDULED BUMEX. 2200 MLS OF URINE OUT THIS SHIFT. NO CHANGES TO SKIN NOTED. CENTRAL CYANOSIS REMAINS. IVS SALINE LOCKED. BED BATH PERFORMED THIS SHIFT. BLOOD SUGARS 80S TO 200S. PATIENT HAS NO COMPLAINTS AT THIS TIME. BED LOW, CALL LIGHT IN REACH, BED ALARM ON. [facility] SH[facility].
--- NOTE | 2021-11-21 19:45 | NUR ---
ASSUMED CARE PATIENT LYING IN BED WITH EYES CLOSED. BED EXIT ALARM ON. RHYTHM SINUS TACH ON MONITOR W/ RATE 100'S-110'S. PATIENT USED CALL LIGHT TO ALERT STAFF TO BATHROOM NEEDS. WAS A SBA TO BSC. PLEASANT AND COOPERATIVE WITH CARE. CONFUSED AND ASKING HOW SHE GOT TO ICU. LUNG SOUNDS CLEAR T/O AND SPO2 MID TO HIGH 90'S. PATIENT C/O "RERE HORSE" IN RT ARM-RATES 10/10. MEDICATED FOR PAIN PER EMAR. PROVIDED PATIENT WITH 500ML WITH MIX OF WATER AND GATORADE WITH INSTRUCTION THAT THIS IS THE REMAINDER OF FLUID SHE MAY HAVE THROUGH THE SHIFT UNTIL 0600. CALL LIGHT IN PATIENT REACH. REPORT COMPLETED WITH ELKE RODRIGUEZ.
--- NOTE | 2021-11-21 23:22 | NUR ---
VTACH AT APPROX 2315 PT HAD 19 BEAT RUN OF VTACH. PT STS SHE WAS ALMOST ASLEEP AND FELT LIKE SHE "LOST HER BREATHE FOR A SECOND". SHE DENIES HAVING CP. DENIES SOB NOW. BP STABLE. PRIMARY RN NOTIFIED.
--- NOTE | 2021-11-22 05:39 | NUR ---
SHIFT SUMMARY PATIENT HAD ONE EPISODE OF VTACH THIS SHIFT-SEE NOTE "VTACH". PATIENT C/O ONE EPISODE OF NAUSEA AND PAIN ON THE RT RUBS, ARM, AND NECK TWICE. MEDICATED PER EMAR FOR NAUSEA AND PAIN. PATIENT WAS PLEASANT, COOPERATIVE, AND WAS LESS IMPULSIVE. PATIENT TOLERATED DIET AND HAD 500ML OF HALF GATORADE AND HALF WATER DURING SHIFT D/T 2L FLUID RESTRICTION. PATIENT FREQUENTLY USED BSC WITH TOTAL OF 1100ML URINE OUT. PATIENT HAD DIFFICULTY SLEEPING-FELL ASLEEP AROUND 0230 THIS AM.
[2021-11-22 05:47] LABS: Albumin, Blood 2.9 g/dL (3.4-5.0); Anion Gap 7 mmol/L (6-16); Blood Urea Nitrogen 38 mg/dL (8-24); Bun/Creatinine Ratio 34.2 (12.0-20.0); CO2, Blood 31 mmol/L (21-32); Calcium, Blood 8.6 mg/dL (8.5-10.1); Chloride, Blood 97 mmol/L (98-108); Creatinine, Blood 1.11 mg/dL (0.40-1.00); Glomerular Filtration Rate 66 (60-); Glucose, Blood 105 mg/dL (70-99); Phosphorus, Blood 2.9 mg/dL (2.5-4.9); Sodium, Blood 135 mmol/L (136-145)
--- NOTE | 2021-11-22 08:00 | NUR ---
INITIAL ASSESSMENT PATIENT ALERT AND ORIENTED X 4, CALM AND COOPERATIVE. AFEBRILE. NO COMPLAINT OF PAIN. PATIENT SATTING IN 90S ON RA. LUNGS CLEAR. PATIENT IN ST WITH OCCASIONAL PVCS, HR IN THE LOW 100S. SBP IN THE 1-TEENS. PATIENT HAS AICD/ PACER. GI WNL. PATIENT URINE HAS FOUL ODOR AND DOES HAVE FREQUENCY. PATIENT RECEIVING SCHEDULED BUMEX. CENTRAL CYANOSIS NOTED. SCATTERED BRUISES NOTED. IVS FLUSHED AND SALINE LOCKED. BED LOW, CALL LIGHT IN REACH. WILL CONTINUE TO MONITOR PATIENT FREQUENTLY THROUGHOUT SHIFT.
--- NOTE | 2021-11-22 11:51 | NUR ---
DR. STEEN UPDATED ON PATIENT STATUS. INFORMED THAT PATIENT HAD RUN OF VTACH DURING SENIOR SCHEDULER AND APPEARED TO HAVE AICD SPIKE FOLLOWING. INFORMED THAT PATIENT STATED AT THAT TIME SHE "FELT LIKE SHE COULD NOT CATCH HER BREATH" PER SENIOR SCHEDULER RN REPORT.
--- NOTE | 2021-11-22 14:05 | NUR ---
PATIENT AFEBRILE. HR IN THE LOW 100S. SBP IN THE 90S. BLOOD SUGAR OF 97; NO COVERAGE INDICATED. NO OTHER ACUTE CHANGES TO NOTE ON AT THIS TIME.
--- NOTE | 2021-11-22 14:24 | NUR ---
SHIFT SUMMARY PATIENT REMAINED ALERT AND ORIENTED X 4, AFEBRILE. NO COMPLAINTS OF PAIN THIS SHIFT. PATIENT SBA TO TOILET. PATIENT HAS REMAINED SATTING 90% AND GREATER ON RA. PATIENT HAS REMAINED ST WITH OCCASIONAL PVCS. HR IN THE LOW 100S. SBP 90S TO 1-TEENS. PATIENT HAS AICD/ PACER. PATIENT HAD SOFT BM THIS AM. PATIENT TOLERATING ADA DIET WELL AND REMAINS ON 2 L FLUID RESTRICTION. 1800 MLS OF FOUL SMELLING URINE OUT THIS SHIFT. NO CHANGES TO SKIN NOTED. IVS REMAINED SALINE LOCKED. BLOOD SUGAR 90S TO LOW 100S; NO COVERAGE NEEDED. PATIENT HAD COMPLETE BED BATH THIS SHIFT. REPORT GIVEN TO ASSUMING PCU NURSE.
--- NOTE | 2021-11-22 14:45 | NUR ---
PATIENT TRANSFERRED TO PCU, ROOM 6. ALL BELONGINGS SENT WITH PATIENT.
--- NOTE | 2021-11-22 16:59 | NUR ---
SHIFT SUMMARY PT ARRIVED TO UNIT FROM ICU AT APPROXIMATELY 1500. PT ALERT AND ORIENTED. VS STABLE. HR SINUS TACH LOW 100'S. PT DENIES ANY PAIN. PT REQUESTS TO TAKE A SHOWER AND PT ABLE TO DO SO INDEPENDENTLY. PT COMPLAINS OF MILD NAUSEA. PT ORIENTED TO ROOM AND UNIT. WILL CONTINUE TO MONITOR AND REPORT TO ONCOMING RN.
[2021-11-23 04:46] LABS: BASOPHILS ABSOLUTE AUTO 0.07 K/mm3 (0.00-0.23); BASOPHILS PERCENT AUTO 1 % (0-2); EOSINOPHILS ABSOLUTE AUTO 0.16 K/mm3 (0.00-0.68); EOSINOPHILS PERCENT AUTO 2 % (0-6); Hematocrit 40.3 % (33.0-51.0); Hemoglobin 12.8 g/dL (11.5-16.0); IMMATURE GRAN ABSOLUTE AUTO 0.02 K/mm3 (0.00-0.10); IMMATURE GRAN PERCENT AUTO 0 % (0-1); LYMPHOCYTES ABSOLUTE AUTO 1.47 K/mm3 (0.84-5.20); LYMPHOCYTES PERCENT AUTO 22 % (21-46); MONOCYTES ABSOLUTE AUTO 0.91 K/mm3 (0.16-1.47); MONOCYTES PERCENT AUTO 14 % (4-13); Mean Corpuscular HGB 28.4 pg (26.0-34.0); Mean Corpuscular HGB Conc 31.8 g/dL (31.5-36.5); Mean Corpuscular Volume 90 fL (80-100); NEUTROPHILS ABSOLUTE AUTO 4.03 K/mm3 (1.96-9.15); NEUTROPHILS PERCENT AUTO 60 % (41-73); NRBC ABSOLUTE 0.02 K/mm3 (0.00-0.02); NRBC Auto 0.3 /100 WBC (0.0-0.2); Platelet Count 312 K/mm3 (150-400); RDW Coefficient Variation 15.9 % (11.7-14.2); RDW Standard Deviation 52.2 fL (35.1-46.3); White Blood Cell Count 6.66 K/mm3 (4.00-11.30)
[2021-11-23 05:02] LABS: Albumin, Blood 2.9 g/dL (3.4-5.0); Anion Gap 8 mmol/L (6-16); Blood Urea Nitrogen 30 mg/dL (8-24); Bun/Creatinine Ratio 26.5 (12.0-20.0); CO2, Blood 30 mmol/L (21-32); Calcium, Blood 8.4 mg/dL (8.5-10.1); Chloride, Blood 97 mmol/L (98-108); Creatinine, Blood 1.13 mg/dL (0.40-1.00); Glomerular Filtration Rate 65 (60-); Glucose, Blood 99 mg/dL (70-99); Phosphorus, Blood 2.8 mg/dL (2.5-4.9); Sodium, Blood 135 mmol/L (136-145)
--- NOTE | 2021-11-23 06:36 | NUR ---
SHIFT SUMMARY PT IS ALERT AND ORIENTED X4. PT DENIES CHEST PAIN/PRESSURE OR SOB. VITALS HAVE REMAINED STABLE AND IS ON ROOM AIR WITH SATS ABOVE 92%. PT REPORTED FEELING NAUSEAOUS AND WAS MEDICATED PER EMAR. FLUID RESTRICTION LIMIT WAS REACHED AT APROX 2200. SHE IS ABLE TO AMBULATED IN ROOM AND BATHROOM. CALL LIGHT IS WITHIN REACH.
--- NOTE | 2021-11-23 12:47 | NUR ---
CARE NOTE PT REPORTED FEELING SHORT OF BREATH AT APPROX. 1240 WHEN AMBULATING TO BATHROOM. SHE STARTED TO BECOME TEARFUL AND STATED "I DON'T KNOW WHY I KEEP FEELING LIKE I CAN'T BREATH." THIS NURSE CHECKED SPO2 AND IT WAS 96%, PT REQUESTED 0XYGEN THERAPY, 2L GIVEN. LUNGS SOUNDS REMAIN CLEAR AND UNCHANGED FROM PREVIOUS ASSESSMENT. THIS NURSE EDUCATED PT ABOUT CHF SYMPTOMS AND WHY SHE FEELS SHORT OF BREATH. PT ALSO EDUCATED ABOUT DIURETIC THERAPY (BUMEX). PT NOW APPEARS COMFORTABLE. CALL LIGHT IN REACH.
--- NOTE | 2021-11-23 15:27 | NUR ---
CARE NOTE THIS NURSE WENT INTO PT ROOM AT APPROX. 1520 AND PT APPEARED TO BE SLEEPING COMFORTABLY, WHEN THIS NURSE WOKE PT UP TO DO VITALS PT BECAME ANGRY AND STATED "CAN'T YOU JUST FREAKING LEAVE ME ALONE, I JUST GOT COMFORTABLE." THIS NURSE EDUCATED PT ON NEED TO DO Q4 VITALS WITH PCU STATUS. PT WAS STILL ANGRY BUT DID ALOW VITALS TO BE MONITORED. CALL LIGHT WITHIN REACH, WILL CONTINUE TO MONITOR.
--- NOTE | 2021-11-23 17:14 | NUR ---
SHIFT SUMMARY PT IS ALERT AND ORIENTED X 4. AT TIMES SHE IS COOPERATIVE WITH CARE BUT THERE HAS BEEN AN EPISODE WHERE PATIENT WAS ANGRY WITH SLEEP BEING INTERRUPTED, SEE PREVIOUS NOTES. SPO2 HAS REMAINED >93% VIA ROOM AIR AND LUNG SOUNDS HAVE REMAINED CLEAR BUT LATER IN MORNING PT DID COMPLAIN OF FEELING SHORT OF BREATH WHEN AMBULATING TO BATHROOM. SEE PREVIOUS NOTE. 1L 02 PROVIDED FOR SUPPORTIVE MEASURES WHEN PT REPORTED FEELING SHORT OF BREATH. SHE HAS DENIED FEELINGS OF CHEST PAIN BUT REPORTED PAIN IN RIGHT SHOULDER, TYLENOL GIVEN AND HEAT OR COLD THERAPY OFFERED BUT PT DENIED NEED OF HEAT/COLD THERAPY. SHE REPORTED FEELING ANXIOUS BUT DID NOT APPEAR DISTRESSED, THIS NURSE EDUCATED PT ON RELAXATION TECHNIQUES INCLUDING DEEP BREATHING EXERCISES, SPO2 ALSO MONITORED AND WAS >94%. UNINTERRUPTED REST ALSO PROVIDED. SHE REPORTED FEELING ABD PAIN WELL NAUSEA AFTER EATING BREAKFAST, SEE EMAR. NO NAUSEA OR ABD PAIN SINCE REPORTED AND MEDICATION GIVEN. NAV RIOS IN TI IS SALINE LOCKED. SHE HAS BEEN INDEPENDENT IN ROOM. CT PE STUDY DONE AND RESULTS PENDING. NO OTHER ACUTE CHANGES NOTED. PT IS CURRENTLY IN SHOWER WITH ASSISTANCE FROM TOMASZ VAZQUEZ CNA. PT IS STEADY ON HER FEET. WILL CONTINUE TO MONITOR UNTIL REPORT GIVEN.
--- NOTE | 2021-11-23 18:10 | NUR ---
FLUID RESTRICTION NOTE FOR INTAKE DOCUMENTATION, THIS NURSE AND TOMASZ VAZQUEZ DOUBLE CHARTED ONE PO FLUID INTAKE ENTRY, SEE REVISIONS IN DOCUMENTATION. THIS NURSE AND TOMASZ VAZQUEZ ARE IN AGREEMENT WITH PO FLUID INTAKE DOCUMENTATION.
[2021-11-24 04:02] LABS: BASOPHILS ABSOLUTE AUTO 0.08 K/mm3 (0.00-0.23); BASOPHILS PERCENT AUTO 1 % (0-2); EOSINOPHILS ABSOLUTE AUTO 0.08 K/mm3 (0.00-0.68); EOSINOPHILS PERCENT AUTO 1 % (0-6); Hematocrit 40.7 % (33.0-51.0); Hemoglobin 12.7 g/dL (11.5-16.0); IMMATURE GRAN ABSOLUTE AUTO 0.02 K/mm3 (0.00-0.10); IMMATURE GRAN PERCENT AUTO 0 % (0-1); LYMPHOCYTES ABSOLUTE AUTO 1.68 K/mm3 (0.84-5.20); LYMPHOCYTES PERCENT AUTO 25 % (21-46); MONOCYTES ABSOLUTE AUTO 0.91 K/mm3 (0.16-1.47); MONOCYTES PERCENT AUTO 14 % (4-13); Mean Corpuscular HGB 27.7 pg (26.0-34.0); Mean Corpuscular HGB Conc 31.2 g/dL (31.5-36.5); Mean Corpuscular Volume 89 fL (80-100); Mean Platelet Volume 10.1 fL (9.1-12.4); NEUTROPHILS ABSOLUTE AUTO 3.92 K/mm3 (1.96-9.15); NEUTROPHILS PERCENT AUTO 59 % (41-73); NRBC ABSOLUTE 0.02 K/mm3 (0.00-0.02); NRBC Auto 0.3 /100 WBC (0.0-0.2); Platelet Count 293 K/mm3 (150-400); RDW Coefficient Variation 16.2 % (11.7-14.2); RDW Standard Deviation 52.6 fL (35.1-46.3); Red Blood Cell Count 4.59 M/mm3 (3.80-5.20); White Blood Cell Count 6.69 K/mm3 (4.00-11.30)
[2021-11-24 04:16] LABS: Bun/Creatinine Ratio 26.3 (12.0-20.0); Calcium, Blood 8.4 mg/dL (8.5-10.1); Creatinine, Blood 1.14 mg/dL (0.40-1.00)
--- NOTE | 2021-11-24 06:09 | NUR ---
shift summary pt rested well through the night. alert and oriented, able to make needs known. cooperative at times with plan of care. sats >95% on room air. facial coloring/cyanosis continues to improve. tele reads nsr/st. diuresing. voiding to toilet. pain x1. vss. call light within reach, bed in lowest posiiton. will continue to monitor.
--- NOTE | 2021-11-24 17:27 | NUR ---
SHIFT SUMMARY; ASSUMED CARE AT 0700. A/A/OX4. INDEPENDANT IN ROOM. VSS DURING SHIFT. PLEASANT AND COOPERATIVE WITH CARE. AMBULATES IN HALLWAY TODAY WITH CONTROL CLERK AUDITING. REPORTS FEELING SOB DURING AMBULATION. RETURNED TO ROOM AND O2 SAT WAS 87%. RECOVERED TO MID 90'S WITHIN A COUPLE MINUTES ON ROOM AIR. MEDICATED DURING SHIFT PER EMAR. NO ACUTE MEDICAL CHANGES, WILL CONTINUE TO MONITOR AND TREAT UNTIL CHANGE OF SHIFT.
[2021-11-25 05:22] LABS: Bun/Creatinine Ratio 24.8 (12.0-20.0); Calcium, Blood 8.6 mg/dL (8.5-10.1); Creatinine, Blood 1.09 mg/dL (0.40-1.00)
--- NOTE | 2021-11-25 06:06 | NUR ---
NOC SHIFT SUMMARY PT ORIENTED X4 BUT EXCEEDINGLY ANXIOUS OVERNIGHT. COMPLAINTS OF ITCHING ALL OVER, GENERALIZED PAIN, NAUSEA AND ABD PAIN. PRNS GIVEN, REPOSITIONED, AND HEAT APPLIED. PT EATING FREQUENTLY AND REQUESTING LIQUIDS ABOVE 2L FLUID RESTRICTION. EDUCATED ON IMPORTANCE OF ADHERENCE. VERBALIZES UNDERSTANDING WILL CONTINUE TO MONITOR AND PASS ON TO DAY RN.
[2021-11-25 11:30] LABS: U Amphetamine Screen Not Detected; U Barbituate Screen Not Detected; U Benzodiazapine Screen DETECTED; U Buprenorphine Screen Not Detected; U Cannabinoids Screen Not Detected; U Cocaine Screen Not Detected; U Methadone Screen Not Detected; U Methamphetamine Screen Not Detected; U Opiates Screen Not Detected; U Oxycodone Screen Not Detected; U Phencyclidine Screen Not Detected; U Propoxyphene Screen Not Detected
[2021-11-25] MEDS ORDERED: BUSP5 PO (16:55)
[2021-11-25] MEDS ORDERED: Lisinopril2.5 MG PO (16:55)
--- NOTE | 2021-11-25 17:07 | NUR ---
DISCHARGED INSTRUCTIONS REVIEWED WITH PT WITH CLEAR UNDERSTANDING. MEDS FAXED TO [facility]. DC'D TO HOME VIA WHEELCHAIR IN NO ACUTE DISTRESS.
== END 2021-11-25 17:12 | disposition home or self-care (01) | DRG 640 ==
LOC: ER 16:16 → PCU 16:17 → ICUE 16:17 → MEDS 16:17 → ERHOLD 16:17 → PCU 11-18 02:04 → MEDS 11-18 22:42 → PCU 11-20 17:44 → ICUE 11-20 19:22 → PCU 11-22 14:56
PROVIDERS: Internal Medicine; Internal Medicine Critical Care Medicine; Physician Assistant; ADMIT Internal Medicine
DX: E86.9 Volume depletion, unspecified (principal); G92.8 Other toxic encephalopathy; N17.9 Acute kidney failure, unspecified; I42.0 Dilated cardiomyopathy; I50.22 Chronic systolic (congestive) heart failure; Z68.41 Body mass index [BMI] 40.0-44.9, adult; E86.0 Dehydration; I73.89 Other specified peripheral vascular diseases; F41.9 Anxiety disorder, unspecified; F31.9 Bipolar disorder, unspecified; T42.4X5A Adverse effect of benzodiazepines, initial encounter; E11.9 Type 2 diabetes mellitus without complications; J44.9 Chronic obstructive pulmonary disease, unspecified; E66.01 Morbid (severe) obesity due to excess calories; F15.10 Other stimulant abuse, uncomplicated; I51.3 Intracardiac thrombosis, not elsewhere classified; K59.09 Other constipation; I11.0 Hypertensive heart disease with heart failure; I48.91 Unspecified atrial fibrillation; F17.210 Nicotine dependence, cigarettes, uncomplicated; I08.1 Rheumatic disorders of both mitral and tricuspid valves; I95.9 Hypotension, unspecified; E87.6 Hypokalemia; Z98.890 Other specified postprocedural states; Z98.51 Tubal ligation status; Z95.810 Presence of automatic (implantable) cardiac defibrillator; Z87.01 Personal history of pneumonia (recurrent); Z88.0 Allergy status to penicillin; Z88.8 Allergy status to other drugs, medicaments and biological substances; Z86.711 Personal history of pulmonary embolism; Z79.01 Long term (current) use of anticoagulants; Z79.899 Other long term (current) drug therapy; Z79.84 Long term (current) use of oral hypoglycemic drugs; Z79.51 Long term (current) use of inhaled steroids; Z86.718 Personal history of other venous thrombosis and embolism
CPT/HCPCS: 36415; 36600; 71045; 71046; 71260; 80048; 80053; 80069; 82803; 82947; 83690; 83735; 83880; 84484; 84703; 85025; 85379; 93005; 93010; 93282; 94640; 94664; 94760; 94761; 94762; 96374; 96376; 99285-25; A9270; C1751; C8929; G0378; G0480; J1630; J2060; J2270; J2405; J2550; Q9967

== ENCOUNTER 2021-12-14 15:53 | Inpatient (IN) | payer OTHER | END 2021-12-24 13:40 | disposition home or self-care (01) | DRG 682 | LOC: ER 15:53 → MEDS 15:54 → PCU 12-16 11:34 → ICUE 12-16 22:43 → PCU 12-22 12:22 | PROVIDERS: ADMIT Internal Medicine | PROC: 3E033XZ Introduction of Vasopressor into Peripheral Vein, Percutaneous Approach (ICD-10-PCS; principal; 2021-12-16) | PROC: 05HF33Z Insertion of Infusion Device into Left Cephalic Vein, Percutaneous Approach (ICD-10-PCS; 2021-12-16) | DX: N17.9 Acute kidney failure, unspecified (principal); R57.0 Cardiogenic shock; I13.0 Hypertensive heart and chronic kidney disease with heart failure and stage 1 through stage 4 chronic kidney disease, or unspecified chronic kidney disease; Z68.41 Body mass index [BMI] 40.0-44.9, adult; E87.1 Hypo-osmolality and hyponatremia; D68.9 Coagulation defect, unspecified; E66.2 Morbid (severe) obesity with alveolar hypoventilation; I42.0 Dilated cardiomyopathy; I42.7 Cardiomyopathy due to drug and external agent; I50.42 Chronic combined systolic (congestive) and diastolic (congestive) heart failure; F41.9 Anxiety disorder, unspecified; T43.625A Adverse effect of amphetamines, initial encounter; D50.9 Iron deficiency anemia, unspecified; K76.0 Fatty (change of) liver, not elsewhere classified; M62.838 Other muscle spasm; N18.9 Chronic kidney disease, unspecified; K59.09 Other constipation; E83.51 Hypocalcemia; I48.91 Unspecified atrial fibrillation; E87.6 Hypokalemia; E11.22 Type 2 diabetes mellitus with diabetic chronic kidney disease; M25.571 Pain in right ankle and joints of right foot; Z86.711 Personal history of pulmonary embolism; Z98.51 Tubal ligation status; Z95.810 Presence of automatic (implantable) cardiac defibrillator; Z98.891 History of uterine scar from previous surgery; Z88.0 Allergy status to penicillin; Z88.8 Allergy status to other drugs, medicaments and biological substances; Z79.01 Long term (current) use of anticoagulants; Z79.899 Other long term (current) drug therapy ==

== ENCOUNTER 2022-02-06 04:15 | Inpatient (IN) | payer OTHER ==
[~2022-02-06] VITALS: Ht 160 cm; Wt 137.6 kg
[~2022-02-06 04:15] MED LIST changes: +BUSP5 PO; +DOC250 PO; +JARDIANCE25 MG PO; +K-TAB ER20 ME1 PO; +Senna-Extra17.2 MG PO
[2022-02-06 04:29] LABS: BASOPHILS ABSOLUTE AUTO 0.09 K/mm3 (0.00-0.23); BASOPHILS PERCENT AUTO 0 % (0-2); EOSINOPHILS ABSOLUTE AUTO 0.03 K/mm3 (0.00-0.68); EOSINOPHILS PERCENT AUTO 0 % (0-6); Hematocrit 47.8 % (33.0-51.0); Hemoglobin 15.1 g/dL (11.5-16.0); IMMATURE GRAN ABSOLUTE AUTO 0.28 K/mm3 (0.00-0.10); IMMATURE GRAN PERCENT AUTO 1 % (0-1); LYMPHOCYTES ABSOLUTE AUTO 0.51 K/mm3 (0.84-5.20); LYMPHOCYTES PERCENT AUTO 2 % (21-46); MONOCYTES ABSOLUTE AUTO 0.73 K/mm3 (0.16-1.47); MONOCYTES PERCENT AUTO 3 % (4-13); Mean Corpuscular HGB 26.9 pg (26.0-34.0); Mean Corpuscular HGB Conc 31.6 g/dL (31.5-36.5); Mean Corpuscular Volume 85 fL (80-100); Mean Platelet Volume 10.2 fL (9.1-12.4); NEUTROPHILS ABSOLUTE AUTO 21.39 K/mm3 (1.96-9.15); NEUTROPHILS PERCENT AUTO 93 % (41-73); NRBC ABSOLUTE 0.18 K/mm3 (0.00-0.02); NRBC Auto 0.8 /100 WBC (0.0-0.2); Platelet Count 262 K/mm3 (150-400); RDW Coefficient Variation 30.2 % (11.7-14.2); RDW Standard Deviation 94.3 fL (35.1-46.3); Red Blood Cell Count 5.62 M/mm3 (3.80-5.20); White Blood Cell Count 23.03 K/mm3 (4.00-11.30)
[2022-02-06 04:49] LABS: Albumin, Blood 2.4 g/dL (3.4-5.0); Albumin/Globulin Ratio 0.5 (0.8-1.8); Bun/Creatinine Ratio 39.4 (12.0-20.0); Calcium, Blood 8.9 mg/dL (8.5-10.1); Creatinine, Blood 2.18 mg/dL (0.40-1.00); Globulin, Blood 4.8 g/dL (2.2-4.0); Potassium, Blood 4.9 mmol/L (3.5-5.5); Total Protein, Blood 7.2 g/dL (6.4-8.2)
[2022-02-06 04:59] LABS: Base Excess Venous -9.4 mmol/L; Bicarbonate Venous 15.9 mmol/L (24.0-30.0); PCO2 Venous 62.6 mmHg (38-42)
[2022-02-06 05:03] LABS: pH Blood Venous 7.11 (7.34-7.37)
[2022-02-06 05:39] LABS: Influenza A, PCR NEGATIVE (NEGATIVE); Influenza B, PCR NEGATIVE (NEGATIVE); Resp Syncytial Virus, PCR NEGATIVE (NEGATIVE); SARS-Cov-2 (COVID-19) PCR, MMC NEGATIVE (NEGATIVE)
[2022-02-06 06:51] LABS: Source, Urine Foley catheter
[2022-02-06 06:53] LABS: International Normalized Ratio 2.41; Prothrombin Time Results 23.9 Sec (9.7-11.5)
[2022-02-06 07:04] LABS: Blood, Urine 3+ (Neg); Glucose Qualitative, Urine Neg (Neg); Ketones, Urine 1+ (Neg); Leukocyte Esterase, Urine 1+ (Neg); Nitrite, Urine Pos (Neg); Protein, Urine 2+ (Neg); Urobilinogen, Urine 3+ (Normal)
[2022-02-06 07:14] LABS: Bilirubin, Urine 2+ (Neg)
[2022-02-06 07:15] LABS: Appearance, Urine Hazy (Clear); Color, Urine Yellow (P-Yellow)
[2022-02-06 07:16] LABS: Bacteria Few /hpf; Red Blood Cells, Urine 0-2 /hpf (0-2); Squamous Epithelial Cells Few /hpf (Few)
[2022-02-06 07:19] LABS: U Amphetamine Screen DETECTED; U Barbituate Screen Not Detected; U Benzodiazapine Screen Not Detected; U Buprenorphine Screen Not Detected; U Cannabinoids Screen Not Detected; U Cocaine Screen Not Detected; U Methadone Screen Not Detected; U Methamphetamine Screen DETECTED; U Opiates Screen Not Detected; U Oxycodone Screen Not Detected; U Phencyclidine Screen Not Detected; U Propoxyphene Screen Not Detected
--- NOTE | 2022-02-06 09:00 | NUR ---
INITIAL ASSESSMENT PATIENT ARRIVED FROM ER TO ICU AT 0817. PATIENT THRASHING AROUND, AGITATED, TRYING TO PULL BIPAP OFF. PATIENT NOT FOLLOWING ANY COMMANDS AT THIS TIME. PATIENT MOANS/ MAKES SOUND OCCASIONALLY. PATIENT EXTREMITIES STRONG. PUPILS 7+ IN SIZE AND REACT SLUGGISHLY TO LIGHT. SCLERA REDDENED/ JAUNDICED AND EDEMATOUS. PATIENT AFEBRILE. PATIENT TACHYPNEIC. PATIENT ON BIPAP AT 16/8 AND 30% FIO2. MODERATE AMOUNT OF FROTHY, YELLOW/ PINK SPUTUM COMING OUT FROM MOUTH. PATIENT IN ST, HR IN THE 130S. SBP IN THE 80S. PATIENT HAS AICD. CAP REFILL GREATER THAN 3 SECONDS IN R FOOT TOES; LESS THAN 3 SECONDS IN OTHER EXTREMITIES. RADIAL PULSES 1+ IN STRENGTH. BILAT D. PEDIS PULSES ABSENT. BILAT TIBIAL PULSES DOPPLER. ANASARCA NOTED. ABD MODERATELY DISTENDED, SOFT, WITH HYPOACTIVE BOWEL SOUNDS NOTED. DATE OF LAST BM UNKNOWN. PATIENT NPO AT THIS TIME. BENNETT PLACED IN ER; DRAINING MINIMAL AMOUNT OF DARK TEA COLORED URINE. WOUNDS NOTED TO L LATERAL ABD/ SIDE, MARQUISE/ GROIN FOLDS, R FOOT, L MIDDLE FINGER, R POINTER FINGER, BILAT CALFS. WOUND CARE PERFORMED AND PICTURES TAKEN. WOUND TO L CALF VERY FOUL SMELLING. SKIN IS DUSKY, CYANOTIC ALL OVER, INCLUDING FACE. FACE ALSO YO IN COLOR. BED LOW, CALL LIGHT IN REACH. WILL CONTINUE TO MONITOR PATIENT FREQUENTLY THROUGHOUT SHIFT.
--- NOTE | 2022-02-06 10:13 | NUR ---
FIO2 INCREASED TO 50% TO KEEP O2 SATS 90% AND GREATER.
[2022-02-06 12:42] LABS: Base Excess Venous -6.4 mmol/L; Bicarbonate Venous 18.2 mmol/L (24.0-30.0); PCO2 Venous 71.6 mmHg (38-42); pH Blood Venous 7.12 (7.34-7.37)
--- NOTE | 2022-02-06 13:00 | NUR ---
PATIENT AFEBRILE. PATIENT SLEEPING SOUNDLY ON PRECEDEX AT 1.4 MCG/ KG/ HOUR. HR 120S TO 130S. SBP 80S TO 90S. PATIENT SATTING 90% AND GREATER ON BIPAP AT 20/ 8 AND 45% FIO2. BILAT D. PEDIS PULSES NOW DOPPLERABLE. CAP REFILL NOW LESS THAN 3 SECONDS IN R FOOT. PATIENT OLIGURIC; DR. SORIANO AWARE. NO OTHER ACUTE CHANGES TO NOTE ON AT THIS TIME. WILL CONTINUE TO MONITOR.
--- NOTE | 2022-02-06 15:30 | NUR ---
Attempted to reach NOK listed-granddad, Randolph Milan, by phone. VM left at both numbers listed on face sheet. No other contact listed on face sheet or found in chart. RN states son brought pt's purse to her room but we do not know oldest child's age or contact info at this time. Will work on this more tomorrow. Pt remains sedated, on bipap, precidex, pressors in ICU at this time.
[2022-02-06 16:34] LABS: Base Excess Venous -7.4 mmol/L; Bicarbonate Venous 17.5 mmol/L (24.0-30.0); PCO2 Venous 69.7 mmHg (38-42); pH Blood Venous 7.11 (7.34-7.37)
[2022-02-06 17:18] LABS: Albumin, Blood 1.9 g/dL (3.4-5.0); Albumin/Globulin Ratio 0.5 (0.8-1.8); Bilirubin, Total 7.1 mg/dL (0.1-1.0); Bun/Creatinine Ratio 31.4 (12.0-20.0); Calcium, Blood 7.9 mg/dL (8.5-10.1); Creatinine, Blood 2.64 mg/dL (0.40-1.00); Globulin, Blood 3.8 g/dL (2.2-4.0); Total Protein, Blood 5.7 g/dL (6.4-8.2)
[2022-02-06 17:29] LABS: PCO2 Arterial 48.2 mmHg (35-45); PO2 Arterial 95.6 mmHg (80-100); pH Blood Arterial 7.22 (7.35-7.45)
--- NOTE | 2022-02-06 18:30 | NUR ---
DR. SORIANO AND THIS NURSE TRIED TO CALL PATIENT'S CONTACT (MELY- GRANDFATHER) TO UPDATE ON PATIENT STATUS. MESSAGE LEFT BY NURSE. MELY CALLED BACK AND UPDTAED ON PATIENT STATUS. MELY STATED THAT PATIENT'S OLDEST SON IS 17 YEARS OF AGE AND THAT ALL SONS BESIDES ONE LIVES WITH THE FATHER IN [place]. THE OTHER ONE SON LIVES WITH MELY "FOR NOW". MELY INFORMED MULTIPLE TIMES THAT PATIENT ON BREATHING MACHINE BUT APPEARS TO REMAIN NOT COMPREHENDING ASKED IF PATIENT COULD SPEAK TO OLDEST SON. MELY STATED HE WOULD HAVE THE OLDEST SON CALL US FOR AN UPDATE.
--- NOTE | 2022-02-06 19:15 | NUR ---
ASSUMED CARE OF PT, REPORT RECEIVED. GTTS VERIFIED WITH OFFGOING RN, PROPOFOL AT 25 MCG/KG/MIN, LEVOPHED AT 12 MCG/MIN, VASOPRESSIN AT 0.04 UNITS/MIN, ORDERS FROM DR SORIANO AT THIS TIME FOR SECOND FLUID BOLUS. PT IS NOTED RESTING QUIETLY, VENTILATOR AC/VC 20/500/5.0/40% AND INSPIRATORY TIME OF 0.80. ETT 24 CM AT TEETH AND SECURE. UPPER LOBES CLEAR BILAT, MARKEDLY DIM MID TO LOWER. PRURULENT/WALTER SPUTUM NOTED IN IN LINE SUCTION TUBING FROM PRIOR SUCTIONING. PT IS NOTED TO SPONT MOVE FEET AND ARMS BILAT HOWEVER IS CALM AND TOLERATING VENT WELL AT THIS TIME.
--- NOTE | 2022-02-06 19:21 | NUR ---
SHIFT SUMMARY PATIENT ARRIVED TO ICU THIS AM FROM ER. PATIENT THRASHING AROUND, AGITATED AND TRYING TO REMOVE BIPAP. PATIENT RESTRAINED AND PRECEDEX STARTED. PRECEDEX AT MAX RATE HELPED FOR SOME TIME WITH AGITATION BUT PATIENT STARTED THRASHING AROUND IN BED AGAIN THIS AFTERNOON. DR. SORIANO ASKED TO COME TO ROOM AND VIEW PATIENT. VBG PERFORMED AND WAS WORSE THAN THE PREVIOUS ONE. EKG PERFORMED. PATIENT INTUBATED AT 1651. PATIENT STARTED ON PROPOFOL AT 35 MCG/ KG/ MINUTE AND PRECEDEX TURNED OFF. PATIENT GIVEN 1 L NS BOLUS. PATIENT ONLY HAD 40 MLS OF DARK TEA COLORED URINE OUT THIS SHIFT. URINE NOTED TO START PICKING UP SOME AFTER NS BOLUS. PATIENT REMAINED UNABLE TO FOLLOW ANY COMMANDS THIS SHIFT. SCLERA REMAIN JAUNDICED, REDDENED AND EDEMATOUS. PATIENT ON ACVC+ 20, TV 500, TI 0.80, PEEP 5 AND 40% FIO2. MODERATE AMOUNT OF THICK, BROWN/ YELLOW SPUTUM SUCTIONED FROM ETT. SPUTUM CULTURE SENT TO LAB. PATIENT REMAINED IN ST, HR 1-TEENS TO 140S. SBP 60S TO 140S. PATIENT PLACED ON LEVOPHED, CURRENTLY AT 12 MCG/ HOUR, VASOPRESSIN, AT 0.04 UNITS/ MINUTE. SKIN REMAINS CYANOTIC AND DUSKY. PATIENT REMAINS EDEMATOUS. PULSES DOPPLERED IN BILAT FEET. NO BM THIS SHIFT. OG PLACED AND TO LIS. WOUND CARE PERFORMED TWICE THIS SHIFT. WOUND CONSULT PLACED THIS SHIFT. PICTURES TAKEN AND PLACED IN CHART. PROPOFOL AT 25 MCG/ KG/ HOUR. VANCO STARTED THIS SHIFT. PATIENT ALSO RECEIVING CEFEPIME. ECHO PERFORMED AT END OF SHIFT. BLOOD SUGARS 1-TEENS TO 120S. PATIENT APPEARS COMFORTABLE AT THIS TIME. BED LOW, LIGHT IN REACH. REPORT GIVEN TO ASSUMING HEALTH CONSULTANT NURSE.
[2022-02-06 20:26] LABS: International Normalized Ratio 2.07; Prothrombin Time Results 20.7 Sec (9.7-11.5)
--- NOTE | 2022-02-06 23:25 | NUR ---
V-TACH PT WITH 11 BEAT RUN OF V-TACH, SEE STRIP, RESOLVED BEFORE THIS RN ARRIVED TO ROOM, ASSESSMENT UNCHANGED FROM PREV.
[2022-02-07 04:09] LABS: Base Excess Venous -9.5 mmol/L; Bicarbonate Venous 17.9 mmol/L (24.0-30.0); PCO2 Venous 31.5 mmHg (38-42); pH Blood Venous 7.33 (7.34-7.37)
[2022-02-07 04:18] LABS: BASOPHILS ABSOLUTE AUTO 0.04 K/mm3 (0.00-0.23); BASOPHILS PERCENT AUTO 0 % (0-2); EOSINOPHILS ABSOLUTE AUTO 0.05 K/mm3 (0.00-0.68); EOSINOPHILS PERCENT AUTO 0 % (0-6); Hematocrit 43.3 % (33.0-51.0); Hemoglobin 13.8 g/dL (11.5-16.0); IMMATURE GRAN ABSOLUTE AUTO 0.16 K/mm3 (0.00-0.10); IMMATURE GRAN PERCENT AUTO 1 % (0-1); LYMPHOCYTES ABSOLUTE AUTO 0.62 K/mm3 (0.84-5.20); LYMPHOCYTES PERCENT AUTO 4 % (21-46); MONOCYTES ABSOLUTE AUTO 0.73 K/mm3 (0.16-1.47); MONOCYTES PERCENT AUTO 5 % (4-13); Mean Corpuscular HGB 26.5 pg (26.0-34.0); Mean Corpuscular HGB Conc 31.9 g/dL (31.5-36.5); Mean Corpuscular Volume 83 fL (80-100); Mean Platelet Volume 9.8 fL (9.1-12.4); NEUTROPHILS ABSOLUTE AUTO 14.39 K/mm3 (1.96-9.15); NEUTROPHILS PERCENT AUTO 90 % (41-73); NRBC ABSOLUTE 0.17 K/mm3 (0.00-0.02); NRBC Auto 1.1 /100 WBC (0.0-0.2); Platelet Count 190 K/mm3 (150-400); RDW Coefficient Variation 28.9 % (11.7-14.2); RDW Standard Deviation 85.8 fL (35.1-46.3); Red Blood Cell Count 5.21 M/mm3 (3.80-5.20); White Blood Cell Count 15.99 K/mm3 (4.00-11.30)
[2022-02-07 04:31] LABS: Albumin, Blood 1.9 g/dL (3.4-5.0); Albumin/Globulin Ratio 0.4 (0.8-1.8); Bilirubin, Total 8.2 mg/dL (0.1-1.0); Bun/Creatinine Ratio 32.6 (12.0-20.0); Calcium, Blood 8.1 mg/dL (8.5-10.1); Creatinine, Blood 2.67 mg/dL (0.40-1.00); Globulin, Blood 4.4 g/dL (2.2-4.0); International Normalized Ratio 1.84; Phosphorus, Blood 5.8 mg/dL (2.5-4.9); Potassium, Blood 5.2 mmol/L (3.5-5.5); Prothrombin Time Results 18.6 Sec (9.7-11.5); Total Protein, Blood 6.3 g/dL (6.4-8.2)
--- NOTE | 2022-02-07 06:47 | NUR ---
Assumed care of PT at approximately 0250. Pt sedated and ventilated via ETT. Reassessement findings agree with previous risk assessment analyst. Propofol infusing at 35 mcg/kg/min, Levophed at 20 mcg/min, Vasopressin 0.04 units/min, NS tko. Heparin started, rate per pharmacy, see emar. Dr. Franco called this am for increasing vasopressor requirements and critical lab values, dobutamine started at 2.5 mcg/kg/min. Buodreaux in place, 1200mls out this am. See assessments for further details. Report given to suhas BEDOYA.
--- NOTE | 2022-02-07 08:00 | NUR ---
INITIAL ASSESSMENT PATIENT INTUBATED AND SEDATED. PATIENT RESPONDING TO NOXIOUS STIMULI BY GRIMACING FACE AND MOVING EXTREMITIES. PATIENT HAS GOOD STRENGTH IN ALL EXTREMITIES. SCLERA JAUNDICED AND RED. PATIENT HAS CORE TEMP OF 100.5 DEGREES FAHRENHEIT. NO SIGNS OF PAIN NOTED AT THIS TIME. PATIENT ON ACVC+ 20, TV 500, TI 0.80, PEEP 5 AND FIO2 35%. LUNGS CLEAR/ DIMINISHED. PATIENT HAS THICK, WALTER SPUTUM FROM ETT. PATIENT IN ST, HR 120S TO 130S. SBP 80S TO 90S. DOBUTAMINE INFUSING AT 20 MCG/ KG/ MINUTE, LEVOPHED AT 20 MCG/ MINUTE, VASOPRESSIN AT 0.04 UNITS/ MINUTE. EXTREMITIES WARM BUT FINGERS AND TOES DUSKY. PULSES DOPPLER IN BILAT FEET. PATIENT HAS AICD. ANASARCA NOTED. ABD DISTENDED, FIRM, WITH HYPOACTIVE BOWEL SOUNDS NOTED. OG TO LIS; DRAINING SOME DARK GREEN LIQUID. BENNETT IN PLACE, DRAINING ESDRAS COLORED URINE. WOUNDS SCATTERED ALL OVER BODY; PICS IN CHART. PROPOFOL AT 35 MCG/ KG/ MINUTE. HEPARIN INFUSING AT 15 UNITS/ KG/ HOUR. BED LOW, CALL LIGHT IN REACH. WILL CONTINUE TO MONITOR PATIENT FREQUENTLY THROUGHOUT SHIFT.
--- NOTE | 2022-02-07 08:47 | NUR ---
DR. BROWN CALLED AND INFORMED THAT PATIENT'S MAPS 40S TO 50S DESPITE PATIENT BEING ON VASOPRESSIN, LEVOPHED AT 20 MCG/ MINUTE AND DOBUTAMINE AT 20 MCG/ KG/ MINUTE. INFORMED THAT PROPOFOL DECREASED SLIGHTLY TO SEE IF WOULD HELP AND PATIENT IS NOW STIRRING IN ROOM. INFORMED THAT HR IN THE 130S. STATED TO START EPI DRIP AND THAT HE WOULD BE HERE SOON.
--- NOTE | 2022-02-07 10:23 | NUR ---
DR. BROWN INFORMED THAT MAP IN THE 50S WITH EPI AT 6. DR. BROWN STATED TO TAKE EPI UP TO MAX OF 10 MCG/ MINUTE AND LEVOPHED UP TO MAX OF 30 MCG/ MINUTE. STATED HE WOULD GIVE PATIENT'S CONTACT, WHICH IS GRANDFATHER, A CALL.
[2022-02-07 10:59] LABS: Source, Urine Foley catheter
[2022-02-07 11:03] LABS: Bilirubin, Urine Neg (Neg); Blood, Urine 3+ (Neg); Glucose Qualitative, Urine 3+ (Neg); Ketones, Urine Neg (Neg); Leukocyte Esterase, Urine Neg (Neg); Nitrite, Urine Neg (Neg); Protein, Urine Neg (Neg); Urobilinogen, Urine NORM (Normal)
--- NOTE | 2022-02-07 11:18 | NUR ---
Case conference with ICU IDT meeting at 10 am. Unable to find contact information for pt's SO or sons. Oldest of 6 sons is 17 and unable to be proxy decision maker. Gt was reached by phone yesterday renate but he did not appear to understand the gravity of the pt's medical crisis or her extremely poor prognosis. Dr Garner was able to reach the granddad after our meeting. He is our only contact for NOK but did not want to speak with Dr. was able to inform gt, Randolph Milan, that pt is dying. He did not confirm, but indicated he may be in to hospital later. I attempted to reach pt's SO or a son, who may have pt's cell phone at the number listed for pt but only reached an unidentified VM. I did not leave a message. Pt is currently on four pressors, at max dosing, ventilated, requiring adjustment of sedation as she did not tolerate precidex yesterday per . Pt has declined signficantly in the past 24 hours despite maximal therapy and agressive tx. Echo done this weekend shows decline in EF from prev 20-25% to 10-15% currently. Pal [facility] to remain available to staff and family to assist as needed. If gt arrives, we will ask for contact information for pt's oldest son if he has not already contacted him prior to arrival, for update on pt's declining condition.
[2022-02-07 11:23] LABS: Appearance, Urine Hazy (Clear); Color, Urine Yellow (P-Yellow)
[2022-02-07 11:24] LABS: Bacteria Rare /hpf; Hyaline Casts 0-2 /lpf (0-2); Squamous Epithelial Cells Few /hpf (Few)
--- NOTE | 2022-02-07 12:00 | NUR ---
PATIENT HAS CORE TEMP OF 100.0 DEGREES FAHRENHEIT. HR 130S TO 140S. SBP IN THE 80S. DOBUTAMINE AT 20 MCG/ KG/ MINUTE, EPINEPHRINE AT 10 MCG/ MINUTE, LEVOPHED AT 20 MCG/ MINUTE, VASOPRESSIN AT 0.04 UNITS/ MINUTE, PROPOFOL OFF, VERSED AT 6 MG/ HOUR AND DILAUDID DRIP AT 0.5 MG/ HOUR. FIO2 ON VENT DOWN FROM 35% TO 30%. FAMILY HAS BEEN IN AND OUT ALL DAY SEEING PATIENT AFTER GRANDFATHER CONTACTED THIS AM BY DR. BROWN.
--- NOTE | 2022-02-07 12:30 | NUR ---
CHANGE IN CODE STATUS TO DNR - I returned to ICU when multiple family members arrived. I met with pt's Lorena, Randolph Hoang, pt's sons #2(CHUCKY) and #3 in hallway outside of ICU. I then met with CARMEN-Efrem at bedside (also in room was pt's youngest son). I explained for family pt's current status and events since admission, extremely poor prognosis despite full agressive tx at this time. Proxy stated he understood and that his of heart failure and when I asked how he would want us to tx cardiac arrest or further failure he stated he did not want us to do CPR or rescusitative efforts. Time spent between two family groups for support and providing information. Pt's dad was in ICU briefly but due to tensions among visitors dad left and was waiting in car in parking lot. Son's appear calm, sad, and behave extremely maturely for their young years. Chucky stated they knew this day would come but did not anticipate it this soon. Lorena tells the story of raising pt with his after he retrieved her from a local police department as an infant when her parent(s) had been arrested. Lorena is close to all 6 of his great grandsons and sees them regularly. Randolph is tearful, sitting in wheelchair in hallway with two grandsons at his side. He states he does not feel like he can go back in to pt's room again. Grandson states one of them will stay with Randolph t/o the day. Older Sons did not have a good understanding of what heart failure meant or what all was happening with their mom. Time spent explaining, in simple terms, pt's current heart, respiratory failure and declining status, what treatments have been and are currently being provided for support. I then went back to bedside to speak with SO for similar conversation and support. He has pt's youngest son, Miguelangel (approx 6 years old) at his side. Beatrice is tearful and explains that he and the three sons he is raising had recently moved out of the home he shared with pt due to pt's cont drug use. He states he is surprised that Libby has survived as long as she has. He asked about next steps and "Are we just waiting for all of her family to be able to see her?". I explained that Randolph is Libby's medical proxy, despite wanting her sons to decide (all are under age). Efrem is in agreement with this and Randolph's decision to make Libby a DNR at this time. I told both Efrem and Randolph separately that if at any time family wanted us to de-escalate care or extubate as a withdrawl of agressive tx to let her nurses and providers know and we would transition pt to comfort care. Efrem verbalizes good understanding of pt's critical and grim prognosis in the short term. Consulting Services Project Manager visit requested. I spoke with , RN, machine puller re: my conversations with family. Updated ICU pharmacists also. Comfort care cart requested for Large family group that may be camped out today. Two of pt's sons had not eaten and I got them snacks and all family members water or juice before leaving the unit. to enter new code status order. Will remain available for support.
--- NOTE | 2022-02-07 13:43 | NUR ---
Spiritual care visit conducted. Pt is lying in bed and nonresponsive. Pt's Grandfather, Randolph, requested that someone from spiritual care say a prayer for the pt. I explain to pt who I am and that I am going to be praying for her at the request of family who care for her. I gladly provide prayer. Pt shows no response. I will continue to remain available.
--- NOTE | 2022-02-07 14:37 | NUR ---
DR. BROWN INFORMED THAT HR HAS JUMPED UP TO 150S AND MAP NOT IMPROVING SINCE DOPAMINE ADDED. STATED TO TURN DOPAMINE OFF FOR NOW.
--- NOTE | 2022-02-07 15:38 | NUR ---
Spiritual care visit conducted. Pt's grandfather, Randolph is in the cafeteria (with 5 of pt's boys) and we talk at length about pt's life growing up as he and his raised her. He tells me about going hunting with her and how she jumped out of his truck to go pet a bear cub and then he had to run after her and pull her away because momma bear was coming. He tells me about all of pt's boys and their talents and how pt's oldest son will come to live with him when pt dies. He is tearful at times and was relieved to hear that I went to her rm and prayed for her. He also tells me that he plays guitar and some of the boys with him play guitar as well. So, I go get my guitar out of the office and bring it back to the cafeteria. Randolph and one of the boys take turns playing the guitar. Randolph tells me that he has not played much since his spouse 11 yrs ago. I provide therapeutic listening, grief support and the margy of music. Randolph and the family respond well and show signs of having a little weight lifted at least for the moment. I will continue to remain available.
--- NOTE | 2022-02-07 16:00 | NUR ---
PATIENT HAS CORE TEMP OF 99.1 DEGREES FAHRENHEIT. HR IN THE 130S. SBP 90S TO LOW 100S. PATIENT MAXED OUT ON PRESSORS. NO OTHER ACUTE CHANGES TO NOTE ON AT THIS TIME. PATIENT APPEARS WITHOUT PAIN OR DISTRESS AT THIS TIME. WILL CONTINUE TO MONITOR.
--- NOTE | 2022-02-07 19:15 | NUR ---
ASSUMED CARE OF PT, BEDSIDE REPORT RECEIVED. PT RESTING QUIETLY WITH HOB AT 30, SEDATION GTTS ARE VERIFIED VERSED AT 6 MG/HR AND DILAUDID AT 0.5 MG/HR, PT DOES RESPOND TO LIGHT TOUCH BY MOVING FEET SLIGHTLY, GRIMACING IS NOTED TO NOXIOUS STIMULI, PT DOES NOT OPEN EYES, FOLLOW COMMANDS, OR RESPOND TO VERBAL STIMULI, DOES MOVE ALL 4 EXTREMITIES WELL. BILAT SOFT WRIST RESTRAINTS CONTINUE, SEE RESTRAINT DOCUMENTATION. ETT CONTINUES AT 24 CM AT TEETH, VENT SETTINGS REVIEWED WITH OFFGOING RN, AC/VC 20/500/5.0/30% INS TIME 0.80, CURRENT TIDAL VOLUMES HIGH 400S, RATE 21/MIN, ETCO2 27, SATS 94% LUNGS ARE NOW NOTED CLEAR UPPER TO MID BILAT, DIM BASES, THICK WALTER SPUTUM WITH RED STREAKS IS NOTED IN IN LINE SUCTION TUBING. HEART RATE 120S-130, SINUS TACH WITH INTERMITTENT PVCS, PRESSURES 100-XPO920O/50-60S MAP LOW 70S, WILL MONITOR, PER OFFGOING RN PLAN IS TO ATTEMPT TO TITRATE LEVOPHED DOWN FIRST, PRESSORS VERIFIED DOBUTAMINE AT 20 MCG/KG/MIN FOR 137 KG, VASOPRESSIN 0.04 UNITS/MIN, LEVOPHED AT 30 MCG/MIN, AND EPINEPHRINE AT 10 MCG/MIN. SKIN COLOR IS IMPROVED TO HANDS AND FEET, NOW NOTED PINK AND WARM, PULSES ARE NOW FAINTLY PRESENT TO FEET BILAT, WILL MONITOR. WOUND DRESSINGS ARE CDI AT THIS TIME, WILL PLAN WOUND CARE AND DRESSING CHANGES WITH PT BEDBATH THIS SHIFT. TEMP PROBE BENNETT REMAINS IN PLACE URINE OUTPUT CONTINUES TO IMPROVE, WILL CONT TO MONITOR. PICC LINE DRESSING TO LEFT UPPER ARM IS NOTED WITH EDGE ROLLING UP AND OLD BLOOD UNDER CHG WILL CHANGE DRESSING THIS SHIFT.
--- NOTE | 2022-02-07 19:16 | NUR ---
SHIFT SUMMARY PATIENT REMAINED INTUBATED AND ON SEDATION. PATIENT THRASHING THIS AM ON PROPOFOL AFTER AM CARE BUT HAS APPEARED CONTENT AND COMFORTABLE AFTER DILAUDID DRIP AND VERSED DRIP INITIATED. PATIENT REMAINED RESPONDING TO NOXIOUS STIMULI BUT DID NOT OPEN EYES OR FOLLOW ANY COMMANDS. PATIENT HAD CORE TMAX OF 100.5 DEGREES FAHRENHEIT. PATIENT AFEBRILE AT THIS TIME. PATIENT REMAINED ON SAME VENT SETTINGS EXCEPT FIO2 ABLE TO BE DECREASED TO 30%. PATIENT REMAINED IN ST, HR 120S TO 150S. SBP 60S TO 1-TEENS. MAPS 40S TO 50S MUCH OF THE DAY. HR IMPROVED WHEN DOPAMINE SHUT OFF. PATIENT REMAINS ON DOBUTAMINE AT 20 MCG/ KG/ MINUTE, LEVOPHED AT 30 MCG/ MINUTE, EPINEPHRINE AT 10 MCG/ MINUTE, VASOPRESSIN AT 0.04 UNITS/ MINUTE. MAP NOW IN THE 70S. NO BM THIS SHIFT. PATIENT REMAINED NPO. OG REMAINS TO LIS DRAINING DARK GREEN LIQUID. BENNETT DRAINED LARGE AMOUNT OF YELLOW/ ESDRAS COLORED URINE. NO CHANGES TO SKIN NOTED. PATIENT REPOSITIONED T/O SHIFT. BLOOD SUGARS IN THE 200S; COVERAGE GIVEN AT EACH CHECK. PATIENT'S GRAND-FATHER, FATHER, 6 SONS, AND 2 OF THE FATHERS OF SOME OF THE CHILDREN IN TO SEE PATIENT TODAY. GRAND-FATHER MADE PATIENT DNR TODAY AFTER SEEING PATIENT AND HOW MANY DRIPS INFUSING. LONG DISCUSSION HAD BETWEEN GRAND-FATHER, DOCTOR, PALLIATIVE CARE NURSE AND APPLICATIONS SUPPORT ENGINEER BEFORE DECISION MADE. HEPARIN REMAINS INFUSING AT 15 UNITS/ KG/ HOUR. VERSED AT 6 MG/ HOUR AND DILAUDID AT 0.5 MG/ HOUR. REPORT HAS BEEN GIVEN TO ASSUMING PAINT STRIPING MACHINE OPERATOR NURSE.
--- NOTE | 2022-02-08 | NUR ---
TACHYCARDIA PT WITH HEART RATE INCREASE TO 190S FOLLOWING BEDBATH, LINEN CHANGE, AND REPOSITIONING TO LEFT SIDE. SPOKE WITH DR BROWN REGARDING CURRENT PRESSOR REQUIREMENTS AND CURRENT BLOOD PRESSURES, OF NOTE MAP IS CONTINUING TO MAINTAIN 63-73 WITH THE INCREASED RATE. MULTIPLE OPTIONS DISCUSSED BY DR BROWN AND BEST OPTION PER HIM IS TO POSSIBLY ATTEMPT TO TITRATE THE DOBUTAMINE AND MONITOR HOW HER HEART RATE AND BLOOD PRESSURE RESPOND.
--- NOTE | 2022-02-08 03:05 | NUR ---
SEDATION INCREASED COUGHING NOTED, PT BLINKING EYES, GRIMACING, FEET MOVING, VERSED GTT INCREASED TO 6.5 MG/HR, WILL MONITOR.
[2022-02-08 04:37] LABS: BASOPHILS ABSOLUTE AUTO 0.01 K/mm3 (0.00-0.23); BASOPHILS PERCENT AUTO 0 % (0-2); EOSINOPHILS ABSOLUTE AUTO 0.01 K/mm3 (0.00-0.68); EOSINOPHILS PERCENT AUTO 0 % (0-6); Hematocrit 38.6 % (33.0-51.0); Hemoglobin 12.6 g/dL (11.5-16.0); IMMATURE GRAN ABSOLUTE AUTO 0.13 K/mm3 (0.00-0.10); IMMATURE GRAN PERCENT AUTO 1 % (0-1); LYMPHOCYTES ABSOLUTE AUTO 0.19 K/mm3 (0.84-5.20); LYMPHOCYTES PERCENT AUTO 2 % (21-46); MONOCYTES PERCENT AUTO 4 % (4-13); Mean Corpuscular HGB 26.4 pg (26.0-34.0); Mean Corpuscular HGB Conc 32.6 g/dL (31.5-36.5); Mean Corpuscular Volume 81 fL (80-100); NEUTROPHILS ABSOLUTE AUTO 11.74 K/mm3 (1.96-9.15); NEUTROPHILS PERCENT AUTO 93 % (41-73); NRBC ABSOLUTE 0.14 K/mm3 (0.00-0.02); NRBC Auto 1.1 /100 WBC (0.0-0.2); Platelet Count 153 K/mm3 (150-400); RDW Coefficient Variation 27.7 % (11.7-14.2); RDW Standard Deviation 79.5 fL (35.1-46.3); Red Blood Cell Count 4.78 M/mm3 (3.80-5.20); White Blood Cell Count 12.58 K/mm3 (4.00-11.30)
[2022-02-08 04:41] LABS: Mean Platelet Volume 10.1 fL (9.1-12.4)
[2022-02-08 04:59] LABS: Albumin, Blood 1.9 g/dL (3.4-5.0); Anion Gap 12 mmol/L (6-16); Blood Urea Nitrogen 64 mg/dL (8-24); Bun/Creatinine Ratio 37.2 (12.0-20.0); CO2, Blood 25 mmol/L (21-32); Calcium, Blood 8.1 mg/dL (8.5-10.1); Chloride, Blood 82 mmol/L (98-108); Creatinine, Blood 1.72 mg/dL (0.40-1.00); Glomerular Filtration Rate 39 (60-); Glucose, Blood 300 mg/dL (70-99); Phosphorus, Blood 3.7 mg/dL (2.5-4.9); Sodium, Blood 119 mmol/L (136-145)
--- NOTE | 2022-02-08 06:18 | NUR ---
PT WITH HEART RATE UP TO UPPER 190S AT 2312, DISCUSSED WITH DR BROWN AND DECISION WAS MADE TO ATTEMPT TO TITRATE DOBUTAMINE TO OFF AND MONITOR EFFECT ON HEART RATE, DOBUTAMINE WAS TITRATED DOWN TO 12 MCG/KG/MIN AT WHICH TIME MAPS DECREASED TO LOW 50S AND HEART RATE REMAINED UNCHANGED. DOBUTAMINE WAS TITRATED BACK UP TO 20 AND ATTEMPTED TO TITRATED LEVOPHED, ONLY ABLE TO TITRATE DOWN TO 24 MCG/MIN PRESSURES DECREASED TO 70S SYSTOLIC AND HEART RATE CONTINUED IN THE 180S, HAS SINCE BEEN TITRATED BACK UP TO 26 MCG/MIN. HEART RATE, AND TITRATIONS WERE DISCUSSED WITH DR BROWN THIS AM ON THE UNIT AND NS 500 ML BOLUS WAS ORDERED, REVIEWED PT RESPONSE TO BOLUS WELL AM CXR WITH DR BROWN, NO FURTHER FLUIDS ORDERED. VENTILATOR SETTINGS REMAIN UNCHANGED THROUGHOUT NOC, AC/VC 20/500/5.0/30% SATS REMAIN MID 90S AND RATE LOW TO MID 20S. OG TO LIS DRAINED 200 ML DARK GREEN FLUID, HYPOACTIVE BOWEL TONES CONTINUE, ABD REMAINS DISTENDED AND FIRM SECONDARY TO EDEMA. BENNETT WITH 3900 ML URINE OUTPUT THIS SHIFT. WOUND CARE COMPLETED WITH BEDBATH, WOUNDS CLEANED WITH WOUND CLEANSER AND 4X4 GAUZE, PATTED DRY, AND NONADHERENT DRESSINGS APPLIED TO LEFT LOWER EXTREMITY WOUNDS AND SECURED WITH KERLIX GAUZE. NEW MEPILEX DRESSINGS TO LEFT FLANK WOUNDS. BLOOD GLUCOSE LEVELS INCREASED TO 300S THIS SHIFT AND SLIDING SCALE WAS INCREASED TO HIGH PER DR CRUZ. TOLERATES TURNS EVERY 2 HOURS WITH MILD GRIMACING AND OCCASIONAL COUGH. WILL CONT TO MONITOR AND REPORT TO NEXT SHIFT.
--- NOTE | 2022-02-08 07:13 | NUR ---
Received report from Donna BEDOYA. Patient is intubated and sedated. She has 8.0 ET and is 24cm at teeth with vent settings of AC/VC+ 20/500/30/5 and sats 93%. She withdrawls from from oral care and nocious stimuli. She has PICC line TI and dressing changes last night and is infusing Dobutamine @ 20mcg/kg/min, Vassopressin @ 0.04 units/min, Levophed @ 26 mcgmin, NS TKO x2, Epinepherine 10 mcg/min, Heparin @ 17 units/min, Versed 6.5 mg/hr, Dilaudid 0.5mg/hr. She has 16 Fr temp booth draining to gravity dark yellow urine and temp of 99.3. See wound pics of left side, bilateral feet and left lower rock. Oral care and repositioned.
--- NOTE | 2022-02-08 09:36 | NUR ---
No changes to am note. increaseing strengths on pressors to decrease volumes. No changes to vent and gtt settings as of now. VS stable at systoloic 90-100 on current pressors and HR 120-130's. Moderate output for emmy and is patent.
--- NOTE | 2022-02-08 11:57 | NUR ---
Patient continues on vent with vent setting 20/500/30/5 and sats 94%. post lasix output 2400 ml's yellow urine, repositioned and am care done. No family by yet today. No changes to vent or gtt's. No changes to neuro's and withdrawls from care and or noctious stimuli. No curremnt movement of extremities and will watch to see if can remove restraints.
[2022-02-08 12:30] LABS: Vancomycin, Random 22.8 ug/mL
--- NOTE | 2022-02-08 14:24 | NUR ---
No changes to vent settings. Dobutamine has been changed to 4x dose and using NS instead of D5, Levophed has been chaged to 4x does and left in D%, and epineperine remains the same higher dose, Vasopressin no change. Patient continues with sedation of Versed and working well. Urine output remains good output. No neuro changes. Many famil have called and gave updates.
--- NOTE | 2022-02-08 15:47 | NUR ---
No changesd to vent, gtt's and or neuro. Repositioned and performed oral care. Continue to update family.
[2022-02-08 16:15] LABS: Anion Gap 13 mmol/L (6-16); Blood Urea Nitrogen 52 mg/dL (8-24); Bun/Creatinine Ratio 39.1 (12.0-20.0); CO2, Blood 25 mmol/L (21-32); Calcium, Blood 8.6 mg/dL (8.5-10.1); Chloride, Blood 81 mmol/L (98-108); Creatinine, Blood 1.33 mg/dL (0.40-1.00); Glomerular Filtration Rate 54 (60-); Glucose, Blood 249 mg/dL (70-99); Phosphorus, Blood 3.3 mg/dL (2.5-4.9); Potassium, Blood 3.4 mmol/L (3.5-5.5); Sodium, Blood 119 mmol/L (136-145)
--- NOTE | 2022-02-08 18:00 | NUR ---
Patient remains intubated and sedated with 8.0 ET and 24 cm at with vent setting AC/VC+ 20/500/30/5 and sats >90%. She has TI PICC that is infusing Dobutamine 5 mcg/kg/min and is x4 dose, Vasopressin at 0.04 units/min, Levophed at 20 mcg/min x4 doses, Epinepherine at 10mcg/min and is max strength dose, NS x2 TKO, Heparin at 18 units/kg/min, Versed at 6.5mg/hr, and dilaudid at o.5mg/hr. She has 16Fr temp booth draing to gravity and had 3700 ml output dark yellow urine.Patient withdrawls with any care and nocious stimuli.
--- NOTE | 2022-02-08 19:15 | NUR ---
ASSUMED CARE OF PT @1900. PT IS SEDATED AND INTUBATED. VERSED 6.5MG/HR, DILAUDID 0.5MG/HR. VENT 20/500/5/40%. RR 22, SPO2 >92%. CONTINUOUS CARDIAC MONITORING. HR 130'S. SBP 100-110. EPINEPHRINE 10MCG/MIN, LEVOPHED 20MCG/MIN, DOBUTAMINE 20MCG/KG/MIN, HEPARIN 18U/KG/HR, VASOPRESSIN 0.04U/MIN. PICC TI. OG PATENT AND CLAMPED. BENNETT CATH PATENT AND DRAINING DARK URINE TO GRAVITY. MULTIPLE FAMILY MEMBERS PRESENT AT BEDSIDE.
[2022-02-09 02:32] LABS: BASOPHILS ABSOLUTE AUTO 0.02 K/mm3 (0.00-0.23); BASOPHILS PERCENT AUTO 0 % (0-2); EOSINOPHILS ABSOLUTE AUTO 0.04 K/mm3 (0.00-0.68); EOSINOPHILS PERCENT AUTO 0 % (0-6); Hematocrit 37.8 % (33.0-51.0); Hemoglobin 12.9 g/dL (11.5-16.0); IMMATURE GRAN ABSOLUTE AUTO 0.18 K/mm3 (0.00-0.10); IMMATURE GRAN PERCENT AUTO 2 % (0-1); LYMPHOCYTES ABSOLUTE AUTO 0.19 K/mm3 (0.84-5.20); LYMPHOCYTES PERCENT AUTO 2 % (21-46); MONOCYTES ABSOLUTE AUTO 0.77 K/mm3 (0.16-1.47); MONOCYTES PERCENT AUTO 7 % (4-13); Mean Corpuscular HGB 26.8 pg (26.0-34.0); Mean Corpuscular HGB Conc 34.1 g/dL (31.5-36.5); Mean Corpuscular Volume 79 fL (80-100); NEUTROPHILS PERCENT AUTO 89 % (41-73); NRBC ABSOLUTE 0.08 K/mm3 (0.00-0.02); NRBC Auto 0.8 /100 WBC (0.0-0.2); Platelet Count 122 K/mm3 (150-400); RDW Standard Deviation 79.4 fL (35.1-46.3); Red Blood Cell Count 4.81 M/mm3 (3.80-5.20)
[2022-02-09 02:46] LABS: Anion Gap 13 mmol/L (6-16); Blood Urea Nitrogen 47 mg/dL (8-24); Bun/Creatinine Ratio 39.2 (12.0-20.0); CO2, Blood 25 mmol/L (21-32); Calcium, Blood 8.4 mg/dL (8.5-10.1); Chloride, Blood 84 mmol/L (98-108); Glomerular Filtration Rate 61 (60-); Glucose, Blood 162 mg/dL (70-99); Phosphorus, Blood 3.3 mg/dL (2.5-4.9); Potassium, Blood 3.3 mmol/L (3.5-5.5); Sodium, Blood 122 mmol/L (136-145)
--- NOTE | 2022-02-09 03:10 | NUR ---
PT DAD CALLED AND STATED HE WAS GOING TO "COME GET HER AND HE WANTS HER TAKEN TO [facility]." DISCUSSED THAT DECISIONS WOULD NEED TO BE MADE BY HER GRANDFATHER, MELY, AND HER HEALTHCARE TEAM IN THE MORNING. HER FATHER KEPT STATING "HE WASN'T GOING TO LET HER GO AND WANTED HER TAKEN TO [facility]" THEN SAID HE WAS CALLING HER GRANDFATHER AND HUNG UP.
--- NOTE | 2022-02-09 06:07 | NUR ---
SUMMARY: NEURO/PSYCH/MOBILITY: PT REMAINS SEDATED AND INTUBATED. VERSED 6.5MG/HR, DILAUDED 0.5MG/HR. PT REACTS TO NOXIOUS STIMULI. PULLS AGAINST RESTRAINTS AND TRIES TO REACH UP DURING ORAL CARE. GRIMACES AND MOVES HEAD AWAY FROM ORAL CARE. DOES NOT FOLLOW COMMANDS OR RESPOND TO VERBAL STIMULI. PT HAS A FIXED UPWARDS GAZE W/RIGHT EYE. PUPILS ARE SMALL AND SLUGGISH. SCLERA IS RED/YELLOW/EDEMETOUS. TEMP 99.1. PT IS RELAXED AND CALM WHEN NOT STIMULATED. BSWR IN PLACE. RESP: DIMINISHED LUNG SOUNDS THROUGHOUT. SUCTIONING SMALL AMOUNTS OF THICK BLOOD TINGED YELLOW SECRETIONS FROM ETT TUBE. ETT 8.0CM, 24CM @TEETH. AC VC 20/500/5/35%. RR 20-22. SPO2 >92%. CARDIAC: CONTINUOUS CARDIAC MONITORING. HR 130'S. W/MULTIFORM PVC'S AND SHORT RUNS OF VFIB/TACH THROUGHOUT SHIFT. SBP 100-110. EPINEPHRINE 6MCG/MIN, LEVOPHED 17MCG/MIN, VASOPRESSIN 0.04U/MIN, HEPARIN 20U/KG/HR, DOBUTAMINE 20MCG/KG/MIN. ANASARCA NOTED. EDEMA 2-3+ IN BLE/BUE. GI: DISTENDED, HARD ABDOMEN W/HYPOACTIVE BS IN ALL 4 QUADRANTS. NO BOWEL MOVEMENTS THIS SHIFT. OG TUBE FLUSHED AND PATENT. CLAMPED. WHEN ON LIS NO OUTPUT THIS SHIFT. : TEMP BENNETT PATENT AND DRAINING DARK ESDRAS URINE TO GRAVITY. 1600MLS OUTPUT THIS SHIFT. SKIN: ASSESSMENT REMAINS UNCHANGED. PICTURES IN CHART. BANDAGE IN PLACE ON LLE. MEPILEX ON L LATERAL SIDE. POWDER ON GROIN FOLDS AND MARQUISE AREA. PICC IN TI PATENT AND INFUSING.
--- NOTE | 2022-02-09 07:45 | NUR ---
Patient remains intubated and sedated. She has 8.0 ET and is 24 cm at teeth. Current vent settings are AC/VC+ 20/500/30/5 and sats 95%. She withdrawl;s with care and nocious stimuli. She has PICC line to TI and dressing intact and site WNL's and is infusing Dobutamine at 20 mcg/kg/min and x4 dose bag, Vasopressin at 0.04 units/min, Levophed 17 mcg/min and is x4 dose bag, NS TKO x2, Epinepherine 6 mcg/min and is max dose bag, Heaprin at 20 units/kg/min, Versed 6.5 mg/h, and Dilaudid 0.5 mg/hr. She has multiple wound t/o, see woun d pics, wound care by yesterday and addressed dressings. She has 16Fr temp booth draining to gravity dark yellow urine and temp of 99.2. No new care decsions from family.
--- NOTE | 2022-02-09 09:50 | NUR ---
Patient has been having short runs of V-tach and frquent PVC. No changes to vent settings or gtt's. She was swing her extremities when doing haydee care and oral care. Dr'huy have visited and no new orders. Dr Garner will communicate with [facility] and check for possible transfer as father requested although Randolph grandfather making decsions.
[2022-02-09 11:38] LABS: Vancomycin, Random 12.8 ug/mL
--- NOTE | 2022-02-09 11:48 | NUR ---
Talked with several family members and gave updates and carmela the decsion maker has a hard time understanding and gets things mixed up when talling with family and they are calling confused when they get wrong update. We have made no adjustments to vent or gtt's and systolic 100 and sats 94%, HR continues 130's. No changes to neuro from earlier note. Family on there way in to see her.
--- NOTE | 2022-02-09 13:51 | NUR ---
Patient continues to have no changes to vent and or gtt's. No new neuro changes. Family will be in today and will talk about how they want to proceed. Good urine out put post lasix.
--- NOTE | 2022-02-09 15:54 | NUR ---
Patient remains intubated on same setting and sats 95% . Cough with positioning and haydee care. ET suction creamy white with blood tinge. No gtt changes and systolic 100 and HR130's. Urine 1100 ml orange urine. Stll withdrawls and flails extremities with haydee care and oral care. Continues to have runs of vtach and multiple PVC's.
--- NOTE | 2022-02-09 17:35 | NUR ---
Patient continues to be intubated and sedated. She has 8.0 Et and 24 cm at teeth . her settings are AC/VC+ 20/500/30/5 and sats 95%. She has PICC line in TI dressing intact and site WNL's and is infusing Dobutamine at 20 mcg/kg/min and is x4 dose bag, Vasopressin 0.04 units/min, Levophed at 17 mcg/min and is x4 dose bag, NS TKO x2, Epinepherine at 10 mcg/min and bag is at max dose, Heparine at 22 units/kg/min, Versed at 6.5 mg/hr, and Dilaudid at 0.5 mg/hr. She continues to withdrawl with care and nocious stimuli. She has 16 Fr Temp booth draining to gravity 1150 ml of orange urine. Several family ahs been by.
[2022-02-10 05:37] LABS: BASOPHILS ABSOLUTE AUTO 0.03 K/mm3 (0.00-0.23); BASOPHILS PERCENT AUTO 0 % (0-2); EOSINOPHILS ABSOLUTE AUTO 0.04 K/mm3 (0.00-0.68); EOSINOPHILS PERCENT AUTO 0 % (0-6); Hematocrit 39.6 % (33.0-51.0); Hemoglobin 12.8 g/dL (11.5-16.0); IMMATURE GRAN PERCENT AUTO 4 % (0-1); LYMPHOCYTES ABSOLUTE AUTO 0.28 K/mm3 (0.84-5.20); LYMPHOCYTES PERCENT AUTO 3 % (21-46); MONOCYTES ABSOLUTE AUTO 0.95 K/mm3 (0.16-1.47); MONOCYTES PERCENT AUTO 8 % (4-13); Mean Corpuscular HGB 26.7 pg (26.0-34.0); Mean Corpuscular HGB Conc 32.3 g/dL (31.5-36.5); Mean Corpuscular Volume 83 fL (80-100); Mean Platelet Volume 10.9 fL (9.1-12.4); NEUTROPHILS ABSOLUTE AUTO 9.51 K/mm3 (1.96-9.15); NEUTROPHILS PERCENT AUTO 84 % (41-73); NRBC ABSOLUTE 0.05 K/mm3 (0.00-0.02); NRBC Auto 0.4 /100 WBC (0.0-0.2); Platelet Count 123 K/mm3 (150-400); RDW Coefficient Variation 29.2 % (11.7-14.2); RDW Standard Deviation 86.5 fL (35.1-46.3); White Blood Cell Count 11.31 K/mm3 (4.00-11.30)
[2022-02-10 06:04] LABS: Albumin, Blood 1.9 g/dL (3.4-5.0); Anion Gap 12 mmol/L (6-16); Blood Urea Nitrogen 45 mg/dL (8-24); Bun/Creatinine Ratio 39.8 (12.0-20.0); CO2, Blood 23 mmol/L (21-32); Calcium, Blood 8.8 mg/dL (8.5-10.1); Chloride, Blood 89 mmol/L (98-108); Creatinine, Blood 1.13 mg/dL (0.40-1.00); Glomerular Filtration Rate 65 (60-); Glucose, Blood 178 mg/dL (70-99); Phosphorus, Blood 3.2 mg/dL (2.5-4.9); Potassium, Blood 3.7 mmol/L (3.5-5.5); Sodium, Blood 124 mmol/L (136-145)
--- NOTE | 2022-02-10 06:32 | NUR ---
EMD OF SHIFT SUMMARY PT HAS REMAINED CRITICALY ILL. I HAVE NOT NEEDED TO TITRATE PRESSORS OVER NIGHT THE CURRENT RATE FOR DOBUTAMINE IS 20 VASO .04 LEVO 17 EPI 6 THE CURRENT RATES HAVE KEEPT MAP>65. HEPRIN WAS INCREAST TO 23 RECHECK IS FOR 1200. PT HAS A CONTINUOUS DILAUDID RATE. SHE PUT OUT 900 ML BUT HAD 1900 IN. VENT SETTINGS REMAINED THE SAME SMALL AMOUT OF PINK TING SPUTUM FROM ETT. PT HAS HYBRID TECHNOLOGIST EDEMA IN ALL EXTREMITIES AND ABDOMIN. PT HAS YEAST SO SIGNIFICANT IN GROIN AND UNDER PANIS THE LUKE IS FALLING OFF IN LAYERS. SHE IS BEING FOLLOWED BY WOUND CARE FOR LOWER EXTREMITIES. PT HR DID ELEVATE AT 126 HIGH 2210 AN AMNIO BOLUS 150MG WAS GIVEN WITH NO REDUCTION IN HR. WILL REPORT OFF TO ONCOMING RN
--- NOTE | 2022-02-10 07:00 | NUR ---
ASSUMED CARE OF PT AT 0700 PT SEDATED AND INTUBATED. RESPONDS TO PAINFUL STIMULI. HR 170'S WITH REPORT FROM ASSEMBLER DECK AND HULL THAT THIS STARTED AROUND 0100, WAS MEDICATED PER DOCTOR ORDERS WITH NO ACHIEVMENT OF LOWERING. LEVO, EPI, DOBUTAMINE, VASO, HEPARIN, VERSED, AND DILAUDID RUNNING AT THIS TIME. VENT SETTINGS AT 20/500/5/30%. SOFT WRIST RESTRAINTS ON AT THIS TIME. BENNETT DRAINING TO GRAVITY WITH ESDRAS COLORED URINE PRESENT. SEE ASSESSMENT FOR FURTHER INFORMATION.
--- NOTE | 2022-02-10 10:30 | NUR ---
PT GRANDFATHER MELY IN ROOM WITH THIS RN AND CAYETANO FOR PASTORAL CARE. MELY APPROVED COMFORT CARE FOR PATIENT AT THIS TIME. DR BROWN INFORMED OF CHANGE OF STATUS.
--- NOTE | 2022-02-10 11:13 | NUR ---
Spiritual care visit conducted. I sit with pt's Grandfather, Randolph, in pt's rm. He tells me about his memories of Libby as she was growing up, about how much he loves her and how much it hurts him that she got involved with drugs. He tells me that he understands about the dire situation the pt is in medically and says, "She needs to go, I don't want her to suffer and live like this, she needs to go and be with my . Please, just call me when it is over." I then, ask RN Justyn to come in and witness Randolph's statement to move pt to comfort measures only. Randolph again repeats his statement, "She needs to go." He then talks about not wanting her to be put in a little box but that he wants her buried in the ground. I explain that that is the role of the home and that they will assist him with those needs. Randolph is tearful and says his goodbyes to the pt telling her that he loves her. I provide prayer and push Randolph in a wheelchair to his car. He voices his appreciation for the time and care. I will continue to remain available to pt and family.
--- NOTE | 2022-02-10 12:00 | NUR ---
COMFORT CARE Pt's grandfather and decision maker, Randolph, in to see patient today. Plan of care discussed by Ann BEDOYA and senior power scheduler Tim. Randolph elected to transition to comfort measures. This decision witnessed by Justyn BEDOYA. Discussed with Dr Garner, who entered new orders. Pt medicated for comfort and extubated at 1155. OG tube removed and all IV drip medications turned off at this time. Restraints removed. Patient given morphine and ativan in small incremental doses until comfort achieved.
--- NOTE | 2022-02-10 13:08 | NUR ---
Spiritual care visit conducted. I played therapeutic guitar music before and and after extubation as well as provide prayer for pt. I will continue to remain available.
--- NOTE | 2022-02-10 13:48 | NUR ---
RECIEVED CALL FROM LORRAINE (PT COUSIN) REQUESTING STATUS UPDATE. LORRAINE REQUESTING TO BE CONTACTED WHEN PT HAS PASSED. RT, DASH RN, AND THIS RN IN ROOM AT 1200. EXTUBATION OCCURED WITH PAIN MEDICATION ORDERED. CAYETANO FROM PC IN ROOM PLAYING [email or web address].
--- NOTE | 2022-02-10 16:35 | NUR ---
SUMMARY This shift, pt changed to comfort care with liberation from ventilator and removal of vasopressors. Medicated several times for air hunger manifesting as tachypnea with gasping. Air hunger relieved with morphine and occasional ativan. Scopalamine patch and SL atropine for audible secretions in airway and pharynx. Pt's grandfather departed and stated does not want to be present for comfort measures, but would like to be called when the patient passes away. Call placed to final discharge, states they would like notification with cardiac TOD.
--- NOTE | 2022-02-10 20:44 | NUR ---
ASSUMED CARE OF PATIENT AT 1900. PATIENT COMFORT CARE STATUS. FAMILY IN AND OUT. PATIENT GIVEN PRN MEDICATIONS PER EMAR.
--- NOTE | 2022-02-11 11:00 | NUR ---
ICU TRANSFER RECEIVED REPORT FROM EMILY BEDOYA. PT RECEIVED VIA BED TRANSFER TO ROOM 356. PT TRANSFERRED OVER TO MED BED. MADE COMFORTABLE. PT IS COMFORT CARE AND IS NON RESPONSIVE. IS DUSKY, PALE AND RESP EVEN THOUGH SOMEWHAT LABORED & RATTLING IN NATURE. IS ALSO MOTTLED IN LE's. F/C INTACT & PATENT, DRAINING SCANT DARK YELLOW URINE. LL LEG WRAPPED IN KERLEX DRESSING. PICC LINE IN L UA.
--- NOTE | 2022-02-11 11:01 | NUR ---
TRANSFER TO MEDICAL PT TRANSFERED TO ROOM 356 VIA BED. REPORT GIVEN VIA PHONE, ALL QUESTIONS ANSWERED. ALL PT BELONGINGS SENT WITH PT. PT APPEARED COMFORTABLE UPON TRANSFER. PT FAMILY UPDATED ON TRANSFER.
--- NOTE | 2022-02-11 15:23 | NUR ---
S/W PT'S FATHER S/W PT'S DAD MELY AT PH#[phone]. THIS RN REQUESTED PERINATAL INSTRUCTOR TO BE AVAILABLE TO S/W DAD WHEN HE GETS HERE. PT'S DAD IS ON HIS WAY TO SEE PT.
--- NOTE | 2022-02-11 17:22 | NUR ---
Spiritual Care Visit - Nurse Request Pt. is comfort care and displays evidence of transitioning. Attending nurse requested spiritual care as family was coming to see Pt. Pt. is not responsive. Some family members arrived. Rapport was established and Prayer was given for the Pt. and the family. Pts. KYLE (her grandfather) arrived with Pts. eldest son. Once again rapport was established and appropriate grief is observed. Pastoral care with a calming presence is given. Facilitated a Life review, many fond stories were told. The son and the father asked this seed sorter to read scripture and to pray for the Pt. and for them once again. Pts. grandfather and son verbalized gratitude for the spiritual care visit. Pt. is still lingering when they depart with her personal items. The grandfather has requested being contacted when the Pt. passes. The family does not expect any more visitors. [facility] in [place] was chosen by the family for care.
--- NOTE | 2022-02-11 18:16 | NUR ---
SHIFT SUMMARY COMFORT CARE. PT NON-RESPONSIVE WITH ULISES-DAVE RESP, PERIODS OF APNEA BWTN BREATHS. FAMILY VISITED WITH PT, QUALITY ASSURANCE CLERK AT BEDSIDE FOR COMFORT. PT'S FATHER'S CHOICE FOR HOME IS [facility]. DON'T EXPECT PT TO MAKE IT THROUGH THE NIGHT.
--- NOTE | 2022-02-11 19:41 | NUR ---
PT UNRESPONSIVE; LIPS ARE BLUE AND EXCESS SECRETIONS NOTED IN ORAL CAVITY; USED SUCTION; AUDIBLE RATTLE. PT LOWER LIMBS ARE MOTTLED AND COLD.
--- NOTE | 2022-02-11 21:43 | NUR ---
APPLIED ORAL SUCTION FOR SECRETIONS. NO CHANGES SINCE LAST ASSESSMENT.
--- NOTE | 2022-02-11 23:26 | NUR ---
APPLIED ORAL SUCTION FOR EXCESS SECRETIONS. NO CHANGES SINCE LAST COMFORT ASSESSMENT.
--- NOTE | 2022-02-12 05:13 | NUR ---
PHYSICS TECHNICAL OFFICER SUMMARY CONT W/PT COMFORT CARE ASSESSMENTS Q2 HOURS. PT REMAINS UNRESPONSIVE. ULISES DAVE RESP W/APNEA NOTED. AUDIBLE RATTLE W/BREATHING. APPLIED ORAL SUCTION T/O THE NIGHT. PT IS CYANOTIC; ALL EXTREMITIES ARE COLD TO TOUCH. UNCLE/AUNT AND COUSIN CAME TO SEE PT LAST NIGHT. FAMILY REPORTED PT'S GRANDPA (TO BE NOTIFIED AT TIME OF ) IS GOING TO HAVE MEDICAL PROCEDURE. FAMILY REQUESTED WE ALSO NOTIFY HUSAM (CONTACT NUMBER IN PT CHART).
--- NOTE | 2022-02-12 07:23 | NUR ---
NO CHANGES FROM LAST ASSESSMENT. ADMISTERED ORAL SUCTION AND ATROPINE DROPS FOR SECRETIONS. PT VERY ODOROUS FROM WOUNDS. REDRESSED WOUNDS ON LLE AND COMPLETED PERICARE. CHANGED BEDDING AND GOWN.
--- NOTE | 2022-02-12 08:14 | NUR ---
COMFORT CARE ASSESSMENT Q2. PATIENT REMAIN UNRESPONSSIVE. PATIENT HAS AUDIBLE RATTLE WITH BREATHING. ADMINISTERED ATROPINE DROPS FOR SECRETION AND ROXANOL FOR AIR HUNGER. ORAL CARE & REPOSITION FOR COMFORT.
--- NOTE | 2022-02-12 09:42 | NUR ---
Comfort Care Visit Pt resting in bed and is non responsive. Moderate secretions noted. Mild mottling noted on BLLE. Pt appears comfortable with no S/S of distress at this time. Spoke with Primary RN Marlene and discussed case. Roxanol and Atroprine recently given for comfort. Palliative Care will remain available.
--- NOTE | 2022-02-12 15:25 | NUR ---
PT WITH DRESSING ON LLE, SATURATED WITH SEROUS FLUID. OLD DRESSING REMOVED. WOUNDS CLEANSED WITH WOUND CLEANSER AND PATTED DRY. WOUNDS COVERED WITH ABD PAS, WRAPPED IN ROLLED GAUZE, AND SECURED WITH TAPE. PILLOW CASE ON PILLOW UNDER LLE CHANGED AND DRY FLOW PAD PLACED UNDER LLE. PT TOLERATED WELL.
--- NOTE | 2022-02-12 17:33 | NUR ---
SHIFT SUMMARY: PATIENT REMAIN UNRESPONSSIVE AND SOME PAUSES OF BREATHING T/O SHIFT. PATIENT CONTINUE TO HAVE AUDIBLE RATTLE WITH BREATHING. RECIEVED ATROPINE DROPS FOR SECRETION AND ROXANOL FOR AIR HUNGER PER EMAR. ORAL CARE AND HAS BEEN REPOSITION T/O SHIFT FOR COMFORT. PATIENT FAMILY CAME BY TODAY. UPDATE GIVEN TO PATIENT COUSIN LORRAINE GRANFATHER IS CURRENTLY IN ICU A PATIENT. BED IN LOWEST POSITION, LOCKED AND CALL LIGHT IN REACH.
--- NOTE | 2022-02-12 21:56 | NUR ---
PT IS UNRESPONSIVE AND CYANOTIC. EXTREMETIES ARE COOL TO TOUCH AND MOTTLED. AUDIBLE RATTLE WITH RESPIRATIONS AND PERIOD OF APNEA. USED ORAL SUCTION FOR SECRETIONS. PT DID BITE DOWN ON THE SUCTION TUBE.
--- NOTE | 2022-02-12 22:01 | NUR ---
NO CHANGES SINCE LAST COMFORT ASSESSMENT. ADMINISTERED ATROPINE DROPS AND ROXANOL FOR AIR HUNGER.
--- NOTE | 2022-02-13 07:36 | NUR ---
PHOTOLETTERING MACHINE OPERATOR SUMMARY--PATIENT PASSED FOUND PATIENT UNRESPONSIVE, NOT BREATHING, AND NO PULSE. ASCULTATED HEART; NO HEART BEAT DETECTED. VERIFIED W/A SECOND RN--LISA ZIEGLER. PT PRONOUNCED AT 0135. CHARGE NURSE, NURSING PACKAGE DYER, PHYSICIAN, AND FAMILY NOTIFIED. CONTACTED PATIENT'S COUSIN, HUSAM; FAMILY DECLINED TO COME AND SEE THE PATIENT. GRANDFATHER IS CURRENTLY IN THE ICU; LEFT MESSAGE WITH ICU NURSE TO GIVE NOTICE. [facility] WAS NOTIFIED. ALL BELONGINGS OF THE PATIENT PREVIOUSLY WENT HOME WIHT FAMILY; NO BELONGINGS LEFT IN THE ROOM. PICC LINE AND BENNETT CATH REMOVED. ICE PACKS APPLIED TO EYES.
== END 2022-02-13 01:35 | DRG 871 ==
LOC: ER 04:15 → ICUW 06:31 → MEDS 06:31 → ICUW 07:31 → MEDS 02-11 10:41
PROVIDERS: Emergency Medicine; Internal Medicine; Internal Medicine Critical Care Medicine; ADMIT Internal Medicine
PROC: 3E033XZ Introduction of Vasopressor into Peripheral Vein, Percutaneous Approach (ICD-10-PCS; principal; 2022-02-06)
PROC: 3E03329 Introduction of Other Anti-infective into Peripheral Vein, Percutaneous Approach (ICD-10-PCS; 2022-02-06)
PROC: 02HV33Z Insertion of Infusion Device into Superior Vena Cava, Percutaneous Approach (ICD-10-PCS; 2022-02-06)
PROC: 0BH18EZ Insertion of Endotracheal Airway into Trachea, Via Natural or Artificial Opening Endoscopic (ICD-10-PCS; 2022-02-06)
PROC: 5A1945Z Respiratory Ventilation, 24-96 Consecutive Hours (ICD-10-PCS; 2022-02-06)
DX: A41.02 Sepsis due to Methicillin resistant Staphylococcus aureus (principal); G92.8 Other toxic encephalopathy; J96.01 Acute respiratory failure with hypoxia; I50.23 Acute on chronic systolic (congestive) heart failure; R65.21 Severe sepsis with septic shock; J96.02 Acute respiratory failure with hypercapnia; I42.7 Cardiomyopathy due to drug and external agent; N17.9 Acute kidney failure, unspecified; F05 Delirium due to known physiological condition; R17 Unspecified jaundice; E87.1 Hypo-osmolality and hyponatremia; L03.116 Cellulitis of left lower limb; I42.0 Dilated cardiomyopathy; I13.0 Hypertensive heart and chronic kidney disease with heart failure and stage 1 through stage 4 chronic kidney disease, or unspecified chronic kidney disease; Z51.5 Encounter for palliative care; Z78.1 Physical restraint status; Z66 Do not resuscitate; Z20.822 Contact with and (suspected) exposure to COVID-19; R57.0 Cardiogenic shock; N18.9 Chronic kidney disease, unspecified; E11.22 Type 2 diabetes mellitus with diabetic chronic kidney disease; F41.9 Anxiety disorder, unspecified; T43.655A Adverse effect of methamphetamines, initial encounter; I48.91 Unspecified atrial fibrillation; Z86.711 Personal history of pulmonary embolism; Z95.810 Presence of automatic (implantable) cardiac defibrillator; Z98.891 History of uterine scar from previous surgery; Z98.51 Tubal ligation status; Z87.01 Personal history of pneumonia (recurrent); Z88.0 Allergy status to penicillin; Z88.8 Allergy status to other drugs, medicaments and biological substances; Z79.01 Long term (current) use of anticoagulants; Z79.899 Other long term (current) drug therapy
CPT/HCPCS: 0241U; 31500; 36415; 36569; 36600; 51702; 71045; 80053; 80069; 80202; 81001; 82140; 82570; 82803; 82947; 83605; 83735; 83880; 83930; 83935; 84100; 84300; 84484; 85025; 85610; 85730; 87040; 87070; 87077; 87147; 87186; 87205; 93005; 93010; 94002; 94003; 94640; 94660; 94664; 94760; 96374-59; 99291-25; A9270; C1751; C1769; C8929; C9113; J0171; J0282; J0610; J0690; J0692; J1170; J1250; J1265; J1644; J1720; J1815; J1940; J2060; J2250; J2270; J2704; J3010; J3370; J3480; J7030; J7040; J7050; J7060; P9047; Q9957